=== PATIENT | female | born 1985 | race Caucasian/White ===

== ENCOUNTER 2018-09-01 16:12 | Outpatient (REF) | payer OTHER, SELFPAY ==
--- NOTE | 2018-09-01 15:40 | ENDO_PTH ---
PATIENT: Sima Mann LOC: [facility] U#:[id number] AGE/SX: 32/F ROOM: RE09/01/[address]: Sima Boucher : 1985 BED: DIS: 09/01/2018 SPEC #: [id number] RECD: 09/01/18 17:40 STATUS: ELDON VAZQUEZ #: [id number] FRANCISCA: 09/01/18 15:[address]: Sima Boucher DEPT: Surgical Specimen RECD BY: Amy Rangel ENTERED: 09/01/18 17:40 SP TYPE: Endo OTHR DR: Fanta Keane Tissues: 1 - ENDOCERVICAL BX/CURRETTE 2 - CERVICAL BIOPSY Procedures: GROSS AND MICRO LEVEL 4 IMMUNOPEROXIDASE STAIN P16 IPEX Comments: [id number]
== END 2018-09-01 16:32 ==
LOC: LBN 16:12
PROVIDERS: PCP Family Medicine; Visit Provider Obstetrics & Gynecology Gynecology
DX: N87.1 Moderate cervical dysplasia (principal); R87.610 Atypical squamous cells of undetermined significance on cytologic smear of cervix (ASC-US); B97.7 Papillomavirus as the cause of diseases classified elsewhere
CPT/HCPCS: 88305; 88342; 88361

== ENCOUNTER 2018-10-19 11:31 | Outpatient (CLI) | payer OTHER, SELFPAY ==
--- NOTE | 2018-10-19 11:26 | DI.RAD_ITS ---
SYMPTOMS/DIAGNOSIS: CACHORRO WRIST PAIN LEFT WRIST: The bones are normally mineralized. No bony erosions or degenerative changes are seen. IMPRESSION: Negative left wrist. RIGHT WRIST: The bones are normally mineralized. No bony erosions are seen. The carpal alignment appears normal. IMPRESSION: Negative right wrist.
== END 2018-10-19 11:51 ==
PROVIDERS: PCP Family Medicine; Visit Provider Physician Assistant
DX: M25.531 Pain in right wrist (principal); M25.532 Pain in left wrist
CPT/HCPCS: 73110

== ENCOUNTER 2018-10-23 12:11 | Outpatient (REF) | payer OTHER, SELFPAY ==
--- NOTE | 2018-10-23 08:40 | CER_PTH ---
PATIENT: Sima Mann LOC: [facility] U#:[id number] AGE/SX: 33/F ROOM: RE10/23/[address]: Sima Boucher : 1985 BED: DIS: 10/23/2018 SPEC #: [id number] RECD: 10/23/18 13:02 STATUS: ELDON VAZQUEZ #: [id number] FRANCISCA: 10/23/18 08:[address]: Sima Boucher DEPT: Surgical Specimen RECD BY: Amy Rangel ENTERED: 10/23/18 13:03 SP TYPE: CER OTHR DR: Fanta Keane Tissues: 1 - CERVICAL BIOPSY 2 - CERVICAL BIOPSY 3 - CERVICAL BIOPSY 4 - CERVICAL BIOPSY Procedures: GROSS AND MICRO LEVEL 4 Comments: [id number]
== END 2018-10-23 12:31 ==
LOC: LBN 12:11
PROVIDERS: PCP Family Medicine; Visit Provider Obstetrics & Gynecology Gynecology
DX: N87.9 Dysplasia of cervix uteri, unspecified (principal); R87.613 High grade squamous intraepithelial lesion on cytologic smear of cervix (HGSIL)
CPT/HCPCS: 88305

== ENCOUNTER 2018-11-26 08:47 | Day surgery (SDC) | payer OTHER, SELFPAY ==
[2018-11-26 09:00] VITALS: BP 126/80; PULSE 83; RESP 16; TEMP 36.3; O2SAT 98
[2018-11-26] MEDS: Lactated Ringers 1,000 ML 80 ML IV (09:25)
[2018-11-26 10:46] LABS: HCG Quant, Pregnancy < 1 mIU/mL (1-3)
[2018-11-26] MEDS: Lidocaine 1% Multi-Dose 50 ML VIAL (11:16)
--- NOTE | 2018-11-26 11:37 | PDOC.DSDIS_ITS ---
Discharge Plan Disposition Patient Disposition: HOME Condition: Good Discharge Details Reason For Visit: L Carpal Tunnel Syndrome Attending Provider: Galileo Godinez Primary Care Provider: Fanta Keane Home Meds and New Rx's Prescriptions: New acetaminophen 500 mg tablet 1,000 mg PO Q8H PRN (Reason: pain) Qty: 60 RF: 3 ibuprofen 600 mg tablet 600 mg PO TID PRN (Reason: pain) Qty: 60 RF: 3 Continued Mirena 1 EACH intrauterine device 1 ea Intrauterine ONCE Qty: 1 RF: 0 cholecalciferol (vitamin D3) 1,000 UNIT capsule 1,000 unit PO DAILY RF: 0 escitalopram oxalate [Lexapro] 5 MG tablet 5 mg PO DAILY RF: 0 multivitamin [Daily Multi-Vitamin] 1 EACH tablet 1 ea PO RF: 0 prochlorperazine maleate 5 MG tablet 1 - 2 tab PO Q8H PRN Qty: 90 RF: 4 Discontinued ibuprofen [Advil] 200 MG tablet 800 mg PO PRN RF: 0 Discharge Instructions Stand Alone Forms: Gretchen Mccann Tunnel Release Referrals: Galileo Godinez MD [ [facility] STAFF PHYSICIAN] - Equipment/Supplies: Sling Activity:: Elevate Remove Dressings/Wound Care:: 48 hours Shower/Bathe:: 48 hours Diet:: As Tolerated Discharge Orders Discharge Orders: Discharge Order (Routine); Ordered 11/26/18 Ordered By: Galileo Godinez DS: Diagnosis Discharge Diagnosis (1) Carpal tunnel syndrome of left wrist: Status: Acute
[2018-11-26 12:30] VITALS: BP 128/80; PULSE 71; RESP 16; TEMP 35.8; O2SAT 99
--- NOTE | 2018-11-26 22:40 | W.PM.OP ---
Date of service: 11/26/18 Time of Service: 11:40 Operative Note DATE OF PROCEDURE: 11/26/18 PRE-OP DIAGNOSIS: Left Carpal Tunnel Syndrome POST-OP DIAGNOSIS: same PROCEDURE: Left Endoscopic Carpal Tunnel Release SURGEON: Galileo Godinez ANESTHESIA: MAC ESTIMATED BLOOD LOSS: 0 PATHOLOGY: none sent TOURNIQUET TIME: 5 COMPLICATIONS: None Patient was transported to: same day Patient's condition: stable Indications: I have seen Sharonda in clinic for symptoms of carpal tunnel syndrome. The numbness, tingling, and pain limited function. Clinical exam findings confirmed the diagnosis of carpal tunnel syndrome. Nonoperative measures such as bracing, time, activity modifications had been tried but disability and pain persisted. I discussed carpal tunnel release with the patient. I reviewed the risks of the procedure to include, but not limited to, bleeding, infection, pain, stiffness, incomplete release, damage to nerves or vessels, persistent numbness, recurrence. Despite these risks, the patient elected to proceed. Findings: There was tightened carpal tunnel. This was dilated and released successfully with the endoscopic with increased space within the tunnel. The antebrachial fascia was released proximally freeing the median nerve at the wrist. Procedure Description: Sharonda was greeted in the preoperative holding area where the correct side was identified and marked. The consent was reviewed with the patient and signed. The history and physical was updated. All questions were answered. Sharonda was taken back to the operating room. The patient was placed into the supine position on the operating room table with the left arm on an arm board. A nonsterile tourniquet was placed high onto the arm. All bony prominences were well padded. Prophylactic antibiotics in the form of Cefazolin were administered. The left arm was then prepped with Chloraprep and draped in a standard fashion with stockinette and extremity drape. A timeout to confirm correct identity, side and site, procedure, allergies, anesthesia, and medical concerns was performed. The surgical site was marked in the volar wrist creases in line with the radial border of the fourth ray. This area was anesthetized with approximately 6cc of 1% Lidocaine. The limb was then exsanguinated with an Esmarch. The skin was incised with a 15 blade, approximately 1cm. The skin only was cut and the deeper tissue was dissected bluntly with a tenotomy scissor, avoiding passing nerve and venous structures. The fascia was penetrated and opened bluntly. A two-prong skin hook was placed under this proximal fascial edge. A series of hamate finders were used to identify and dilate the carpal tunnel. Synovial elevator was used to free synovial attachments to the underside of the transverse carpal ligament. My thumb was kept in the palm to gillian the distal extent of the carpal tunnel and correctly position the hand. The Microaire endoscope was inserted without difficulty and without resistance. Excellent visualization showed horizontally running fibers of the transverse carpal ligament (TCL). The distal extent of the TCL was visualized and the end of the scope palpated with the thumb. The blade was elevated and withdrawn from distal to proximal. The TCL was split into two flaps. The endoscope was reinserted to confirm complete release and any remnant ligament was incised. The scope was withdrawn and the proximal aspect of the carpal tunnel was grossly inspected and appeared release with the median nerve visible. The antebrachial fascia at the level of the wrist was then freed from the overlying skin and then the underlying median nerve with blunt dissection. This was transected longitudinally for about 3cm proximal to the wrist incision. The wound was then irrigated with easy flow of irrigant distally and proximally. The incision was closed with a single 4-0 Nylon suture. The wound was dressed with Xeroform, Gauze, Kerlix and Naren. The tourniquet was deflated with the initial dressing and held with some pressure. Blood flow returned easily to all digits with capillary refill less than 2 seconds. The patient tolerated the procedure well and was returned to the Same Day Surgery area in a stable condition suffering no known complication.
== END 2018-11-26 12:33 | disposition home or self-care (01) ==
PROVIDERS: PCP Family Medicine; Visit Provider Student in an Organized Health Care Education/Training Program
PROC: 01N54ZZ Release Median Nerve, Percutaneous Endoscopic Approach (ICD-10-PCS; CPT 29848; principal; 2018-11-26 10:15)
DX: G56.02 Carpal tunnel syndrome, left upper limb (principal)
CPT/HCPCS: 29848; 36415; 84702; L3650

== ENCOUNTER 2018-12-01 18:52 | Emergency (ER) | payer OTHER, SELFPAY ==
--- NOTE | 2018-12-01 18:56 | W.ED.GENAD ---
Discharge Plan Disposition Patient Disposition: HOME Condition: Improving Discharge Details Chief Complaint: Urinary Clinical Impression: UTI (urinary tract infection) Primary Care Provider: Fanta Keane ED Provider: Caleb Stuart Home Meds and New Rx's Prescriptions: New sulfamethoxazole-trimethoprim [Bactrim DS] 800-160 mg tablet 1 tab PO BID 5 Days Qty: 10 RF: 0 No Action Mirena 1 EACH intrauterine device 1 ea Intrauterine ONCE Qty: 1 RF: 0 cholecalciferol (vitamin D3) 1,000 UNIT capsule 1,000 unit PO DAILY RF: 0 escitalopram oxalate [Lexapro] 5 MG tablet 5 mg PO DAILY RF: 0 multivitamin [Daily Multi-Vitamin] 1 EACH tablet 1 ea PO RF: 0 prochlorperazine maleate 5 MG tablet 1 - 2 tab PO Q8H PRN Qty: 90 RF: 4 acetaminophen 500 mg tablet 1,000 mg PO Q8H PRN (Reason: pain) Qty: 60 RF: 3 ibuprofen 600 mg tablet 600 mg PO TID PRN (Reason: pain) Qty: 60 RF: 3 Discharge Instructions Instructions: Urinary Tract Infection in Women (ED) Additional Instructions: Home to rest. Small, frequent sips of fluids to maintain hydration. Take Bactrim as prescribed. May continue Pyridium 3 times daily for 2 days. Return if you develop back pain, fever, or any other acute concern Medical Decision Making Pleasant, delightful, healthy 33-year-old female presents with hours of urinary frequency and burning similar to previous UTI. She has otherwise recently been well. UA with positive leuk esterase, consistent with urinary tract infection given her symptoms. Discussed with her treatment options and will initiate a course of Bactrim. She is stable for outpatient management. HPI General Mode of arrival: ambulatory. Date/Time Provider Initiated Documentation: 12/01/18 18:52. Limitations to Documentation: no limitations. Information obtained by: patient. History of Present Illness 33 year old F presents to the emergency department with the chief complaint of Question UTI, described as mild, Quality is described as burning, and is localized to the pelvis. Patient reports no radiation. Patient started experiencing this hour(s) No relieving factors improve symptom(s), No exacerbating factors reported . Patient did receive the following treatments prior to arrival, other (pyridium) Related Data Home Medications Medication Instructions Recorded Confirmed Mirena 1 ea INTRAUTERINE ONCE #1 implant 06/28/16 12/01/18 cholecalciferol (vitamin D3) 1,000 unit PO DAILY 10/20/17 12/01/18 escitalopram oxalate [Lexapro] 5 mg PO DAILY tab-cap 10/20/17 12/01/18 multivitamin [Daily Multi-Vitamin] 1 ea PO 10/21/17 11/13/18 prochlorperazine maleate 1 - 2 tab PO Q8H PRN #90 tab-cap 10/21/17 12/01/18 acetaminophen 1,000 mg PO Q8H PRN #60 tab 11/26/18 12/01/18 ibuprofen 600 mg PO TID PRN #60 tab 11/26/18 12/01/18 sulfamethoxazole-trimethoprim 1 tab PO BID 5 Days #10 tab 12/01/18 [Bactrim DS] Previous Rx's Medication Instructions Recorded prochlorperazine maleate 1 - 2 tab PO Q8H PRN #90 tab-cap 10/21/17 acetaminophen 1,000 mg PO Q8H PRN #60 tab 11/26/18 ibuprofen 600 mg PO TID PRN #60 tab 11/26/18 sulfamethoxazole-trimethoprim 1 tab PO BID 5 Days #10 tab 12/01/18 [Bactrim DS] Allergies Allergy/AdvReac Type Severity Reaction Status Date / Time shellfish derived Allergy Intermediate Hives, Unverified 12/01/18 19:03 Nausea,vomitting Environmental Allergy Intermediate Sneezing, Uncoded 12/01/18 19:03 watery eyes Review of Systems Review of Systems No vaginal discharge or bleeding. Patient is otherwise recently been well. Four systems reviewed and otherwise [facility] Medical History KENNA II (cervical intraepithelial neoplasia II) (Acute) Headache (Chronic) Contraception, device intrauterine (Chronic) UTI (urinary tract infection) (Resolved) Surgical History H/O LEEP (Acute) Social History Smoking/Tobacco Use Status: Former Tobacco Use Quit Date: 08/25/11 Tobacco: How many years used: 6 Alcohol Intake: current Alcohol Intake frequency: 0-2 drinks per day Alcohol type: beer, wine and hard liquor Drug use: Rarely Substance use type: marijuana Number of Children: 0 current occupation: Studying for masters in social work Seatbelt use: always Do you feel safe at home: Yes Do you feel safe in your relationship?: Yes Female Reproductive History Menstrual control method: progestin IUCD History History 0 Para Hx # Term Pregnancies Multiple births Hx # Pregnancies Ectopic pregnancies AB induced Hx Number of Living Children AB spontaneous Exam Narrative Exam Narrative: GEN: awake, alert, oriented 3. Pleasant, well groomed, interactive. HEAD: Normocephalic, atraumatic ABDOMEN: Soft, nontender, no mass. Neuro: Grossly normal neurologic exam, conversant, interactive. Psych: Speech fluent, thoughts congruent, affect normal
--- NOTE | 2018-12-01 18:59 | ED.GENADUL_ITS ---
Discharge Plan Disposition Patient Disposition: HOME Condition: Improving Discharge Details Chief Complaint: Urinary Clinical Impression: UTI (urinary tract infection) Primary Care Provider: Fanta Keane ED Provider: Caleb Stuart Home Meds and New Rx's Prescriptions: New sulfamethoxazole-trimethoprim [Bactrim DS] 800-160 mg tablet 1 tab PO BID 5 Days Qty: 10 RF: 0 No Action Mirena 1 EACH intrauterine device 1 ea Intrauterine ONCE Qty: 1 RF: 0 cholecalciferol (vitamin D3) 1,000 UNIT capsule 1,000 unit PO DAILY RF: 0 escitalopram oxalate [Lexapro] 5 MG tablet 5 mg PO DAILY RF: 0 multivitamin [Daily Multi-Vitamin] 1 EACH tablet 1 ea PO RF: 0 prochlorperazine maleate 5 MG tablet 1 - 2 tab PO Q8H PRN Qty: 90 RF: 4 acetaminophen 500 mg tablet 1,000 mg PO Q8H PRN (Reason: pain) Qty: 60 RF: 3 ibuprofen 600 mg tablet 600 mg PO TID PRN (Reason: pain) Qty: 60 RF: 3 Discharge Instructions Instructions: Urinary Tract Infection in Women (ED) Additional Instructions: Home to rest. Small, frequent sips of fluids to maintain hydration. Take Bactrim as prescribed. May continue Pyridium 3 times daily for 2 days. Return if you develop back pain, fever, or any other acute concern Medical Decision Making Pleasant, delightful, healthy 33-year-old female presents with hours of urinary frequency and burning similar to previous UTI. She has otherwise recently been well. UA with positive leuk esterase, consistent with urinary tract infection given her symptoms. Discussed with her treatment options and will initiate a course of Bactrim. She is stable for outpatient management. HPI General Mode of arrival: ambulatory . Date/Time Provider Initiated Documentation: 12/01/18 18:52 . Limitations to Documentation: no limitations . Information obtained by: patient . History of Present Illness 33 year old F presents to the emergency department with the chief complaint of Question UTI, described as mild, Quality is described as burning, and is localized to the pelvis. Patient reports no radiation. Patient started experiencing this hour(s) No relieving factors improve symptom(s), No exacerbating factors reported . Patient did receive the following treatments prior to arrival, other (pyridium) Related Data Home Medications Medication Instructions Recorded Confirmed Mirena 1 ea INTRAUTERINE ONCE #1 implant 06/28/16 12/01/18 cholecalciferol (vitamin D3) 1,000 unit PO DAILY 10/20/17 12/01/18 escitalopram oxalate [Lexapro] 5 mg PO DAILY tab-cap 10/20/17 12/01/18 multivitamin [Daily Multi-Vitamin] 1 ea PO 10/21/17 11/13/18 prochlorperazine maleate 1 - 2 tab PO Q8H PRN #90 tab-cap 10/21/17 12/01/18 acetaminophen 1,000 mg PO Q8H PRN #60 tab 11/26/18 12/01/18 ibuprofen 600 mg PO TID PRN #60 tab 11/26/18 12/01/18 sulfamethoxazole-trimethoprim 1 tab PO BID 5 Days #10 tab 12/01/18 [Bactrim DS] Previous Rx's Medication Instructions Recorded prochlorperazine maleate 1 - 2 tab PO Q8H PRN #90 tab-cap 10/21/17 acetaminophen 1,000 mg PO Q8H PRN #60 tab 11/26/18 ibuprofen 600 mg PO TID PRN #60 tab 11/26/18 sulfamethoxazole-trimethoprim 1 tab PO BID 5 Days #10 tab 12/01/18 [Bactrim DS] Allergies Allergy/AdvReac Type Severity Reaction Status Date / Time shellfish derived Allergy Intermediate Hives, Unverified 12/01/18 19:03 Nausea,vomitting Environmental Allergy Intermediate Sneezing, Uncoded 12/01/18 19:03 watery eyes Review of Systems Review of Systems No vaginal discharge or bleeding. Patient is otherwise recently been well. Four systems reviewed and otherwise [facility] Medical History KENNA II (cervical intraepithelial neoplasia II) (Acute) Headache (Chronic) Contraception, device intrauterine (Chronic) UTI (urinary tract infection) (Resolved) Surgical History H/O LEEP (Acute) Social History Smoking/Tobacco Use Status: Former Tobacco Use Quit Date: 08/25/11 Tobacco: How many years used: 6 Alcohol Intake: current Alcohol Intake frequency: 0-2 drinks per day Alcohol type: beer, wine and hard liquor Drug use: Rarely Substance use type: marijuana Number of Children: 0 current occupation: Studying for masters in social work Seatbelt use: always Do you feel safe at home: Yes Do you feel safe in your relationship?: Yes Female Reproductive History Menstrual control method: progestin IUCD History History 0 Para Hx # Term Pregnancies Multiple births Hx # Pregnancies Ectopic pregnancies AB induced Hx Number of Living Children AB spontaneous Exam Narrative Exam Narrative: GEN: awake, alert, oriented 3. Pleasant, well groomed, interactive. HEAD: Normocephalic, atraumatic ABDOMEN: Soft, nontender, no mass. Neuro: Grossly normal neurologic exam, conversant, interactive. Psych: Speech fluent, thoughts congruent, affect normal
[2018-12-01 19:00] VITALS: BP 139/74; PULSE 66; RESP 18; TEMP 36.7; O2SAT 99
[2018-12-01 19:04] LABS: Bilirubin Negative (Negative); Blood Negative (Negative); Clarity Clear; Glucose Negative (Negative); Ketones Negative (Negative); Leukocyte Esterase Trace (Negative); Nitrite Negative (Negative); Specific Gravity <= 1.005 (1.005-1.025); Urobilinogen 0.2 EU/dL (Up TO 0.2)
[2018-12-01 19:12] LABS: Bacteria Rare HPF (Negative); C & S Indicated? No; Casts Negative LPF (Negative); Crystals Negative HPF (Negative); Epithelial Cells Rare HPF (Negative); Mucus Trace (Negative); Other Cells Negative (Negative); RBC Negative (0-2); WBC 0-2 HPF (0-5)
[2018-12-01] MEDS: Sulfameth/Trimeth DS TAB 1 TAB PO ×2 (19:31→19:34)
== END 2018-12-01 19:35 | disposition home or self-care (01) ==
PROVIDERS: Emergency Provider Emergency Medicine; PCP Family Medicine
DX: N39.0 Urinary tract infection, site not specified (principal)
CPT/HCPCS: 81025; 99283; 81003; 81015

== ENCOUNTER 2019-02-12 16:49 | Outpatient (REF) | payer OTHER, SELFPAY ==
[2019-02-12 19:32] LABS: Abs Immature Grans 0.02 k/cumm (0.0-0.09); Absolute Basophil Count 0.04 k/cumm (0.0-0.2); Absolute Eosinophil Count 0.18 k/cumm (0.0-0.7); Absolute Monocyte Count 0.91 k/cumm (0.11-0.7); Absolute Neutrophil Count 5.62 k/cumm (1.2-6.7); Basophils % 0.4; Eosinophils % 1.8; HGB 15.3 g/dL (12.0-15.5); Immature Grans % 0.2; Lymphocytes % 31.4; Mean Corpuscular Hemoglobin 30.9 pg (27.0-33.0); Mean Corpuscular Volume 90.9 fL (80-95); Mean Platelet Volume 9.8 fL (8.0-11.0); Monocytes % 9.2; Platelet Count 229 x1000/uL (130-400); RBC 4.95 m/cumm (4.00-5.20); RBC Distribution Width 13.1 % (11.7-14.6); White Blood Cell Count 9.87 k/cumm (4.4-10.8)
[2019-02-12 22:52] LABS: Anion Gap 13.8 mmol/L (3-11); BUN 13 mg/dL (7-18); CO2 23.2 mmol/L (21.0-32.0); CREATININE 0.68 mg/dL (0.55-1.02); Calcium 8.9 mg/dL (8.5-10.1); Chloride 106 mmol/L (98-107); Glucose 112 mg/dL (70-100); Sodium 143 mmol/L (136-145); TSH (W/Ref FT4) 2.14 uIU/mL (0.358-3.74)
== END 2019-02-12 17:09 ==
LOC: NCHCN 16:49
PROVIDERS: PCP Family Medicine; Visit Provider Family Medicine
DX: R61 Generalized hyperhidrosis (principal)
CPT/HCPCS: 80048; 84443; 85025

== ENCOUNTER 2019-07-09 13:33 | Outpatient (CLI) | payer OTHER, SELFPAY ==
[2019-07-09 14:00] LABS: Bilirubin Negative (Negative); Blood Negative (Negative); Clarity Clear (Clear); Glucose Negative (Negative); Ketones Negative (Negative); Leukocyte Esterase Trace (Negative); Nitrite Positive (Negative); Urobilinogen 0.2 EU/dL (Up TO 0.2)
[2019-07-09 14:12] LABS: WBC 20-50 HPF (0-5)
[2019-07-09 14:13] LABS: Bacteria Rare HPF (Negative); C & S Indicated? Yes; Casts Negative LPF (Negative); Crystals Negative HPF (Negative); Epithelial Cells Few HPF (Negative); Mucus Negative (Negative); Other Cells Negative (Negative); RBC Negative HPF (0-2)
== END 2019-07-09 13:53 ==
PROVIDERS: PCP Family Medicine; Visit Provider Obstetrics & Gynecology
DX: R30.0 Dysuria (principal)
CPT/HCPCS: 81003; 81015; 87086

== ENCOUNTER 2020-06-27 11:36 | Outpatient (REF) | payer OTHER, SELFPAY ==
--- NOTE | 2020-06-27 10:30 | PAPFT_PTH ---
PATIENT: Sima Mann LOC: [facility] U#:[id number] AGE/SX: 34/F ROOM: RE06/27/[address]: Juan Jones : 1985 BED: DIS: 06/27/2020 SPEC #: [id number] RECD: 06/27/20 17:39 STATUS: ELDON REJose Manuel #: [id number] FRANCISCA: 06/27/20 10:[address]: Juan Jones DEPT: [facility] Cytology RECD BY: Amy Rangel Tissues: 1 - CX/ENDOCX FOR PAP SMEARS Procedures: PAP THIN PREP/[facility] Screening HPV DNA PROBE Comments: [id number] ([place])
[2020-06-27 18:52] LABS: Hemoglobin A1C 5.1 % (<5.7)
[2020-06-27 19:09] LABS: Calculated LDL 123 mg/dL (<100); Cholesterol 185 mg/dL (<200); HDL Cholesterol 46 mg/dL (40-60); TSH (W/Ref FT4) 4.88 uIU/mL (0.36-3.74); Triglyceride 81 mg/dL (<150)
[2020-06-27 19:31] LABS: FREE T4 1.15 ng/dL (0.76-1.46)
== END 2020-06-27 11:56 ==
LOC: NCHCN 11:36
PROVIDERS: PCP Family Medicine; Visit Provider Family Medicine
DX: R63.5 Abnormal weight gain (principal); Z00.00 Encounter for general adult medical examination without abnormal findings; Z12.4 Encounter for screening for malignant neoplasm of cervix; Z11.51 Encounter for screening for human papillomavirus (HPV); R87.612 Low grade squamous intraepithelial lesion on cytologic smear of cervix (LGSIL)
CPT/HCPCS: 80061; 88142; 83036; 84439; 84443; 87624

== ENCOUNTER 2020-10-07 08:57 | Emergency (ER) | payer OTHER, SELFPAY ==
[2020-10-08 01:12] LABS: COVID-19 RT-PCR UVMMC Result Negative (Negative)
--- NOTE | 2020-10-08 13:30 | NUR.NOTE ---
patient notified @ [id number] 10/08/20 of negative covid results.
--- NOTE | 2020-10-22 14:19 | ED.FU.B_ITS ---
Did not evaluate this patient.
--- NOTE | 2020-10-22 14:19 | W.ED.FU ---
Did not evaluate this patient.
== END 2020-10-07 09:15 ==
LOC: ER 09:16
PROVIDERS: Emergency Provider Student in an Organized Health Care Education/Training Program; PCP Family Medicine
DX: Z20.822 Contact with and (suspected) exposure to COVID-19 (principal)
CPT/HCPCS: 99281; U0003

== ENCOUNTER 2021-02-21 18:13 | Outpatient (REF) | payer OTHER, SELFPAY | END 2021-02-21 18:14 | disposition home or self-care (01) | LOC: LBN 18:13 | PROVIDERS: PCP Family Medicine; Visit Provider Obstetrics & Gynecology Gynecology | DX: N30.00 Acute cystitis without hematuria (principal) | CPT/HCPCS: 87086 ==

== ENCOUNTER 2021-05-05 10:52 | Emergency (ER) | payer OTHER, SELFPAY ==
[2021-05-05 10:55] VITALS: BP 122/78; PULSE 74; RESP 14; TEMP 36.8; O2SAT 97
--- NOTE | 2021-05-05 11:10 | ED.GENADUL_ITS ---
Discharge Plan Disposition Patient Disposition: HOME Condition: Stable Discharge Details Clinical Impression: Cellulitis Primary Care Provider: Juan Jones ED Provider: Brandi Velasco Home Meds and New Rx's Prescriptions: New amoxicillin-pot clavulanate [Augmentin] 875-125 mg tablet 1 tab PO BID Qty: 14 RF: 0 Continued Mirena 1 EACH intrauterine device 1 ea Intrauterine ONCE Qty: 1 RF: 0 cholecalciferol (vitamin D3) 1,000 UNIT capsule 1,000 unit PO DAILY RF: 0 escitalopram oxalate [Lexapro] 5 MG tablet 5 mg PO DAILY RF: 0 multivitamin [Daily Multi-Vitamin] 1 EACH tablet 1 ea PO RF: 0 prochlorperazine maleate 5 MG tablet 1 - 2 tab PO Q8H PRN Qty: 90 RF: 4 ciprofloxacin HCl [Cipro] 500 mg tablet 500 mg PO BID Qty: 10 RF: 0 sulfamethoxazole-trimethoprim [Bactrim DS] 800-160 mg tablet 1 tab PO BID Qty: 6 RF: 0 acetaminophen 500 mg tablet 1,000 mg PO Q8H PRN (Reason: pain) Qty: 60 RF: 3 ibuprofen 600 mg tablet 600 mg PO TID PRN (Reason: pain) Qty: 60 RF: 3 Discharge Instructions Instructions: Cellulitis (ED) Additional Instructions: Please continue to encourage elevation and rest of your leg. Continue with the Augmentin as prescribed. Please continue your probiotic. And use Tylenol and ibuprofen as needed for discomfort. Please follow-up with primary care next week for reevaluation. If you develop fever/chills, spreading of the redness, increased pain or other new/worsening symptoms seek care urgently once again. Referrals: Juan Jones [Primary Care Provider] - Discharge Data Discharge Date/Time-TO BE ENTERED AT DEPARTURE: 05/05/21 11:39 Medical Decision Making Patient is a pleasant 35-year-old female presenting today with a recheck of have ankle and knee. Patient was seen by physician 6 days ago at which time she started on Augmentin with concern for cellulitis. 2 weeks ago patient suffered an injury to this area when a horse stepped on her ankle. Patient does have a history of trimalleolar fracture with hardware in place under the area of injury. She states that the erythema has been improving but that her discomfort and erythema is continued to persist despite being on antibiotics for the past several days. Last dose of antibiotics is scheduled to be this evening. She denies any fevers or chills. Denies any pain with weightbearing. She does have discomfort with stretching skin. On exam, patient appears nontoxic. She does have a circular area of erythema overlying an abrasion to the medial aspect of the ankle. To the medial malleolus. She is good range of motion. No evidence to suggest abscess. 2+ distal pulses. Based on her description, the erythema seems to have responded to the augmentin. However, I am concerned that the infection will require further antibiotics we will continue her on the Augmentin. I encourage that she elevate the extremity as much as possible over the next several days while she has off from work. Advise follow-up with primary care next week for reevaluation. Strict return precautions were discussed. Her exam and history at this time do not suggest that this is traveling into deeper structures or involving the plate or osteomyelitis. All of her questions and concerns were addressed, she is in agreement with this plan. HPI General Mode of arrival: ambulatory . Date/Time Provider Initiated Documentation: 05/05/21 11:10 . Limitations to Documentation: no limitations . Information obtained by: patient and RN notes reviewed . History of Present Illness 35 year old F presents to the emergency department with the chief complaint of left medial ankle pain, erythema, described as mild, with intensity rated at 1. Quality is described as aching, and is localized to the left and lower extremity. Patient reports no radiation. Patient started experiencing this week(s) and it has been constant. Rest improves symptom(s), No exacerbating factors reported . Patient notes no other symptoms.. Patient did receive the following treatments prior to arrival, other (has been on augmentin) Related Data Home Medications Medication Instructions Recorded Confirmed Mirena 1 ea INTRAUTERINE ONCE #1 implant 06/28/16 07/13/19 cholecalciferol (vitamin D3) 1,000 unit PO DAILY 10/20/17 07/13/19 escitalopram oxalate [Lexapro] 5 mg PO DAILY tab-cap 10/20/17 07/13/19 multivitamin [Daily Multi-Vitamin] 1 ea PO 10/21/17 07/13/19 prochlorperazine maleate 1 - 2 tab PO Q8H PRN #90 tab-cap 10/21/17 07/13/19 acetaminophen 1,000 mg PO Q8H PRN #60 tab 11/26/18 07/13/19 ibuprofen 600 mg PO TID PRN #60 tab 11/26/18 07/13/19 ciprofloxacin HCl 500 mg tablet 500 mg PO BID #10 tab 07/09/19 07/13/19 sulfamethoxazole 800 1 tab PO BID #6 tab 02/21/21 mg-trimethoprim 160 mg tablet amoxicillin-pot clavulanate 1 tab PO BID #14 tab 05/05/21 [Augmentin] Previous Rx's Medication Instructions Recorded prochlorperazine maleate 1 - 2 tab PO Q8H PRN #90 tab-cap 10/21/17 acetaminophen 1,000 mg PO Q8H PRN #60 tab 11/26/18 ibuprofen 600 mg PO TID PRN #60 tab 11/26/18 ciprofloxacin HCl 500 mg tablet 500 mg PO BID #10 tab 07/09/19 sulfamethoxazole 800 1 tab PO BID #6 tab 02/21/21 mg-trimethoprim 160 mg tablet amoxicillin-pot clavulanate 1 tab PO BID #14 tab 05/05/21 [Augmentin] Allergies Allergy/AdvReac Type Severity Reaction Status Date / Time shellfish derived Allergy Intermediate Hives, Unverified 05/05/21 11:02 Nausea,vomitting Environmental Allergy Intermediate Sneezing, Uncoded 05/05/21 11:02 watery eyes General Stated Complaint: Cellulitis LULU: 4 Review of Systems Constitutional Constitutional: Reports as per HPI, Denies chills, Denies fever(s) and Denies weakness Musculoskeletal Musculoskeletal: Reports as per HPI and Denies tingling Integumentary/Breasts Skin/Breast: Reports as per HPI, Reports erythema, Reports skin pain and Reports wounds Neurologic Neurologic: Reports as per HPI, Denies tingling, Denies paresthesias and Denies weakness [facility] Medical History (Updated 05/05/21 @ 11:23 by JEFE Montilla) KENNA II (cervical intraepithelial neoplasia II) 08/2018 colpo directed biopsies. 10/23/2018 LEEP: Squamous metaplasia, no dysplasia. Recommend repeat Pap?HPV in 1 year. Contraception, device intrauterine 2017 old Mirena IUD removed and new one inserted. No plans for having children. Headache 09/2017 Neg MRI. Rx with Mg and Compazine for prophylaxis. UTI (urinary tract infection) 1-2x/yr. Surgical History H/O LEEP 10/23/2018. No dysplasia Social History Smoking/Tobacco Use Status: Former Tobacco Use Quit Date: 08/25/11 Tobacco: How many years used: 6 Smoking risk assessment performed?: Yes Alcohol Intake: current Alcohol Intake frequency: 0-2 drinks per day Alcohol type: beer, wine and hard liquor Drug use: Rarely Substance use type: marijuana Number of Children: 0 current occupation: Studying for masters in social work Seatbelt use: always Do you feel safe at home: Yes Do you feel safe in your relationship?: Yes Female Reproductive History Menstrual control method: progestin IUCD History History 0 Para Hx # Term Pregnancies Multiple births Hx # Pregnancies Ectopic pregnancies AB induced Hx Number of Living Children AB spontaneous Exam Const General: cooperative, healthy appearing, comfortable, no acute distress, well developed and well groomed Nutritional Appearance: average body habitus and well nourished Orientation: alert and awake Resp Effort & Inspection: normal respiratory effort, able to speak in complete sentences and no respiratory distress Cardio Rate: regular rate Rhythm: regular rhythm Skin General skin exam: ecchymosis and erythema Trauma: abrasion Neuro General: patient alert and patient awake Cognition: normal cognition Speech: speech normal Gait: normal gait Motor: muscle tone normal throughout Sensory Exam: no sensory deficits noted Extrem Ankle/foot/toe images: 1. patient has central area of abrasion that is closed, healing. No discharge. Surrounding tissue is erythematous and tender. This is overlying a previous surgical incision. No fluctuance of focal area of swelling to suggest abscess. More distant from this area is scant ecchymosis that is yellowing. 2+ distal pulses. Sensatio intact. ROM intact Psych Appearance: grossly normal and well kempt Mental Status: mental status grossly normal Speech and Movement: speech and movement normal Course Vital Signs Vital signs: Vital Signs Temperature 36.8 C 05/05/21 10:55 Pulse 74 05/05/21 10:55 Respiratory Rate 14 05/05/21 10:55 Blood Pressure 122/78 05/05/21 10:55 Pulse Oximetry 97 05/05/21 10:55 Temperature 36.8 C 05/05/21 10:55 Temperature Source Skin 05/05/21 10:55 Pulse 74 05/05/21 10:55 Respiratory Rate 14 05/05/21 10:55 Respiratory Effort 05/05/21 11:02 Blood Pressure 122/78 05/05/21 10:55 Pulse Oximetry 97 05/05/21 10:55 Oxygen Delivery Method Room Air 05/05/21 10:55 Oxygen Flow Rate 0 05/05/21 10:55 Pain Level 1 05/05/21 10:55
== END 2021-05-05 11:39 | disposition home or self-care (01) ==
PROVIDERS: Emergency Provider Physician Assistant; PCP Family Medicine
DX: L03.116 Cellulitis of left lower limb (principal)
CPT/HCPCS: 99283

== ENCOUNTER 2021-05-09 10:30 | Outpatient (REF) | payer OTHER, SELFPAY | END 2021-05-09 10:31 | disposition home or self-care (01) | LOC: NCHCN 10:30 | PROVIDERS: PCP Family Medicine; Visit Provider Family Medicine | DX: L08.9 Local infection of the skin and subcutaneous tissue, unspecified (principal) | CPT/HCPCS: 87070; 87205 ==

== ENCOUNTER 2021-10-19 19:26 | Outpatient (CLI) | payer OTHER, SELFPAY ==
[2021-10-19 16:52] LABS: HCG Quant, Pregnancy 76123 mIU/mL (1-3)
== END 2021-10-19 19:27 | disposition home or self-care (01) ==
LOC: LBO 19:27
PROVIDERS: PCP Family Medicine; Visit Provider Advanced Practice Midwife
DX: O20.0 Threatened abortion (principal)
CPT/HCPCS: 36415; 86900; 86901; 84702

== ENCOUNTER 2021-10-24 17:44 | Outpatient (REF) | payer OTHER, SELFPAY ==
[2021-10-24 16:42] LABS: Source Nasal/Nares
[2021-10-24 18:57] LABS: COVID-19 PCR Negative (Negative)
== END 2021-10-24 17:45 | disposition home or self-care (01) ==
LOC: LBN 17:44
PROVIDERS: PCP Family Medicine; Visit Provider Obstetrics & Gynecology
DX: O02.1 Missed abortion (principal); Z20.822 Contact with and (suspected) exposure to COVID-19
CPT/HCPCS: 87635

== ENCOUNTER 2021-10-25 09:47 | Outpatient (CLI) | payer OTHER, SELFPAY ==
[2021-10-25 12:59] LABS: HCT 42.5 % (36.0-46.0); HGB 14.5 g/dL (11.2-15.7); MCH 30.1 pg (27.0-33.0); MCHC 34.1 % (32.0-36.0); MCV 88.2 fL (80-95); MPV 8.8 fL (8.0-11.0); Platelet Count 236 10^3/uL (130-400); RBC 4.82 10^6/uL (3.93-5.22); RDW 12.4 % (11.7-14.6); RDW-SD 40.2 fL; WBC 13.04 10^3/uL (4.4-10.8)
== END 2021-10-25 09:48 | disposition home or self-care (01) ==
LOC: LBO 09:47
PROVIDERS: PCP Family Medicine; Visit Provider Obstetrics & Gynecology
DX: Z01.818 Encounter for other preprocedural examination (principal)
CPT/HCPCS: 36415; 85027; 86850; 86900; 86901

== ENCOUNTER 2021-10-26 06:44 | Day surgery (SDC) | payer OTHER, SELFPAY ==
[2021-10-26] VITALS (9 sets, daily range): BP systolic 104–126; BP diastolic 50–108; PULSE 62–74; RESP 12–18; TEMP 36.1–36.6; O2SAT 95–98; BMI 36.2
--- NOTE | 2021-10-26 07:05 | W.ANESPRE ---
General Info Date of Service Date Performed: 10/26/21 Height: 5 ft 2 in Weight: 89.811 kg Body Mass Index (BMI): 36.2 Surgical Procedure: Operation Date: 10/26/21 07:40 Proposed Procedure Side Surgeon p Suction Completion D&C Reshma Donnelly MD Meds Allergies and Home Medications Allergies Allergy/AdvReac Type Severity Reaction Status Date / Time shellfish derived Allergy Intermediate Hives, Unverified 10/26/21 07:00 Nausea,vomitting amoxicillin Allergy Skin Rash Verified 10/26/21 07:00 Environmental Allergy Intermediate Sneezing, Uncoded 10/26/21 07:00 watery eyes Home Medication Medication Instructions Recorded prenat.vits,og,xum-pacx-kuoea 1 tab PO DAILY 09/18/21 escitalopram oxalate 5 mg tablet 5 mg PO DAILY 10/26/21 Current Visit Medications: Current Medications Generic Name Dose Route Start Last Admin Trade Name Freq PRN Reason Stop Dose Admin Doxycycline Hyclate 200 mg 10/26/21 06:00 Doxycycline Hyclate 100 Mg Cap PO 10/26/21 18:00 PREOP GRISEL Ringer's Solution 1,000 mls @ 125 mls/hr 10/26/21 06:00 IV 11/22/21 23:59 INFUSION GRISEL IV Miscellaneous Supplies 1 each 10/26/21 06:00 Iv Access IV 11/22/21 23:59 DIRECTED GRISEL Sodium Chloride 0 ml 10/26/21 06:00 Normal Saline Flush 10 Ml Syr IV 11/22/21 23:59 PRN PRN Sodium Chloride 0 ml 10/26/21 06:00 Normal Saline 10 Ml Vial IJ 11/22/21 23:59 DIRECTED PRN Sterile Water 0 ml 10/26/21 06:00 Water,Injection,Sterile 10 Ml Vial IJ 11/22/21 23:59 DIRECTED PRN PFSH Active Problems Active Problems: Problem Status Onset Code Reactive depression 10/20/17 F32.9 ADHD F90.9 Missed O02.1 Medical History Medical History Carpal tunnel syndrome of left wrist Carpal tunnel syndrome of right wrist KENNA II (cervical intraepithelial neoplasia II) 08/2018 colpo directed biopsies. 10/23/2018 LEEP: Squamous metaplasia, no dysplasia. 06/2020. LGSIL. Neg HPV. FHx: diabetes mellitus (06/28/16) for HgbA1C screening w/ next blood draw; pt to call and give a heads up Fracture of left ankle Headache 09/2017 Neg MRI. Rx with Mg and Compazine for prophylaxis. High blood pressure Migraine with aura and without status migrainosus, not intractable (10/21/17) UTI (urinary tract infection) 1-2x/yr. Surgical History Surgical History (Updated 10/26/21 @ 06:57 by Vibha Arredondo) H/O LEEP 10/23/2018. No dysplasia History of carpal tunnel surgery of left wrist History of Surgical Procedure a. Open reduction and internal fixation of bimalleolar ankle fracture left side. History of wisdom tooth extraction Tobacco Smoking/Tobacco Use Status: Former Tobacco Use Alcohol Alcohol Intake: former Substance Use Substance use: Never Substance use type: does not use Prental History History 0 Para Hx # Term Pregnancies Multiple births Hx # Pregnancies Ectopic pregnancies AB induced Hx Number of Living Children AB spontaneous Vital Signs and Lab Results Vital Signs Most Recent Vital Signs in EMR: Temp Pulse Resp BP Pulse Ox 36.1 C L 74 16 126/108 H 97 10/26/21 07:02 10/26/21 07:02 10/26/21 07:02 10/26/21 07:02 10/26/21 07:02 Lab Results Blood Type / Crossmatch: Patient ABO/Rh B Positive 10/25/21 Antibody Screen NEGATIVE 10/25/21 Complete Blood Count: White Blood Count 13.04 10^3/uL (4.4-10.8) H 10/25/21 12:34 10/25/21 Red Blood Count 4.82 10^6/uL (3.93-5.22) 10/25/21 12:34 10/25/21 Hemoglobin 14.5 g/dL (11.2-15.7) 10/25/21 12:34 10/25/21 Hematocrit 42.5 % (36.0-46.0) 10/25/21 12:34 10/25/21 Platelet Count 236 10^3/uL (130-400) 10/25/21 12:34 10/25/21 Complete Metabolic Panel: No Data to Display Liver Function Panel: No Data to Display Coagulation Panel: No Data to Display Cardiac Panel: No Data to Display Arterial Blood Gas: No Data to Display Venous Blood Gas: No Data to Display Pancreas Panel: No Data to Display Thyroid Panel: No Data to Display Infectious Disease: Coronavirus (COVID-19)(PCR) Negative (Negative) 10/24/21 16:00 10/24/21 Coronavirus 2019 Source Nasal/Nares 10/24/21 16:00 10/24/21 Blood Cultures: No Data to Display Toxicology Panel: No Data to Display Panel: Beta HCG, Quantitative 95956 mIU/mL (1-3) H 10/19/21 15:55 10/19/21 Anesthesia Assessment and Plan Anesthesia History Personal History: No History of Anesthesia Complications Family History: No Family History of Anesthesia Complications Exercise Tolerance Exercise Tolerance: Metabolic Equivalents>4 Pertinent Negatives Pertinent Negatives: No Symptoms of GERD, No Major Cardiovascular Symptoms or Complaints and No Major Pulmonary Symptoms or Complaints Cardiac & Pulmonary Exam Cardiac Exam: Normal S1/S2 Heart Sounds Pulmonary Exam: Clear Bilateral Breath Sounds Implantable Cardiac Device Does patient have a Pacemaker or an ICD?: No Airway Exam Known Difficult Airway: No Mallampati Class: 3 Mouth Opening: Normal (> 3cm) Thyromental Distance: Greater than 3 cm Neck Range of Motion: Full ROM Neck Circumference: Normal Teeth Condition: Normal Dentition ASA Classification ASA Score: ASA 2 Emergency Case?: No NPO Status NPO Status: NPO Clears >2 hours, Solids >8 hours Status Status: Negative HCG Anesthesia Plan Resuscitation Status: Full Code Anesthesia Technique: General Anesthesia Airway Planned: LMA Monitors Used: Standard Monitors
[2021-10-26] MEDS: Doxycycline Hyclate 100 MG CAP 200 MG PO (07:13)
[2021-10-26] MEDS: Lactated Ringers 1,000 ML 125 ML IV (07:22)
[2021-10-26] MEDS: Lidocaine 1% Multi-Dose 50 ML VIAL (07:53)
--- NOTE | 2021-10-26 08:01 | POCSPONT_PTH ---
PATIENT: Sima Mann LOC: [facility] U#:[id number] AGE/SX: 36/F ROOM: RE10/26/[address]: Reshma Donnelly MD : 1985 BED: DIS: 10/26/2021 SPEC #: [id number] RECD: 10/26/21 12:07 STATUS: ELDON RE #: [id number] FRANCISCA: 10/26/21 08:[address]: Reshma Donnelly DEPT: Surgical Specimen RECD BY: Amy Rangel ENTERED: 10/26/21 12:08 SP TYPE: POCSPONT OTHR DR: Juan Jones Tissues: 1 - ,SPONTANEOUS Procedures: GROSS AND MICRO LEVEL 4 Comments: [id number]
[2021-10-26] MEDS: miSOPROStol 100 MCG TAB 200 MCG PO (08:04)
--- NOTE | 2021-10-26 08:29 | ROE_ITS ---
Date of service: 10/26/21 Time of Service: 07:30 Operative Note Operative Note PRE-OP DIAGNOSIS: missed POST-OP DIAGNOSIS: same PROCEDURE: Suction dilation and curettage SURGEON: Reshma Donnelly ANESTHESIA TYPE: General:No Airway Refer to Anesthesia Record ESTIMATED BLOOD LOSS: 100 COMPLICATIONS: None Patient was transported to: PACU Patient's condition: stable Indications: Pt is 10wks s/p LMP but had a 6wk size pole last week and this week the pole was no longer visualized, just a gestational sac within the uterus. She had no bleeding and desired surgical management. Findings: Normal sized uterus containing POC Procedure Description: After informed consent was signed the patient was taken to the operating room and given General room air anesthesia. SCDs were placed on her legs. She was prepped and draped in the dorsal lithotomy position in the [facility]. A time out was performed. Her bladder was drained of urine. Exam under anesthesia revealed normal external genitalia, vagina normal for age and a normal sized uterus. A speculum was placed into the vagina to reveal the cervix. The anterior lip of the cervix was grasped with a single tooth tenaculum. A paracervical block was given with 8ml of lidocaine. The cervix was dilated. The suction device was assembled and turned on. The uterine cavity was gently suctioned to remove the products of conception. A sharp curettage revealed no further significant tissue and there was a gritty texture in all four quadrants of the uterine cavity. There was some bleeding continuing to come from the cervical os. On bimanual massage the uterus was noted to be firm but mild bleeding continued. Therefore she was given 800mcg of misoprostol OK. She then had good hemostasis. The tenaculum was removed with good hemostasis. The speculum was removed. The patient was placed back into the supine position. She was moved to the stretcher and taken to the recovery room in stable condition.
[2021-10-26] MEDS: Droperidol 5 MG/2 ML VIAL 0.625 MG IVP (08:30)
--- NOTE | 2021-10-26 08:57 | W.PM.DSUDISC ---
Discharge Plan Disposition Patient Disposition: HOME Condition: Stable Discharge Details Attending Provider: Reshma Donnelly Primary Care Provider: Juan Jones Home Meds and New Rx's Prescriptions: Continued prenat.vits,og,ewz-nzcr-emxnx Tablet 1 tab PO DAILY 0RF escitalopram oxalate 5 mg tablet 5 mg PO DAILY 0RF Discharge Instructions Stand Alone Forms: [facility] Post Gynecology Surgery Discharge Orders Discharge Orders: Discharge Order (Routine); Ordered 10/26/21 Ordered By: Reshma Donnelly DS: Diagnosis Discharge Diagnosis (1) Missed : Status: Acute Asessment and Plan: s/p D&C. F/u 2wks
--- NOTE | 2021-10-26 09:45 | W.ANESPOSTOP ---
Postoperative Evaluation Date, Time and Location Date Performed: 10/26/21 Time Performed: 09:45 Patient Location: Day Surgery Unit Vital Signs Most Recent Imported Vital Signs: Most Recent Vital Signs Temp Pulse Resp BP Pulse Ox 36.6 C 66 12 109/62 97 10/26/21 09:10 10/26/21 09:10 10/26/21 09:10 10/26/21 09:10 10/26/21 09:10 Pain Score Most Recent Pain Score: Most Recent Pain Score Pain Level 2 10/26/21 09:10 Assessment Mental Status: Awake (Alert & Oriented to Patient Baseline) Airway and Respiratory Function: Patent airway with normal (patient baseline) respiratory exam Cardiovascular Function: Hemodynamically Stable Hydration Status: Adequately Hydrated Nausea & Vomiting: No Nausea or Vomiting Pain: Pt. Denies Any Pain Peripheral Nerve Block: Patient did not receive a nerve block
== END 2021-10-26 10:33 | disposition home or self-care (01) ==
PROVIDERS: PCP Family Medicine; Visit Provider Obstetrics & Gynecology
PROC: (CPT 59841; principal; 2021-10-26 07:30)
DX: O02.1 Missed abortion (principal); Z3A.10 10 weeks gestation of pregnancy
CPT/HCPCS: 59820; 88305; J1100; J1790; J1885; J2001; J2250; J2405; J2704

== ENCOUNTER 2021-11-29 20:26 | Outpatient (REF) | payer OTHER, SELFPAY ==
[2021-11-29 09:06] LABS: HCG Quant, Pregnancy 77 mIU/mL (1-3)
== END 2021-11-29 20:27 | disposition home or self-care (01) ==
LOC: LBN 20:26
PROVIDERS: PCP Family Medicine; Visit Provider Obstetrics & Gynecology Gynecology
DX: O02.1 Missed abortion (principal)
CPT/HCPCS: 84702

== ENCOUNTER 2021-12-06 23:21 | Outpatient (REF) | payer OTHER, SELFPAY ==
[2021-12-06 22:37] LABS: HCG Quant, Pregnancy 50 mIU/mL (1-3)
== END 2021-12-06 23:22 | disposition home or self-care (01) ==
LOC: LBN 23:21
PROVIDERS: PCP Family Medicine; Visit Provider Obstetrics & Gynecology Gynecology
DX: O02.1 Missed abortion (principal)
CPT/HCPCS: 84702

== ENCOUNTER → 2022-01-23 19:07 | Outpatient (CLI) | payer OTHER, SELFPAY ==
--- NOTE | 2022-01-23 11:00 | DI.MRI_ITS ---
Exam(s) MR PELVIS WO/W EXAM: MR PELVIS WO/W CLINICAL HISTORY: pain s/p IUD placement. ? abnormal uterine cavity,. TECHNIQUE: Multiplanar multisequence MRI was performed. COMPARISON: No exams were available for comparison FINDINGS: Pelvic MRI was performed according to the usual protocol. Additional post contrast T1 weighted imagi ng was obtained. There is no pelvic or inguinal adenopathy. Vascular structures appear intact. Urinary bladder is un remarkable. No focal bowel pathology identified. No significant bony signal abnormality seen. The ovaries show a normal follicular appearance. There is no evidence of an ovarian mass and the ova grayson are symmetrical in size. Uterus has a poorly defined endometrial stripe on T1 weighted and T2 weighted images., On post contra st imaging there is enhancement of the myometrium in fairly homogeneous fashion, again the endometria l stripe stripe is quite difficult to define, there is an area of non enhancement centrally in the ut erine fundus which is nonspecific and could represent region of hemorrhage or other nonenhancing tiss ue. The borders of the uterus are smooth and there is no evidence of invasion of surrounding structu res. IMPRESSION: Poor definition of endometrium in patient with history of prior endometrial D and C/biopsy. No defin ite mass identified, however the lack of definition of the endometrial stripe would make it impossibl e to exclude endometrial carcinoma on the basis of this examination. Please correlate clinically, ad ditional evaluation with repeat endometrial biopsy and or hysteroscopy should be considered. DATA REPOSITORY:
[2022-01-23] MEDS: Normal Saline Flush 10 ML SYR IVP (14:52)
[2022-01-23] MEDS: Gadoterate meglumine 20 ML VIAL IVP (14:52)
== END ==
PROVIDERS: PCP Family Medicine; Visit Provider Obstetrics & Gynecology Gynecology
DX: R10.2 Pelvic and perineal pain (principal); Z92.0 Personal history of contraception; N85.8 Other specified noninflammatory disorders of uterus
CPT/HCPCS: 72197

== ENCOUNTER 2022-02-11 02:39 | Outpatient (CLI) | payer OTHER, SELFPAY ==
[2022-02-11 12:56] LABS: HGB 16.5 g/dL (11.2-15.7); MCH 29.7 pg (27.0-33.0); MCHC 33.7 % (32.0-36.0); MCV 88 fL (80-95); MPV 8.8 fL (8.0-11.0); Platelet Count 262 10^3/uL (130-400); RBC 5.55 10^6/uL (3.93-5.22); RDW 12.5 % (11.7-14.6); RDW-SD 40.7 fL; WBC 10.08 10^3/uL (4.4-10.8)
[2022-02-11 13:37] LABS: Anion Gap 8.9 mmol/L (3-11); BUN 13 mg/dL (7-18); CO2 29.1 mmol/L (21.0-32.0); CREATININE 0.7 mg/dL (0.55-1.02); Calcium 9.3 mg/dL (8.5-10.1); Chloride 100 mmol/L (98-107); Glucose 106 mg/dL (74-106); HCG Quant, Pregnancy < 1 mIU/mL (1-3); Potassium 3.8 mmol/L (3.5-5.1); Sodium 138 mmol/L (136-145)
== END 2022-02-11 02:40 | disposition home or self-care (01) ==
LOC: LBO 02:40
PROVIDERS: PCP Family Medicine; Visit Provider Obstetrics & Gynecology Gynecology
DX: N85.8 Other specified noninflammatory disorders of uterus (principal); R10.2 Pelvic and perineal pain; Z01.818 Encounter for other preprocedural examination; Z01.812 Encounter for preprocedural laboratory examination; R93.89 Abnormal findings on diagnostic imaging of other specified body structures
CPT/HCPCS: 36415; 80048; 85027; 84443; 84702

== ENCOUNTER 2022-02-12 19:32 | Outpatient (REF) | payer OTHER, SELFPAY ==
[2022-02-12 13:25] LABS: Source Nasal/Nares
[2022-02-13 01:20] LABS: COVID-19 PCR Negative (Negative)
== END 2022-02-12 19:33 | disposition home or self-care (01) ==
LOC: LBN 19:32
PROVIDERS: PCP Family Medicine; Visit Provider Obstetrics & Gynecology Gynecology
DX: Z20.822 Contact with and (suspected) exposure to COVID-19 (principal); Z01.818 Encounter for other preprocedural examination
CPT/HCPCS: 87635

== ENCOUNTER 2022-02-13 10:09 | Day surgery (SDC) | payer OTHER, SELFPAY ==
--- NOTE | 2022-02-07 09:53 | PDOC.ANES ---
Date of service: 02/07/22 Time of Service: 09:53 Anesthesia Note Report Anesthesia Note: Concern expressed to Ramy Mendez by patient regarding last anesthetic, patient reported feeling exceedingly tired. Reviewed chart and talked to patient today via phone call. We will avoid midazolam on her next visit.
[2022-02-13 10:21] VITALS: BP 116/76; PULSE 74; RESP 18; TEMP 36.5; O2SAT 96
[2022-02-13] MEDS: Lactated Ringers 1,000 ML 125 ML IV (10:42)
--- NOTE | 2022-02-13 11:28 | W.ANESPRE ---
General Info Date of Service Date Performed: 02/13/22 Height: 5 ft 2 in Weight: 89.4 kg Body Mass Index (BMI): 36.0 Surgical Procedure: Operation Date: 02/13/22 13:25 Proposed Procedure Side Surgeon p Hysteroscopy w/Possible Dilation & Curettage Sima Boucher MD Meds Allergies and Home Medications Allergies Allergy/AdvReac Type Severity Reaction Status Date / Time shellfish derived Allergy Intermediate Hives, Verified 02/13/22 10:31 Nausea,vomitting amoxicillin Allergy Skin Rash Verified 02/13/22 10:31 Environmental Allergy Intermediate Sneezing, Uncoded 02/13/22 10:31 watery eyes Home Medication Medication Instructions Recorded escitalopram oxalate 5 mg tablet 5 mg PO DAILY 10/26/21 (Lexapro) methylphenidate HCl 18 mg 18 mg PO DAILY PRN 01/18/22 tablet,extended release 24 hr multivitamin 1 tab PO DAILY 01/18/22 Current Visit Medications: Current Medications Generic Name Dose Route Start Last Admin Trade Name Freq PRN Reason Stop Dose Admin Ringer's Solution 1,000 mls @ 125 mls/hr 02/13/22 06:00 02/13/22 10:42 IV 03/14/22 23:59 125 mls/hr INFUSION GRISEL Administration IV Miscellaneous Supplies 1 each 02/13/22 06:00 Iv Access IV 03/14/22 23:59 DIRECTED GRISEL Sodium Chloride 0 ml 02/13/22 06:00 Normal Saline Flush 10 Ml Syr IV 03/14/22 23:59 PRN PRN Sodium Chloride 0 ml 02/13/22 06:00 Normal Saline 10 Ml Vial IJ 03/14/22 23:59 DIRECTED PRN Sterile Water 0 ml 02/13/22 06:00 Water,Injection,Sterile 10 Ml Vial IJ 03/14/22 23:59 DIRECTED PRN PFSH Active Problems Active Problems: Problem Status Onset Code Abnormal ultrasound of pelvis R93.89 Preoperative exam for gynecologic surgery Z01.818 Encounter for IUD removal Z30.432 Malpositioned IUD T83.32XA Reactive depression 10/20/17 F32.9 ADHD F90.9 Medical History Medical History Carpal tunnel syndrome of left wrist Carpal tunnel syndrome of right wrist KENNA II (cervical intraepithelial neoplasia II) 08/2018 colpo directed biopsies. 10/23/2018 LEEP: Squamous metaplasia, no dysplasia. 06/2020. LGSIL. Neg HPV. FHx: diabetes mellitus (06/28/16) for HgbA1C screening w/ next blood draw; pt to call and give a heads up Fracture of left ankle Headache 09/2017 Neg MRI. Rx with Mg and Compazine for prophylaxis. High blood pressure Migraine with aura and without status migrainosus, not intractable (10/21/17) Presence of IUD Kyleena placed 01/14/22 UTI (urinary tract infection) 1-2x/yr. Surgical History Surgical History H/O LEEP 10/23/2018. No dysplasia History of carpal tunnel surgery of left wrist History of Surgical Procedure a. Open reduction and internal fixation of bimalleolar ankle fracture left side. History of wisdom tooth extraction Hx of dilation and curettage Tobacco Smoking/Tobacco Use Status: Former Tobacco Use Alcohol Alcohol Intake: current Alcohol intake frequency: 0-2 drinks per day Alcohol type: wine Substance Use Substance use: Never Substance use type: does not use Prental History History 1 Para Hx # Term Pregnancies Multiple births Hx # Pregnancies Ectopic pregnancies AB induced Hx Number of Living Children AB spontaneous 1 Past Pregnancies Del. Date GA/Weeks # Preg Succ Route Wgt Sex Labor Lgth Anesthesia Location [facility] 10/26/[address] Donnelly Delivery Date: 10/26/21 Last Updated by: Reshma Donnelly MD MAB with D&C Vital Signs and Lab Results Vital Signs Most Recent Vital Signs in EMR: Most Recent Vital Signs Temp Pulse Resp BP Pulse Ox 36.5 C 74 18 116/76 96 02/13/22 10:21 02/13/22 10:21 02/13/22 10:21 02/13/22 10:21 02/13/22 10:21 Point of Care Results Point of Care Results: POC- Test(urine) Negative 02/13/22 10:50 Lab Results Blood Type / Crossmatch: No Data to Display Complete Blood Count: White Blood Count 10.08 10^3/uL (4.4-10.8) 02/11/22 12:52 Red Blood Count 5.55 10^6/uL (3.93-5.22) H 02/11/22 12:52 Hemoglobin 16.5 g/dL (11.2-15.7) H 02/11/22 12:52 Hematocrit 49.0 % (36.0-46.0) H 02/11/22 12:52 Platelet Count 262 10^3/uL (130-400) 02/11/22 12:52 Complete Metabolic Panel: Sodium Level 138 mmol/L (136-145) 02/11/22 12:52 Potassium Level 3.8 mmol/L (3.5-5.1) 02/11/22 12:52 Chloride Level 100 mmol/L (98-107) 02/11/22 12:52 Carbon Dioxide Level 29.1 mmol/L (21.0-32.0) 02/11/22 12:52 Blood Urea Nitrogen 13 mg/dL (7-18) 02/11/22 12:52 Creatinine 0.7 mg/dL (0.55-1.02) 02/11/22 12:52 Estimated GFR/1.73 m2 >= 60.00 (mL/min/1.73m2) 02/11/22 12:52 Calcium Level 9.3 mg/dL (8.5-10.1) 02/11/22 12:52 Glucose Level 106 mg/dL (74-106) 02/11/22 12:52 Liver Function Panel: No Data to Display Coagulation Panel: No Data to Display Cardiac Panel: No Data to Display Arterial Blood Gas: No Data to Display Venous Blood Gas: No Data to Display Pancreas Panel: No Data to Display Thyroid Panel: Thyroid Stimulating Hormone (TSH) 3.40 uIU/mL (0.36-3.74) 02/11/22 12:52 Infectious Disease: Coronavirus (COVID-19)(PCR) Negative (Negative) 02/12/22 09:39 Coronavirus 2019 Source Nasal/Nares 02/12/22 09:39 Blood Cultures: No Data to Display Toxicology Panel: No Data to Display Panel: Beta HCG, Quantitative < 1 mIU/mL (1-3) L 02/11/22 12:52 Anesthesia Assessment and Plan Anesthesia History Personal History: No History of Anesthesia Complications Family History: No Family History of Anesthesia Complications Exercise Tolerance Exercise Tolerance: Metabolic Equivalents>4 Pertinent Negatives Pertinent Negatives: No Symptoms of GERD, No Major Cardiovascular Symptoms or Complaints, No Major Pulmonary Symptoms or Complaints and No History of CVA/TIA Cardiac & Pulmonary Exam Cardiac Exam: Normal S1/S2 Heart Sounds Pulmonary Exam: Clear Bilateral Breath Sounds Implantable Cardiac Device Does patient have a Pacemaker or an ICD?: No Airway Exam Known Difficult Airway: No Mallampati Class: 3 Mouth Opening: Normal (> 3cm) Thyromental Distance: Greater than 3 cm Neck Range of Motion: Full ROM Neck Circumference: Normal Teeth Condition: Normal Dentition ASA Classification ASA Score: ASA 2 Emergency Case?: No NPO Status NPO Status: NPO Clears >2 hours, Solids >8 hours Status Status: Positive HCG (< 1, patient is here for D/C) and Other (Here for D/C. Lab HCG <1) Anesthesia Plan Resuscitation Status: Full Code Anesthesia Technique: General Anesthesia Airway Planned: Natural Airway Monitors Used: Standard Monitors
[2022-02-13 11:43] VITALS: BMI 36.0
[2022-02-13 12:59] VITALS: BP 113/57; PULSE 73; RESP 16; TEMP 36.6; O2SAT 98
--- NOTE | 2022-02-13 13:00 | ENDOMET_PTH ---
PATIENT: Sima Mann LOC: [facility] U#:[id number] AGE/SX: 36/F ROOM: RE02/13/[address]: Sima Boucher : 1985 BED: DIS: 02/13/2022 SPEC #: [id number] RECD: 02/13/22 16:07 STATUS: ELDON REJose Manuel #: [id number] FRANCISCA: 02/13/22 13:[address]: Sima Boucher DEPT: Surgical Specimen RECD BY: Amy Rangel ENTERED: 02/13/22 16:07 SP TYPE: Endomet OTHR DR: Juan Jones Tissues: 1 - ENDOMETRIUM BX/CURRETTE Procedures: GROSS AND MICRO LEVEL 4 Comments: [id number]
[2022-02-13] MEDS: Normal Saline Flush 10 ML SYR IV (13:17)
--- NOTE | 2022-02-13 13:19 | W.ANESPOSTOP ---
Postoperative Evaluation Date, Time and Location Date Performed: 02/13/22 Time Performed: 13:19 Patient Location: Day Surgery Unit Vital Signs Most Recent Imported Vital Signs: Most Recent Vital Signs Temp Pulse Resp BP Pulse Ox 36.6 C 73 16 113/57 L 98 02/13/22 12:59 02/13/22 12:59 02/13/22 12:59 02/13/22 12:59 02/13/22 12:59 Pain Score Most Recent Pain Score: Most Recent Pain Score Pain Level 0 02/13/22 10:21 Assessment Mental Status: Awake (Alert & Oriented to Patient Baseline) Airway and Respiratory Function: Patent airway with normal (patient baseline) respiratory exam Cardiovascular Function: Hemodynamically Stable Hydration Status: Adequately Hydrated Nausea & Vomiting: No Nausea or Vomiting Pain: Pain is tolerable per patient (Rates a 1/10) Peripheral Nerve Block: Patient did not receive a nerve block
--- NOTE | 2022-02-13 13:24 | W.PM.OP ---
Date of service: 02/13/22 Time of Service: 13:24 Operative Note Operative Note DATE OF PROCEDURE: 02/13/22 PRE-OP DIAGNOSIS: thickened endometrial stripe. POST-OP DIAGNOSIS: same PROCEDURE: hysteroscopy with myosure assisted endometrial curretage. Kyleena IUD insertion. SURGEON: Sima Boucher ASSISTING SURGEON: Eun Winter Refer to Anesthesia Record ESTIMATED BLOOD LOSS: 0 PATHOLOGY: other (endometrial currettings) COMPLICATIONS: None Patient was transported to: same day Patient's condition: stable Implants: Kyleena IUD inserted. Lot: [id number]. Exp: Indications: 36yo female with finding of thickened endometrium that was poorly characterized on pelvic ultrasound and MRI of pelvis. Pt has longstanding history of oligomenorrhea. Findings: Uterus sounded to 8cm. Generalized thickening of the endometrial lining with secretory appearing endometrium. No large intracavitary filling defects. Procedure Description: Patient was taken to the operating room where she was placed in the dorsal supine position and general anesthesia was administered without difficulty. IV Doxycycline was administered upon arrival in the OR. She was then placed in the dorsal lithotomy position in [facility] stirrups in a neurologically neutral position. She was then prepped, and draped in the usual sterile fashion. Surgical timeout was performed. [place] speculum was placed into the vagina and the anterior lip of the cervix was infiltrated with 0.5cc of 0.25% Marcaine without epinephrine. A single-tooth tenaculum was then used to grasp and hold the anterior lip of the cervix. A paracervical block was performed with 1 cc of quarter percent Marcaine injected into the 4 and 8:00 paracervical spaces respectively. The uterus was sounded to 8 cm. The cervix was then sequentially dilated to a maximum of 16 Alvarez and a Myosure hysteroscopy device was inserted into the uterine cavity with normal saline as the distension medium. The hysteroscope was attatched to the [employer] fluid managment system. The cavity was inspected with the above findings. A Myosure cutting blade was inserted into the uterine cavity and under direct visualization the endometrium was sampled in all quadrants. The cutting blade and the attatched hysteroscopy were removed from the uterine cavity and a polyp forceps was inserted into the uterine cavity and two samples were taken at the uterine fundus. The hysteroscope was then reinserted and the uterine cavity inspected and noted to be intact with no active bleeding. The hysteroscope was removed and all instruments removed from the vagina. The tenaculum site was hemostatic. Pt was placed in the dorsal supine position, awakened and transported to recovery area in stable condition. All sponge lap needle counts correct x2
[2022-02-13 13:28] VITALS: BP 124/68; PULSE 70; RESP 18; TEMP 36.6; O2SAT 100
--- NOTE | 2022-02-13 13:38 | PDOC.DSDIS_ITS ---
Discharge Plan Disposition Patient Disposition: HOME Condition: Good Discharge Details Reason For Visit: hysteroscopy with D&C Attending Provider: Sima Boucher Primary Care Provider: Juan Jones Home Meds and New Rx's Prescriptions: No Action methylphenidate HCl 18 mg tablet extended release 24hr 18 mg PO DAILY PRN multivitamin Tablet 1 tab PO DAILY escitalopram oxalate [Lexapro] 5 mg tablet 5 mg PO DAILY Discharge Instructions Additional Instructions: You will have cramping for 24 hours. Use Motrin 600 mg of [id number] Motrin/ibuprofen every 6 hours. You will have bleeding for the next 48 hours. The IUD string ends from the cervix into the vagina. You may place your finger in your vagina and feel for the string at any time. Cannot use tampons until all the bleeding is stopped. Stand Alone Forms: DSU Post CARBONATION TESTER Surgery Activity:: Activity as Tolerated Shower/Bathe:: 24 hours Diet:: As Tolerated Discharge Orders Discharge Orders: Discharge Order (Routine); Ordered 02/13/22 Ordered By: Sima Boucher
== END 2022-02-13 14:05 | disposition home or self-care (01) ==
PROVIDERS: PCP Family Medicine; Visit Provider Obstetrics & Gynecology Gynecology
PROC: 0UDB8ZZ Extraction of Endometrium, Via Natural or Artificial Opening Endoscopic (ICD-10-PCS; CPT 58558; principal; 2022-02-13 13:15)
DX: R93.89 Abnormal findings on diagnostic imaging of other specified body structures (principal); Z30.430 Encounter for insertion of intrauterine contraceptive device
CPT/HCPCS: 58558; 58300; 81025; 88305; J1885; J2405; J2704

== ENCOUNTER 2022-03-30 20:42 | Emergency (ER) | payer OTHER, SELFPAY ==
[2022-03-30 20:51] VITALS: BP 139/102; PULSE 81; RESP 20; TEMP 36.7; O2SAT 100
[2022-03-30] MEDS: Ketorolac 15 MG/ML VIAL IVP (21:16)
[2022-03-30] MEDS: diazePAM 10 MG/2 ML SYR 5 MG IV (21:16)
[2022-03-30] MEDS: HYDROmorphone 2 MG/ML VIAL 1 MG IVP ×2 (22:08→23:06)
[2022-03-30] MEDS: Normal Saline Flush 10 ML SYR (22:08)
[2022-03-30] MEDS: Ondansetron 4 MG/2 ML VIAL IVP (22:09)
--- NOTE | 2022-03-30 22:46 | ED.GENADUL_ITS ---
Discharge Plan Disposition Patient Disposition: HOME Condition: Improving Discharge Details Clinical Impression: Protrusion of lumbar intervertebral disc, Back pain Primary Care Provider: Juan Jones ED Provider: Marlyn Buregss Home Meds and New Rx's Prescriptions: New methocarbamol 500 mg tablet 500 mg PO Q6H PRN (Reason: muscle spasm) Qty: 14 0RF oxycodone 5 mg tablet 5 mg PO Q6H PRN (Reason: pain) Qty: 10 0RF prednisone 20 mg tablet See Rx Instructions .ROUTE .COMPLEX Qty: 18 0RF Rx Instructions: Take 3 tabs daily for 3 days, then 2 tabs daily for 3 days, then 1 tab daily for 3 days. Continued methylphenidate HCl 18 mg tablet extended release 24hr 18 mg PO DAILY PRN multivitamin Tablet 1 tab PO DAILY escitalopram oxalate [Lexapro] 5 mg tablet 5 mg PO DAILY ibuprofen 800 mg Tablet 800 mg PO TID PRN magnesium salicylate 325 mg Tablet 650 mg PO BID PRN Discharge Instructions Instructions: Lumbar Disc Herniation (ED), Back Pain (ED) Additional Instructions: Your CT scan today revealed a lumbar disc protrusion at L3-L4. An order for an outpatient lumbar spine MRI has been placed. Please call the radiology department on Friday morning to schedule an appointment for your lumbar spine MRI. Prescriptions for steroids, muscle relaxers and pain medication have been sent electronically to your pharmacy. You are being sent home with Phenergan to take as needed and directed for nausea or vomiting. Alternate ice and heat to the affected area(s) several times daily for 20 minutes at a time. Follow-up with your primary care doctor in 1 week. Return to the emergency department with any worsening or new concerning symptoms such as fever, abdominal pain, bowel or bladder incontinence, leg weakness or numbness, inability to ambulate or any other concerns. Stand Alone Forms: Physical Therapy Referral, Work Release Referrals: Juan Jones [Primary Care Provider] - Discharge Data Discharge Date/Time-TO BE ENTERED AT DEPARTURE: 03/31/22 01:46 Discharge Physician: Marlyn Burgess Medical Decision Making <JEFE Eli - Last Filed: 03/31/22 15:05> Patient received 2 mg of IV Dilaudid, Valium, Toradol and remains in discomfort No clinical evidence of cauda equina syndrome, neurologically intact on several different assessment throughout this encounter Suspect musculoskeletal etiology of pain I attempted to admit patient to the hospitalist service however hospitalist was requesting CT lumbar spine and p.o. trial and attempt to send patient home Will supply patient with Reglan as she is now nausea after IV analgesia, p.o. Valium, and p.o. Dilaudid at his request and she is pending CT scan at this time Will transition care to Dr Burgess pending ct and po medications <Marlyn Burgess, - Last Filed: 04/04/22 08:39> Amy Espino Patient received 2 mg of IV Dilaudid, Valium, Toradol and remains in discomfort No clinical evidence of cauda equina syndrome, neurologically intact on several different assessment throughout this encounter Suspect musculoskeletal etiology of pain I attempted to admit patient to the hospitalist service however hospitalist was requesting CT lumbar spine and p.o. trial and attempt to send patient home Will supply patient with Reglan as she is now nausea after IV analgesia, p.o. Valium, and p.o. Dilaudid at his request and she is pending CT scan at this time Will transition care to Dr Burgess pending ct and po medications. Dr. Burgess [id number] -- Please see JEFE Espino's note for initial presentation, exam and plan. Case endorsed to follow-up on patient response to additional oral medication and CT imaging. Patient declined to give urine sample and denies chance of . 0115 -- CT reviewed and notes: IMPRESSION: Large left paracentral disc protrusion at L3-L4 measuring 7 mm in AP dimension with moderate to severe left canal stenosis and likely mass effect on left L4 nerve root. Consider MRI for more detailed evaluation. Patient reassessed and she feels much better. She was able to ambulate around the room. She denies any cauda equina symptoms. She is neurovascularly intact. Patient feels comfortable going home. An order for outpatient lumbar spine MRI has been placed. Prescriptions for steroids, muscle relaxers and oxycodone sent electronically to her pharmacy. She requested antiemetic and was given Zofran bottle to go. Advised to follow up with the primary care doctor for re- evaluation. Usual and customary return precautions given prior to discharge. Medical Records Medical records reviewed: Yes I reviewed the patient's medical records. Imaging Data Radiologic Study: Radiologist's impression: CT Lumbar Spine Without Contrast Exam date and time: 03/30/2022 11:46 PM Age: 36 years old Clinical indication: Other: Back pain, intractable TECHNIQUE: Imaging protocol: Computed tomography of the lumbar spine without contrast. COMPARISON: MR PELVIS WO/W 01/23/2022 2:39 PM FINDINGS: Bones/joints: No acute fracture. Normal alignment. L1-L2: No evidence of disc protrusion or extrusion. No evidence of significant disc bulge. No canal stenosis. No neuroforaminal stenosis. L2-L3: No evidence of disc protrusion or extrusion. No evidence of significant disc bulge. No canal stenosis. No neuroforaminal stenosis. L3-L4: Left paracentral disc protrusion measuring 7 mm in AP dimension, 8 mm in transverse dimension. No definitive extruded component is seen. There is moderate to severe left canal stenosis with likely mass-effect on left L4 nerve root. L4-L5: Degenerative endplate changes are seen in inferior L4 level. 2-3 mm diffuse posterior bulge. No canal stenosis. No neural foraminal narrowing. L5-S1: Degenerative endplate sclerosis is seen at L5-S1 level with loss of disc height. No disc protrusion or extrusion. No canal stenosis. No neural foraminal narrowing. Soft tissues: Unremarkable. IMPRESSION: Large left paracentral disc protrusion at L3-L4 measuring 7 mm in AP dimension with moderate to severe left canal stenosis and likely mass effect on left L4 nerve root. Consider MRI for more detailed evaluation. HPI <JEFE Eli - Last Filed: 03/31/22 15:05> General Date/Time Provider Initiated Documentation: 03/30/22 20:47 . HPI Narrative: This 36-year-old female presents with acute exacerbation of chronic back pain. Patient denies any significant trauma to the affected area. She reports her back is bothering her all day today. She states that after vacuuming her back and abdomen she tried taking some ibuprofen and applying ice with specifically alleviates her symptoms, however this was unsuccessful. She denies any strength or sensation change. She denies chance of . She denies any weakness or changes in bowel or bladder. Related Data Home Medications Medication Instructions Recorded Confirmed escitalopram oxalate 5 mg tablet 5 mg PO DAILY 10/26/21 03/30/22 (Lexapro) methylphenidate HCl 18 mg 18 mg PO DAILY PRN 01/18/22 03/30/22 tablet,extended release 24 hr multivitamin 1 tab PO DAILY 01/18/22 03/30/22 ibuprofen 800 mg tablet 800 mg PO TID PRN 03/30/22 03/30/22 magnesium salicylate 325 mg tablet 650 mg PO BID PRN 03/30/22 03/30/22 methocarbamol 500 mg tablet 500 mg PO Q6H PRN muscle spasm #14 03/31/22 tabs oxycodone 5 mg tablet 5 mg PO Q6H PRN pain #10 tabs 03/31/22 prednisone 20 mg tablet See Rx Instructions .Route 03/31/22 .COMPLEX #18 tabs Previous Rx's Medication Instructions Recorded methocarbamol 500 mg tablet 500 mg PO Q6H PRN muscle spasm #14 03/31/22 tabs oxycodone 5 mg tablet 5 mg PO Q6H PRN pain #10 tabs 03/31/22 prednisone 20 mg tablet See Rx Instructions .Route 03/31/22 .COMPLEX #18 tabs Allergies Allergy/AdvReac Type Severity Reaction Status Date / Time shellfish derived Allergy Intermediate Hives, Verified 03/30/22 20:53 Nausea,vomitting amoxicillin Allergy Skin Rash Verified 03/30/22 20:53 Environmental Allergy Intermediate Sneezing, Uncoded 03/30/22 20:53 watery eyes General Stated Complaint: Nk/Back Pain LULU: 4 Review of Systems <JEFE Eli - Last Filed: 03/31/22 15:05> All systems reviewed & are unremarkable except as noted in HPI and below PFSH <JEFE Eli - Last Filed: 03/31/22 15:05> All Active Problems (Updated 03/31/22 @ 01:23 by Marlyn Burgess DO) Back pain (Acute) Protrusion of lumbar intervertebral disc (Acute) Abnormal ultrasound of pelvis (Acute) Preoperative exam for gynecologic surgery (Acute) Encounter for IUD removal (Acute) Malpositioned IUD (Acute) Reactive depression (Acute 10/20/17) ADHD (Acute) Medical History (Updated 03/31/22 @ 01:23 by Marlyn Burgess DO) Carpal tunnel syndrome of left wrist Carpal tunnel syndrome of right wrist KENNA II (cervical intraepithelial neoplasia II) 08/2018 colpo directed biopsies. 10/23/2018 LEEP: Squamous metaplasia, no dysplasia. 06/2020. LGSIL. Neg HPV. FHx: diabetes mellitus (06/28/16) for HgbA1C screening w/ next blood draw; pt to call and give a heads up Fracture of left ankle Headache 09/2017 Neg MRI. Rx with Mg and Compazine for prophylaxis. High blood pressure Migraine with aura and without status migrainosus, not intractable (10/21/17) Presence of IUD Kyleena placed 01/14/22 UTI (urinary tract infection) 1-2x/yr. Surgical History H/O LEEP 10/23/2018. No dysplasia History of carpal tunnel surgery of left wrist History of Surgical Procedure a. Open reduction and internal fixation of bimalleolar ankle fracture left side. History of wisdom tooth extraction Hx of dilation and curettage Social History Smoking/Tobacco Use Status: Former Tobacco Use Quit Date: 08/25/11 Tobacco: How many years used: 6 Smoking risk assessment performed?: Yes Alcohol Intake: current Alcohol Intake frequency: 0-2 drinks per day Alcohol type: wine Drug use: Never Substance use type: does not use Number of Children: 0 current occupation: Studying for masters in social work Seatbelt use: always Do you feel safe at home: Yes Do you feel safe in your relationship?: Yes Female Reproductive History Menstrual control method: progestin IUCD History History 1 Para Hx # Term Pregnancies Multiple births Hx # Pregnancies Ectopic pregnancies AB induced Hx Number of Living Children AB spontaneous 1 Past Pregnancies Del. Date GA/Weeks # Preg Succ Route Wgt Sex Labor Lgth Anesth esia Location Prov Complic 10/26/[address] Carrington ki Delivery Date: 10/26/21 Last Updated by: Reshma Donnelly MD MAB with D&C Exam <JEFE Eli - Last Filed: 03/31/22 15:05> Const General: cooperative, comfortable and no acute distress Orientation: alert and oriented x3 Eyes Pupils: PERRL Resp Effort & Inspection: normal respiratory effort Auscultation: clear to auscultation bilaterally Cardio Rate: regular rate Rhythm: regular rhythm GI Other: No abdominal bruit or pulsatile mass Back/Spine/Pelvis Other: mild paraspinal tenderness Skin General skin exam: no rashes or lesions noted Neuro General: patient alert and patient oriented x3 Sensory Exam: no sensory deficits noted Other: Discharge intact bilateral lower extremities, sensation and strength intact bilateral lower extremities, neurovascularly intact Course <JEFE Eli - Last Filed: 03/31/22 15:05> Vital Signs Vital signs: Vital Signs Temperature 36.7 C 03/30/22 20:51 Pulse 81 03/30/22 20:51 Respiratory Rate 20 03/30/22 20:51 Blood Pressure 139/102 H 03/30/22 20:51 Pulse Oximetry 100 03/30/22 20:51 Temperature 36.7 C 03/30/22 20:51 Temperature Source Temporal Artery Scan 03/30/22 20:51 Pulse 81 03/30/22 20:51 Respiratory Rate 20 03/30/22 20:51 Respiratory Effort Non-Labored 03/30/22 21:00 Blood Pressure 139/102 H 03/30/22 20:51 Blood Pressure Position Sitting 03/30/22 20:51 Pulse Oximetry 100 03/30/22 20:51 Oxygen Delivery Method Room Air 03/30/22 20:51 Oxygen Flow Rate 0 03/30/22 20:51 Pain Level 6 03/30/22 21:00 Sign Out <JEFE Eli - Last Filed: 03/31/22 15:05> Sign Out Data: Sign Out Comment: pending ct lumbar spine po meds, fluids and antiemetics Last updated by Amy Espino PA at 03/30/22 23:35
[2022-03-30] MEDS: predniSONE 20 MG TAB 40 MG PO (23:07)
--- NOTE | 2022-03-30 23:30 | DI.CT_ITS ---
Exam(s) CT LUMBAR SPINE WO EXAM: CT LUMBAR SPINE WO CLINICAL HISTORY: back pain, intractable. TECHNIQUE: Imaging Protocol: Axial computed tomography images with coronal and sagittal reformatted images were created and reviewed CONTRAST MATERIAL: Intravenous: Omnipaque 350 Contrast volume:structured data in ml Contrast route:I V - Oral: no COMPARISON: No exams were available for comparison FINDINGS: Bones: The last intervertebral disc space is designated the L5/S1 level for the numbering purpose of this examination. The vertebral body heights are well maintained. Alignment is satisfactory. No frac ture is seen. T12-L1: No disc herniations or bulges are present. L1-2: No disc herniations or bulges are present. L2-3: No disc herniations or bulges are present. L3-4: Left paracentral disc protrusion measuring 7 x 8 millimeters which appears to impinge on the l eft anterior aspect of the thecal sac and may contact the left L4 nerve root.. L4-5: Mild disc bulging. Endplate degenerative changes. L5-S1: Moderate narrowing of the disc space. Small endplate osteophytes. Mild disc bulging. There is no significant neural foraminal narrowing at any level. There are no significant facet join t degenerative changes. Soft Tissues: The visualized SI joints and sacrum are will maintained. The paraspinal soft tissues a re unremarkable. IMPRESSION: Left paracentral disc herniation at L3-4. Mild degenerative disc changes L4-5 and L5-S1 RADIATION DOSE DELIVERED: 547.48mGy.cm Total DLP DATA REPOSITORY: All CT scans at this facility are submitted to the National Radiology Data Registry (NRDR) Dose Index Registry (DIR) with the [employer] (ACR). RADIATION OPTIMIZATION: All CT scans at this facility use at least one of these dose optimization te chniques: automated exposure control; mA and/or kV adjustment per patient size (includes targeted exa ms where dose is matched to clinical indication); or iterative reconstruction.
[2022-03-30] MEDS: Normal Saline 1,000 ML 1000 ML IV (23:46)
[2022-03-30] MEDS: Metoclopramide 10 MG/2 ML VIAL IVP (23:46)
[2022-03-31] MEDS: HYDROmorphone 2 MG TAB PO (00:02)
[2022-03-31] MEDS: diazePAM 5 MG TAB PO (00:02)
--- NOTE | 2022-03-31 00:56 | DI.VRAD_ITS ---
PROCEDURE INFORMATION: Exam: CT Lumbar Spine Without Contrast Exam date and time: 03/30/2022 11:46 PM Age: 36 years old Clinical indication: Other: Back pain, intractable TECHNIQUE: Imaging protocol: Computed tomography of the lumbar spine without contrast. COMPARISON: MR PELVIS WO/W 01/23/2022 2:39 PM FINDINGS: Bones/joints: No acute fracture. Normal alignment. L1-L2: No evidence of disc protrusion or extrusion. No evidence of significant disc bulge. No canal stenosis. No neuroforaminal stenosis. L2-L3: No evidence of disc protrusion or extrusion. No evidence of significant disc bulge. No canal stenosis. No neuroforaminal stenosis. L3-L4: Left paracentral disc protrusion measuring 7 mm in AP dimension, 8 mm in transverse dimension. No definitive extruded component is seen. There is moderate to severe left canal stenosis with likely mass-effect on left L4 nerve root. L4-L5: Degenerative endplate changes are seen in inferior L4 level. 2-3 mm diffuse posterior bulge. No canal stenosis. No neural foraminal narrowing. L5-S1: Degenerative endplate sclerosis is seen at L5-S1 level with loss of disc height. No disc protrusion or extrusion. No canal stenosis. No neural foraminal narrowing. Soft tissues: Unremarkable. IMPRESSION: Large left paracentral disc protrusion at L3-L4 measuring 7 mm in AP dimension with moderate to severe left canal stenosis and likely mass effect on left L4 nerve root. Consider MRI for more detailed evaluation. Dictated and Authenticated by: Hilton Franklin MD. Ordering:ABRAHAM Reyes MD
[2022-03-31 01:05] VITALS: BP 114/50; PULSE 84; RESP 16; TEMP 36.5; O2SAT 100
[2022-03-31 01:30] VITALS: BP 114/50; PULSE 84; RESP 16; TEMP 36.5; O2SAT 100
== END 2022-03-31 01:46 | disposition home or self-care (01) ==
PROVIDERS: Emergency Provider Physician Assistant; PCP Family Medicine
DX: M51.26 Other intervertebral disc displacement, lumbar region (principal); I10 Essential (primary) hypertension; Z87.891 Personal history of nicotine dependence
CPT/HCPCS: 96361; 96374; 96375; 96376; 99284; 72131; J1885; J2405; J2765; J3360; J7512

== ENCOUNTER → 2022-04-01 09:16 | Outpatient (CLI) | payer OTHER, SELFPAY ==
--- NOTE | 2022-04-01 | DI.MRI_ITS ---
Exam(s) MR LUMBAR SPINE WO EXAM: MR LUMBAR SPINE WO CLINICAL HISTORY: LOW BACK PAIN, L3-[address] TECHNIQUE: Multiplanar multisequence MRI of the Lumbar spine was performed. COMPARISON: No exams were available for comparison FINDINGS: Conus medullaris is at normal level. There is no evidence of conus mass nor subjacent clumping of in trathecal nerve roots to suggest arachnoiditis. The distal thecal sac appears unremarkable.There is no evidence of Tarlov intrasacral cysts nor other significant findings within the sacral canal Bones:There are no fractures nor ominous osseous lesions in the lumbar vertebral bodies and visualize d sacrum. With respect to the individual levels... T12-L1: Unremarkable L1-2: Normal disc height and signal. No disc herniation nor central canal stenosis.No foraminal steno sis L2-3: Normal disc height. No disc herniation nor central canal stenosis.No foraminal stenosis.No face t arthropathy. L3-4: Normal disc height and signal. However, there is a prominent posterior central subligamentous disc herniation. This extends posteriorly 7 millimeters and is approximately 1.3 cm wide, indenting the anterior aspect of the thecal sac. In addition, this disc protrusion extends both cephalad and c audad 4 a distance of 5 millimeters behind the L3 and L4 vertebral bodies, respectively.The disc melba iation does not extend into the exiting neural foramina on either side and there is no foraminal sten osis on either side.There are mild degenerative facet joint changes. No prominent ligamentum flavum hypertrophy. L4-5: Mild disc space narrowing and decreased disc hydration signal. There are Modic type 2 sub endp late fatty marrow changes. Mild central annular bulging which contacts the anterior thecal sac but n o prominent disc herniation. Central canal dimensions are lower normal. There is mild annular bulgi ng into the exiting left neural foramen floor. However, no true foraminal stenosis evident on either side at this level. Mild degenerative changes in the left facet joint evident. Right facet joint u nremarkable. L5-S1: Significant decreased disc height and Modic type 2 sub endplate fatty marrow changes. There i s mild annular bulging at this level. Also posterolateral left mild posterior osteophytic ridging. This extends into the floor of the exiting left neural foramen but there is no true foraminal stenosi s on either side at this level. Mild facet joint degenerative changes are noted. Soft tissues: paraspinal soft tissues appear unremarkable. IMPRESSION: 1. The main finding here is a prominent central subligamentous disc herniation at L3-4 level which co mpresses the thecal sac, resulting in an element of central canal stenosis. This disc protrusion ext ends posteriorly 7 millimeters and is 13 millimeters wide. It extends both cephalad and caudad for d istance of 5 millimeters behind the L3 and L4 vertebral bodies, respectively. However, the disc melba iation does not extend into the exiting neural foramina which appear patent bilaterally. 2. Other lesser significant acute findings at L4-5 and L5-S1 levels. 3. No fractures nor ominous osseous lesions. DATA REPOSITORY:
== END ==
PROVIDERS: PCP Family Medicine; Visit Provider Physician Assistant
DX: M51.26 Other intervertebral disc displacement, lumbar region (principal)
CPT/HCPCS: 72148

== ENCOUNTER 2022-06-10 15:54 | Outpatient (REF) | payer OTHER, SELFPAY ==
[2022-06-10 19:15] LABS: Abs Immature Grans 0.04 10^3/uL (0.0-0.06); Absolute Basophil Count 0.06 10^3/uL (0.0-0.2); Absolute Eosinophil Count 0.16 10^3/uL (0.0-0.7); Absolute Lymphocyte Count 3.28 10^3/uL (1.2-3.4); Absolute Monocyte Count 0.64 10^3/uL (0.1-0.8); Basophils % 0.6; Eosinophils % 1.7; HCT 45.9 % (36.0-46.0); Immature Grans % 0.4; Lymphocytes % 34.2; MCH 31.3 pg (27.0-33.0); MCHC 34.9 % (32.0-36.0); MCV 90 fL (80-95); MPV 9.3 fL (8.0-11.0); Monocytes % 6.7; Neutrophils % 56.4; Platelet Count 279 10^3/uL (130-400); RBC 5.12 10^6/uL (3.93-5.22); RDW 12.3 % (11.7-14.6); RDW-SD 40.7 fL; WBC 9.58 10^3/uL (4.4-10.8)
[2022-06-12 10:02] LABS: Hepatitis C Ab w Rflx HCV PCR Negative (Negative)
== END 2022-06-10 15:55 | disposition home or self-care (01) ==
LOC: NCHCN 15:54
PROVIDERS: PCP Family Medicine; Visit Provider Family Medicine
DX: D75.1 Secondary polycythemia (principal); Z00.00 Encounter for general adult medical examination without abnormal findings; Z11.59 Encounter for screening for other viral diseases
CPT/HCPCS: 86803; 85025

== ENCOUNTER 2022-09-09 15:06 | Outpatient (REF) | payer BC, SELFPAY ==
--- NOTE | 2022-09-09 14:40 | ENDOMET_PTH ---
PATIENT: Sima Mann LOC: N U#:[id number] AGE/SX: 36/F ROOM: RE09/09/[address]: Sima Boucher : 1985 BED: DIS: 09/09/2022 SPEC #: [id number] RECD: 09/09/22 17:16 STATUS: ELDON REQ #: [id number] FRANCISCA: 09/09/22 14:[address]: Sima Boucher DEPT: Surgical Specimen RECD BY: Amy Rangel ENTERED: 09/09/22 17:16 SP TYPE: Endomet OTHR DR: Juan Jones Tissues: 1 - ENDOMETRIUM BX/JANELETTE Procedures: GROSS AND MICRO LEVEL 4 Comments: [id number]
--- NOTE | 2022-09-09 14:40 | PAPFT_PTH ---
PATIENT: Sima Mann LOC: [facility] U#:[id number] AGE/SX: 36/F ROOM: RE09/09/[address]: Sima Boucher : 1985 BED: DIS: 09/09/2022 SPEC #: [id number] RECD: 09/09/22 17:20 STATUS: ELDON REJose Manuel #: [id number] FRANCISCA: 09/09/22 14:[address]: Sima Boucher DEPT: [facility] Cytology RECD BY: Amy Rangel ENTERED: 09/09/22 17:20 SP TYPE: PAPFT OTHR DR: Juan Jones Tissues: 1 - CX/ENDOCX FOR PAP SMEARS Procedures: PAP THIN PREP/UVM Screening HPV DNA PROBE Comments: [id number]
== END 2022-09-09 15:07 | disposition home or self-care (01) ==
LOC: LBN 15:06
PROVIDERS: PCP Family Medicine; Visit Provider Obstetrics & Gynecology Gynecology
DX: Z12.4 Encounter for screening for malignant neoplasm of cervix (principal); N85.8 Other specified noninflammatory disorders of uterus; T38.5X5A Adverse effect of other estrogens and progestogens, initial encounter; Z11.51 Encounter for screening for human papillomavirus (HPV)
CPT/HCPCS: 88142; 88305; 87624

== ENCOUNTER 2023-03-20 11:19 | Outpatient (CLI) | payer BC, SELFPAY ==
[2023-03-21 19:28] LABS: Estradiol 95 pg/mL (See Note)
[2023-03-21 19:36] LABS: FSH 2.4 mIU/mL (See Note)
== END 2023-03-20 11:20 | disposition home or self-care (01) ==
LOC: LBO 11:19
PROVIDERS: PCP Family Medicine; Visit Provider Obstetrics & Gynecology Gynecology
DX: Z87.42 Personal history of other diseases of the female genital tract (principal)
CPT/HCPCS: 36415; 82670; 83001

== ENCOUNTER 2023-09-08 15:06 | Outpatient (REF) | payer OTHER, SELFPAY ==
[2023-09-08 17:52] LABS: HCT 46.6 % (36.0-46.0); HGB 15.6 g/dL (11.2-15.7); MCH 30.1 pg (27.0-33.0); MCHC 33.5 % (32.0-36.0); MCV 90 fL (80-95); MPV 9.8 fL (8.0-11.0); Platelet Count 274 10^3/uL (130-400); RBC 5.19 10^6/uL (3.93-5.22); RDW 12.8 % (11.7-14.6); RDW-SD 42.1 fL; WBC 9.83 10^3/uL (4.4-10.8)
[2023-09-08 18:20] LABS: BUN 12 mg/dL (7-18); CREATININE 0.7 mg/dL (0.55-1.02); Calcium 8.8 mg/dL (8.5-10.1); Calculated LDL 94 mg/dL (<100); Chloride 103 mmol/L (98-107); Cholesterol 170 mg/dL (<200); Estimated GFR 113.46 (mL/min/1.73m2); Ferritin 131 ng/mL (8-252); Glucose 109 mg/dL (74-106); HDL Cholesterol 44 mg/dL (40-60); Sodium 139 mmol/L (136-145); Triglyceride 163 mg/dL (<150)
[2023-09-08 18:50] LABS: Hemoglobin A1C 5.1 % (<5.7)
== END 2023-09-08 15:07 | disposition home or self-care (01) ==
LOC: NCHCN 15:06
PROVIDERS: PCP Family Medicine; Visit Provider Family Medicine
DX: Z00.00 Encounter for general adult medical examination without abnormal findings (principal); D75.1 Secondary polycythemia; R03.0 Elevated blood-pressure reading, without diagnosis of hypertension; R79.89 Other specified abnormal findings of blood chemistry; Z13.220 Encounter for screening for lipoid disorders; Z13.1 Encounter for screening for diabetes mellitus; Z83.49 Family history of other endocrine, nutritional and metabolic diseases
CPT/HCPCS: 80048; 80061; 85027; 82728; 83036

== ENCOUNTER 2024-03-14 16:46 | Emergency (ER) | payer OTHER, SELFPAY ==
[2024-03-14] VITALS (18 sets, daily range): BP systolic 101–147; BP diastolic 54–84; PULSE 70–90; RESP 12–19; TEMP 36.3–36.7; O2SAT 94–99
--- NOTE | 2024-03-14 16:45 | RT.EKG_ITS ---
APPROVED REPORT Exam: Resting ECG Reason for Exam: Chest pain Patient Location: E HR:87 bpm ECG Measurements Heart Rate 87 AXIS MO 164 P 22 QRSd 77 QRS -3 QT 358 T 45 QTc 430 Conclusion Sinus rhythm 87 normal axis no stemi
--- NOTE | 2024-03-14 17:00 | DI.RAD_ITS ---
Exam(s) XR PORTABLE CHEST AP EXAM: XR PORTABLE CHEST AP CLINICAL HISTORY: CHEST PAIN. TECHNIQUE: 2D digital imaging was performed. COMPARISON: No exams were available for comparison FINDINGS: Single AP portable view. Heart size is upper normal. The mediastinum is not widened. Lungs are clear. No infiltrates nor obvious pleural effusions. IMPRESSION: No acute pulmonary findings on this single AP portable view of the chest. DATA REPOSITORY: RADIATION DOSE DELIVERED:
[2024-03-14 17:13] LABS: Abs Immature Grans 0.09 10^3/uL (0.0-0.06); Absolute Basophil Count 0.07 10^3/uL (0.0-0.2); Absolute Eosinophil Count 0.23 10^3/uL (0.0-0.7); Absolute Neutrophil Count 9.45 10^3/uL (1.2-6.7); Basophils % 0.5 %; Eosinophils % 1.6 %; HCT 48.6 % (36.0-46.0); HGB 16.5 g/dL (11.2-15.7); Immature Grans % 0.6 %; Lymphocytes % 24.5 %; MCH 30.3 pg (27.0-33.0); MCV 89 fL (80-95); MPV 8.7 fL (8.0-11.0); Monocytes % 8.4 %; Neutrophils % 64.4 %; Platelet Count 286 10^3/uL (130-400); RBC 5.44 10^6/uL (3.93-5.22); RDW 13.1 % (11.7-14.6); RDW-SD 42.4 fL; WBC 14.68 10^3/uL (4.4-10.8)
[2024-03-14 17:15] LABS: Absolute Monocyte Count 1.23 10^3/uL (0.1-0.8)
[2024-03-14] MEDS: Normal Saline 1,000 ML 1000 ML IV (17:39)
[2024-03-14] MEDS: Ondansetron 4 MG/2 ML VIAL IVP (17:39)
[2024-03-14] MEDS: Aspirin 81 MG CHEW 324 MG CH (17:39)
[2024-03-14] MEDS: nitroGLYcerin 0.4 MG TAB SL (17:40)
[2024-03-14 17:43] LABS: ALT 34 U/L (14-59); AST 16 U/L (15-37); Albumin 4.1 g/dL (3.4-5.0); Alkaline Phosphatase 80 U/L (46-116); Anion Gap 9.9 mmol/L (3-11); BUN 11 mg/dL (7-18); Bilirubin, Total 0.29 mg/dL (0.2-1.0); CO2 32.1 mmol/L (21.0-32.0); CREATININE 0.8 mg/dL (0.55-1.02); Calcium 9.4 mg/dL (8.5-10.1); Chloride 101 mmol/L (98-107); Estimated GFR 96.06 (mL/min/1.73m2); Glucose 115 mg/dL (74-106); Magnesium 2.2 mg/dL (1.8-2.4); NT-proBNP 10 pg/mL (<300); Potassium 3.9 mmol/L (3.5-5.1); Sodium 143 mmol/L (136-145); Total Protein 7.7 g/dL (6.4-8.2); Troponin I < 50 ng/L (< or =60)
--- NOTE | 2024-03-14 17:45 | RT.EKG_ITS ---
APPROVED REPORT Exam: Resting ECG Reason for Exam: continued chest pain Patient Location: E HR:76 bpm ECG Measurements Heart Rate 76 AXIS DC 186 P 43 QRSd 86 QRS 55 QT 383 T -35 QTc 431 Conclusion Sinus rhythm. 76 normal axis no stemi
[2024-03-14 17:48] LABS: D-Dimer 204 ng/mlFEU (<500)
--- OUTSIDE RECORDS SUMMARY | 2024-03-14 18:11 | XMS_ITS | Encounter Summary ---
Author Organization [facility] Address [address] [place] [address] Care Team Providers Care Rigging Worker Name Role Phone Fanta Keane MD Primary Care Provider [phone] Encounter Details Date Type Department Care Team (Late st Contact Info) Description 02/13/2022 Lab Requisition [facility] Pathology & Laboratory Medicine - [address] [address] Sima Diaz MD [address] [place] [address],[address] [address] Encounter for other general examination Social History Tobacco Use Types Packs/Day Years Used Date Smoking Tobacco: Never Assessed Interpersonal Safety Answer Date Record ed Physically Hurt Never 03/26/2020 Verbally Threaten Not on file 03/26/2020 Sex and Gender Information Value Date Recorded Sex Assigned at Not on file Gender Identity Not on file Sexual Orientation Not on file documented as of this encounter Plan of Treatment Not on file documented as of this encounter Procedures Procedure Name Priority Date/Time Associated Diagnosis Comments SURGICAL PATHOLOGY Today 02/13/2022 13 :00 EDT Encounter for other general examination documented in this encounter Results * SURGICAL PATHOLOGY (02/13/2022 13:00 EDT) Note to Patient The following pathology results have been interpreted by your pathologist and may be available to you before your health provider has had the opportunity to review them. Please allow time for your provider to receive these results and explore management options, if applicable. 02/21/2022 11:20 [facility] Final Diagnosis A. ENDOMETRIUM, CURETTAGE: - Retained products of conception (chorionic villi) - Proliferative endometrium with acute and chronic endometritis - Myometrium with acute and chronic inflammation 02/21/2022 11:20 [facility] Diagnosis Comment Despatch Clerk slides of this case were reviewed at the intradepartmental consultation conference. 02/21/2022 11:20 [facility] Attestation By the signature below, the attending physician certifies that they have 1) personally conducted a gross and/or microscopic examination of the described specimen(s), and/or personally interpreted the results of laboratory testing of the described specimen(s), and 2) personally rendered or confirmed the above diagnosis. 02/21/2022 11:20 [facility] at 1120 Clinical History Thickened endometrial lining; oligomenorrhea 02/21/2022 11:20 [facility] Gross Description A. Received in formalin labelled with proper patient identification (initials B, A) and not otherwise specified is an aggregate of rubbery wilkinson-le tissue with minimal admixed blood clot, 3.0 x 2.0 x 2.0 cm. Entirely submitted in A1-A6. JEFE FREGOSO(ASCP) 02/14/2022 14:13 02/21/2022 11:20 [facility] Performing Lab [facility] 02/21/2022 11:20 [facility] Scanned Images 02/21/2022 11:20 [facility] Tissue ENTIRE ENDOMETRIUM / Unknown 02/13/2022 13:00 EDT 02/13/2022 23:44 EDT Sima Diaz MD PATHOLOGY ORDERABLES [facility] [address] [place] [address] documented in this encounter Visit Diagnoses Diagnosis Encounter for other general examination documented in this encounter Care Teams Rigging Worker Relationship Specialty Start Date End Date Fanta Keane MD [address] [place] [phone] PCP - General 11/03/17 documented as of this encounter
--- OUTSIDE RECORDS SUMMARY | 2024-03-14 18:11 | XMS_ITS | Encounter Summary ---
Author Organization [facility] Address [address] [place] [address] Care Team Providers Care Rivet Heater Gas Name Role Phone Fanta Villagomez MD Primary Care Provider [phone] Encounter Details Date Type Department Care Team (Late st Contact Info) Description 09/01/2018 Results Only [facility] [phone] Zoe Franco MD [facility] [place], [place] [id number] Social History Tobacco Use Types Packs/Day Years Used Date Smoking Tobacco: Never Assessed Sex and Gender Information Value Date Recorded Sex Assigned at Not on file Gender Identity Not on file Sexual Orientation Not on file documented as of this encounter Plan of Treatment Not on file documented as of this encounter Procedures Procedure Name Priority Date/Time Associated Diagnosis Comments SURGICAL PATHOLOGY Routine 09/01/2018 8:24 EST documented in this encounter Results * SURGICAL PATHOLOGY (09/01/2018 8:24 EST) Pathology Report: SURGICAL PATHOLOGY REPORT Reports generated via electronic interface contain original data; however they are lacking the format of the original report. Caution should be taken when reading/interpreting unformatted reports. Name: ? ZOE MANN ? Accession #: ? [id number] ? : ? 1985 (Age: 32) ??F ? Collect Date: ? 09/01/2018 ? Location: ? [facility] ? Receive Date: ? 09/01/2018 ? Provider: ZOE FRANCO MD Copy to: FANTA VILLAGOMEZ MD ? Final Pathologic Diagnosis: A. ??endocervix, curettage: - ??Detached fragment of high grade squamous intraepithelial lesion. See comment. B. ??cervix 6 o'clock, biopsy: - ??Detached fragment of high grade squamous intraepithelial lesion. See comment. Comment: In both part A and B there is a small piece of detached squamous epithelium with a high grade squamous intraepithelial lesion. The small detached nature of the specimens precludes definitive grading however, KENNA II is favored. Deeper sections of block A and B have been examined. Steam Box Operator slides of this case were reviewed at intradepartmental consultation conference. ?? Immunoperoxidase staining was performed on part A to confirm the high grade squamous intraepithelial lesion and exclude atypical squamous metaplasia. The staining pattern is consistent with a high grade squamous intraepithelial lesion. ? ANTIBODY(CLONE)(BLOC K):RESULT P16 (E6H4TM, [place]) (block 1): positive; nuclear and cytoplasmic in a block like pattern MIB-1 (Ki67) (K2, Leica) (block 1): increased in a high grade pattern ? NOTE: ??One or more of the reagents used in immunoperoxidase testing in this case may not have been cleared or approved by the U.S. Food and Drug Administration (FDA). ??The FDA has determined that such clearance or approval is not necessary. ??These tests are used for clinical purposes. ??They should not be regarded as investigational or for research. ??These reagents' performance characteristics have been determined by the [facility] and/or by the referring laboratory. ??The positive and negative controls worked appropriately. ??If immunoperoxidase staining has been performed on alcohol fixed cytology specimens, which has not been fully validated, the assays should be interpreted with caution and correlated with clinical data. ??This laboratory is certified under the Clinical Laboratory Improvement Amendments of 1988 (CLIA-88) as qualified to perform high complexity clinical laboratory testing. ?? Document reviewed and electronically signed by: MARCELO SHETTY MD Report ??Date: 09/08/2018 09:16 By the signature above, the attending physician certifies that he/she has personally conducted a gross and/or microscopic examination of the described specimens and rendered or confirmed the above diagnosis. Specimen(s) Received: A. ??ECC B. ??6 o'clock Clinical History: ASCUS (+) HPV Gross Description: A. ?Received in formalin labelled with proper patient identification (initials B, A) and Endo CX curettage is an aggregate of clear, opaque, and blood-tinged mucus, 1.0 x 1.0 x 0.3 cm. Entirely submitted in A1. B. ?Received in formalin labelled with proper patient identification (initials B, A) and 6 o'clock is a wilkinson-le tissue, 0.2 x 0.1 x 0.1 cm. Entirely submitted in B1. JEFE Briggs (ASCP) 09/02/2018 9:06 AM End of Report [facility] 09/01/2018 8:24 EST 09/01/2018 8:24 EST Zoe Franco MD PATHOLOGY ORDERABLES Performing Organization Address City/State/[facility] Co de Phone Number [facility] [address] [place] [address] documented in this encounter Visit Diagnoses Not on filedocumented in this encounter Care Teams Rivet Heater Gas Relationship Specialty Start Date End Date Fanta Villagomez MD [address] [place] [phone] PCP - General 11/03/17 documented as of this encounter
--- OUTSIDE RECORDS SUMMARY | 2024-03-14 18:11 | XMS_ITS | Encounter Summary ---
Author Organization [facility] Address [address] [place] [address] Care Team Providers Care Chief Of Service Name Role Phone Unknown, Provider Primary Care Provider [phone] Encounter Details Date Type Department Care Team (Late st Contact Info) Description 04/18/2016 Results Only [facility] [phone] Ghulam Murillo MD [address] [place] [address] Social History Tobacco Use Types Packs/Day Years Used Date Smoking Tobacco: Never Assessed Sex and Gender Information Value Date Recorded Sex Assigned at Not on file Gender Identity Not on file Sexual Orientation Not on file documented as of this encounter Plan of Treatment Not on file documented as of this encounter Procedures Procedure Name Priority Date/Time Associated Diagnosis Comments PAP TEST- RESULT ONLY Routine 04/18/2016 0:00 EDT documented in this encounter Results * PAP TEST- RESULT ONLY (04/18/2016 0:00 EDT) Pathology Report: CYTOPATHOLOGY REPORT Reports generated via electronic interface contain original data; however they are lacking the format of the original report. Caution should be taken when reading/interpreti ng unformatted reports. Name: ? ZOE MANN ? Accession #: ? [id number] ? : ? 1985 (Age: 30) ??F ?Collect Date: ? 04/18/2016 ? Location: ? [facility] ? Receive Date: ? 04/19/2016 ? Provider: GHULAM MURILLO MD Copy to: BELINDA VILLAGOMEZ MD ? Final Report SPECIMEN ADEQUACY ? Satisfactory for Evaluation - transformation zone component present GENERAL CATEGORIZATION ? Negative for Intraepithelial Lesion or Malignancy ?? Previous Gynecologic Pathology: Yes: last PAP 2011 KENNA I: neg h/o 2008 Specimen/Source: ??Pap Test, Cervix/Endocervix, ThinPrep Imaging System with manual evaluation Document reviewed and electronically signed by: ? Clay Chandra, MADALYN(ASCP) ? Report ??Date: 04/24/2016 14:18 HPV with Pap Test ? Date Ordered: ? 04/23/2016 ? Status: ?? Signed Out ?Date Complete: ? 04/26/2016 ? By: ??System Interface ? Date Reported: ? 04/26/2016 ? Interpretation RESULT: Positive for high or intermediate risk HPV. E6 OR E7 mRNA from one or more types of HPV types 16,18,31, 33,35,39,45,51,52, 56,58,59,66, and 68 is detected by engineering lecturer mediated amplification. High and intermediate risk HPV types are associated with most squamous intraepithelial lesions and cervical cancers. Comments Document reviewed and electronically signed by: ? System Interface ? Report date: 04/26/2016 By the signature above, the attending physician certifies that he/she has personally conducted a gross and/or microscopic examination of the described specimens and rendered or confirmed the above diagnosis. End of Report [facility] 04/18/2016 04/19/2016 Ghulam Murillo MD PATHOLOGY ORDERABLES [facility] [address] [place], [place] [id number] documented in this encounter Visit Diagnoses Not on filedocumented in this encounter Care Teams Chief Of Service Relationship Specialty Start Date End Date Unknown, Provider, PCP - General 06/28/09 11/02/17 documented as of this encounter
--- OUTSIDE RECORDS SUMMARY | 2024-03-14 18:11 | XMS_ITS | Encounter Summary ---
Author Organization [facility] Address [address] [place] [address] Care Team Providers Care Actor Understudy Name Role Phone Fanta Keane MD Primary Care Provider [phone] Encounter Details Date Type Department Care Team (Late st Contact Info) Description 07/04/2021 Lab Requisition [facility] Pathology & Laboratory Medicine - [address] [address] Outr Resulting Lab, Provider Social History Tobacco Use Types Packs/Day Years [...] Procedure Name Priority Date/Time Associated Diagnosis Comments ZZCOVID-19 TEST [facility] PCR Today 07/04/2021 11:45 EST COVID-19 TESTING Routine 07/04/2021 11:4 5 EST documented in this encounter Results * COVID-19 TEST [facility] PCR (07/04/2021 11:45 EST) Swab 07/04/2021 11:4 5 EST 07/04/2021 22:57 EST Provider Outr Resulting Lab MICROBIOLOGY - GENERAL ORDERABLES [facility] [address] [place] [address] * COVID-19 TESTING (07/04/2021 11:45 EST) COVID-19 rt-PCR Result Negative Negative 07/05/2021 2:01 EST [facility] Comment: This test has not been FDA cleared or approved. This test has been authorized by FDA under an EUA for use by authorized laboratories. This test has been authorized only for detection of nucleic acid from 2019-nCoV, not for any other viruses or pathogens. This test is only authorized for the duration of the declaration that circumstances exist justifying the authorization of emergency use of in vitro diagnostic tests for detection and/or diagnosis of 2019-nCoV under section 564(b)(1) of Act, 21 U.S.C ?? 360bbb-3(b) (1), unless the authorization is terminated or revoked sooner. Negative results do not preclude 2019-nCoV infection and should not be used as the sole basis for treatment or other patient management decisions. Negative results must be combined with clinical observations, patient history, and epidemiological information. Performed on the [employer] Fusion instrument Performing Lab [place] [facility] Lab 07/05/2021 2:01 EST [facility] Swab 07/04/2021 11:4 5 EST 07/04/2021 22:57 EST Provider Outr Resulting Lab MICROBIOLOGY - GENERAL ORDERABLES [facility] [address] [place] [address] documented in this encounter Visit Diagnoses Not on filedocumented in this encounter Additional Health Concerns Infection Onset Date Last Indicated Resolved Time COVID-19 07/11/2021 07/11/2021 07/31/2021 22:1 5 EST documented as of this encounter Care Teams Actor Understudy Relationship Specialty Start Date End Date Fanta Keane MD [address] [place] [phone] PCP - General 11/03/17 documented as of this encounter
--- OUTSIDE RECORDS SUMMARY | 2024-03-14 18:11 | XMS_ITS | Encounter Summary ---
Author Organization [facility] Address [address] [place] [address] Care Team Providers Care Flexible Nanny Name Role Phone Unknown, Provider Primary Care Provider [phone] Encounter Details Date Type Department Care Team (Late st Contact Info) Description 10/29/2010 Results Only [facility] Services - [facility] ([facility]) [address] [place], [place] [id number] [place] Benjamin, [facility] [address] [place] [address] [place] [address] Social History Tobacco Use Types Packs/Day Years Used Date Smoking Tobacco: Never Assessed Sex and Gender Information Value Date Recorded Sex Assigned at Not on file Gender Identity Not on file Sexual Orientation Not on file documented as of this encounter Plan of Treatment Not on file documented as of this encounter Procedures Procedure Name Priority Date/Time Associated Diagnosis Comments CYTOPATHOLOGY Routine 10/29/2010 0:00 EST documented in this encounter Results * CYTOPATHOLOGY (10/29/2010 0:00 EST) Pathology Report: CYTOPATHOLOGY REPORT ? Reports generated via electronic interface contain original data; ? however they are lacking the format of the original report. ? Caution should be taken when reading/interpreti ng unformatted reports. ? Name: ? ZOE MANN ? Accession #: ? [id number] ? : ? 1985 (Age: 25) ??F ?Collect Date: ? 10/29/2010 ? Location: ? [facility] ? Receive Date: ? 10/31/2010 ? Provider: ?LA SAROJ STRAIGHTEDGE MACHINE OPERATOR HELPER ? Copy to: ? Specimen/Source: ?Pap Test, Cervix/Endocervix, ThinPrep Imaging System ? with manual evaluation ? Last Menstrual Period: ? 10/22/2010 ? Hormonal/Contracep tive Status: ? Oral contraceptives ? Previous Gynecologic Pathology: ? KENNA I: 07/31/2009 ? ASC-US ? Other: ? Additional clinical information: Neg HPV ? SPECIMEN ADEQUACY ? Satisfactory for Evaluation ? - transformation zone component present ? GENERAL CATEGORIZATION ? Negative for Intraepithelial Lesion or Malignancy ? INTERPRETATION ? Reactive cellular changes associated with inflammation present (includes ?? repair). ? Document reviewed and electronically signed by: ? BRENDA MOUNT MD ? Report Date: ??11/02/2010 17:12 ? End of Report ? DEEPAK MORENO 10/29/2010 10/31/2010 [place] STRAIGHTEDGE MACHINE OPERATOR HELPER PATHOLOGY ORDERABLES Performing Organization Address City/State/[facility] Co de Phone Number DEEPAK MORENO [address] [place] [address] documented in this encounter Visit Diagnoses Not on filedocumented in this encounter Care Teams Flexible Nanny Relationship Specialty Start Date End Date Unknown, Provider, PCP - General 06/28/09 11/02/17 documented as of this encounter
--- OUTSIDE RECORDS SUMMARY | 2024-03-14 18:11 | XMS_ITS | Encounter Summary ---
Author Organization [facility] Address [address] [place] [address] Care Team Providers Care Analytical Laboratory Technician Name Role Phone Fanta Keane MD Primary Care Provider [phone] Encounter Details Date Type Department Care Team (Late st Contact Info) Description 03/20/2023 Lab Requisition [facility] Pathology & Laboratory Medicine - [address] [id number] Outr Resulting Lab, Provider Social History Tobacco [...] Procedure Name Priority Date/Time Associated Diagnosis Comments ESTRADIOL, ADULTS Routine 03/20/2023 16: 05 EDT FSH Routine 03/20/2023 16:05 EDT documented in this encounter Results * FSH (03/20/2023 16:05 EDT) FSH 2.4 See Note mIU/mL 03/21/2023 19:32 EDT [facility] Blood VENOUS BLOOD / Unknown 03/20/2023 16:05 EDT 03/21/2023 17:36 EDT Narrative [facility] - 03/21/2023 19:32 EDT NOTE: Female FSH Reference Ranges (Menstruating): PHYSIOLOGICAL STATUS ? REFERENCE RANGE ? Follicular (-12 to -4 days): ?? 2.5 - 10.2 mIU/mL Midcycle (-3 to +2 days): ?3.4 - 33.4 mIU/mL Luteal (+4 to +12 days): ? 1.5 - 9.1 mIU/mL Postmenopausal: ?23.0 - 116.3 mIU/mL Reference Ranges for pediatric non-menstruating female patients have not been established. Provider Outr Resulting Lab CHEMISTRY & BLOOD GAS ORDERABLES Performing Organization Address [facility] Co de Phone Number [facility] [address] [place] [address] * ESTRADIOL, ADULTS (03/20/2023 16:05 EDT) [facility] Signature Estradiol 95 See Note pg/mL 03/21/2023 19:24 EDT [facility] Comment: NOTE: FEMALE REFERENCE RANGES: MENSTRUATING ? By cycle day relative to LH peak Follicular ?(-12 to -4 days) ??20-144 pg/mL Midcycle ?(-3 to +2 days) ?? 64-357 pg/mL Luteal ?(+4 t0 +12 days) ??56-214 pg/mL POSTMENOPAUSAL ?<32 pg/mL *Cross reactivity with Fulvestrant could lead to a falsely elevated estradiol result in patients treated with this drug. Blood VENOUS BLOOD / Unknown 03/20/2023 16:05 EDT 03/21/2023 17:36 EDT Provider Outr Resulting Lab CHEMISTRY & BLOOD GAS ORDERABLES Performing Organization Address [facility] Co de Phone Number [facility] [address] [place] [address] documented in this encounter Visit Diagnoses Not on filedocumented in this encounter Care Teams Analytical Laboratory Technician Relationship Specialty Start Date End Date Fanta Keane MD [address] [place] [phone] PCP - General 11/03/17 documented as of this encounter
--- OUTSIDE RECORDS SUMMARY | 2024-03-14 18:11 | XMS_ITS | Encounter Summary ---
Author Organization [facility] Address [address] [place] [address] Care Team Providers Care Rubber Flap Cutter Name Role Phone Fanta Keane MD Primary Care Provider [phone] Encounter Details Date Type Department Care Team (Latest Contact Info) Description 10/23/2018 18:00 EST - 10/23/2018 23:59 EST Hospital Encounter [address] [address] Unknown, Provider, Discharge Disposition: Home or Self Care Social History Tobacco Use Types Packs/Day Years Used Date Smoking Tobacco: Never Assessed Sex and Gender Information Value Date Recorded Sex Assigned at Not on file Gender Identity Not on file Sexual Orientation Not on file documented as of this encounter Discharge Disposition Disposition Code Departure Means Destination Home or Self Jail documented in this encounter Plan of Treatment Not on file documented as of this encounter Visit Diagnoses Not on filedocumented in this encounter Care Teams Rubber Flap Cutter Relationship Specialty Start Date End Date Fanta Keane MD [address] [place] [phone] PCP - General 11/03/17 documented as of this encounter
--- OUTSIDE RECORDS SUMMARY | 2024-03-14 18:11 | XMS_ITS | Encounter Summary ---
Author Organization [facility] Address [address] [place] [address] Care Team Providers Care Molding Room Supervisor Name Role Phone Unknown, Provider Primary Care Provider [phone] Encounter Details Date Type Department Care Team (Late st Contact Info) Description 10/20/2017 Results Only [facility] [phone] Zoe Franco MD [facility] [place], [place] [phone] Social History Tobacco Use Types Packs/Day Years [...] Diagnosis Comments PAP TEST- RESULT ONLY Routine 10/20/2017 0:00 EST documented in this encounter Results * PAP TEST- RESULT ONLY (10/20/2017 0:00 EST) Pathology Report: CYTOPATHOLOGY REPORT Reports generated via electronic interface contain original data; however they are lacking the format of the original report. Caution should be taken when reading/interpreti ng unformatted reports. Name: ? ZOE MANN ? Accession #: ? [id number] ? : ? 1985 (Age: 32) ??F ?Collect Date: ? 10/20/2017 ? Location: ? [facility] ? Receive Date: ? 10/21/2017 ? Provider: ZOE FRANCO MD Copy to: LINA BOWMAN MD ? Final Report SPECIMEN ADEQUACY ? Satisfactory for Evaluation - transformation zone component present GENERAL CATEGORIZATION ? Epithelial Cell Abnormality INTERPRETATION ? Squamous Cell Abnormality - Atypical squamous cells, undetermined significance (ASC-US). EDUCATIONAL NOTES/RECOMMENDATI ONS ? [facility] recommends following ASCCP's 2012 Updated Consensus Guidelines for the Management of Abnormal Cervical Cancer Screening Tests and Cancer Precursors (JLGTD, 2013; 17(5):S1-S27). ??Consensus guidelines are available online at www.asccp.org. Hormonal/Contracep tive status: Intrauterine device: Mirena Infection History: Pos for HRHPV: 2016 Specimen/Source: ??Pap Test, Cervix, ThinPrep Imaging System with manual evaluation Document reviewed and electronically signed by: ? JN CELAYA MD ? Report ??Date: 10/31/2017 13:18 HPV with Pap Test ? Date Ordered: ? 10/31/2017 ? Status: ?? Signed Out ?Date Complete: ? 11/03/2017 ? By: ??System Interface ? Date Reported: ? 11/03/2017 ? Interpretation RESULT: POSITIVE FOR HIGH OR INTERMEDIATE RISK HPV. E6 OR E7 mRNA from one or more types of HPV types 16,18,31, 33,35,39,45,51,52, 56,58,59,66, and 68 is detected by retail sales associate mediated amplification. High and intermediate risk HPV types are associated with most squamous intraepithelial lesions and cervical cancers. Comments Document reviewed and electronically signed by: ? System Interface ? Report date: 11/03/2017 By the signature above, the attending physician certifies that he/she has personally conducted a gross and/or microscopic examination of the described specimens and rendered or confirmed the above diagnosis. End of Report [facility] 10/20/2017 10/21/2017 Zoe Franco MD PATHOLOGY ORDERABLES [facility] [address] [place] [address] documented in this encounter Visit Diagnoses Not on filedocumented in this encounter Care Teams Molding Room Supervisor Relationship Specialty Start Date End Date Unknown, Provider, PCP - General 06/28/09 11/02/17 documented as of this encounter
--- OUTSIDE RECORDS SUMMARY | 2024-03-14 18:11 | XMS_ITS | Clinical Summary ---
Author Organization [facility] Address [address] [place] [address] Care Team Providers Care Labor Relations Consultant Name Role Phone Fanta Keane MD Primary Care Provider [phone] Social History Tobacco Use Types Packs/Day Years Used Date Smoking Tobacco: Never Assessed Interpersonal Safety Answer Date Record ed Physically Hurt Never 03/26/2020 Verbally Threaten Not on file 03/26/2020 Sex and Gender Information Value Date Recorded Sex Assigned at Not on file Gender Identity Not on file Sexual Orientation Not on file Plan of Treatment Health Maintenance Due Date Last Done Comments Hepatitis B Vaccine (1 of 3 - 19+ 3-dose series) 09/28 COVID-19 Vaccine ( season) 2023 Hepatitis C Screen Completed 06/10/2022 Procedures Procedure Name Priority Date/Time Associated Diagnosis Comments HEPATITIS C AB W REFLEX TO HCV RNA BY PCR Routine 06/10/2022 15:40 EDT from Last 3 Months or Most Recently Relevant to Health Maintenance Results * HEPATITIS C AB W REFLEX TO HCV RNA BY PCR (06/10/2022 15:40 EDT) Hep C Antibody Negative Negative 06/12/2022 9:57 EDT [facility] Blood VENOUS BLOOD / Unknown 06/10/2022 15:40 EDT 06/11/2022 16:50 EDT Provider Outr Resulting Lab CHEMISTRY & BLOOD GAS ORDERABLES [facility] [address] [place] [address] from Last 3 Months or Most Recently Relevant to Health Maintenance Care Teams Labor Relations Consultant Relationship Specialty Start Date End Date Fanta Keane MD [address] [place] [phone] PCP - General 11/03/17
--- OUTSIDE RECORDS SUMMARY | 2024-03-14 18:11 | XMS_ITS | Encounter Summary ---
Author Organization [facility] Address [address] [place] [address] Care Team Providers Care Dispatcher Maintenance Name Role Phone Unknown, Provider Primary Care Provider [phone] Encounter Details Date Type Department Care Team (Late st Contact Info) Description 10/27/2006 Results Only [facility] [address] [place] [address] La Benjamin, [address] [place] [address] Social History Tobacco Use Types [...] Priority Date/Time Associated Diagnosis Comments CYTOPATHOLOGY Routine 10/27/2006 0:00 EST documented in this encounter Results * CYTOPATHOLOGY (10/27/2006 0:00 EST) Pathology Report: CYTOPATHOLOGY REPORT Reports generated via electronic interface contain original data; however they are lacking the format of the original report. Caution should be taken when reading/interpreti ng unformatted reports. Name: ? ZOE MANN ? Accession #: ? [id number] : ? 1985 (Age: 21) ??F ?Collect Date: ? 10/27/2006 Location: ? [facility] ? Receive Date: ? 10/28/2006 Provider: ?LA BENJAMIN WOOD TILE INSTALLATION HELPER Copy to: ? Specimen/Source: ?ThinPrep Pap Test, Cervix/Endocervix, processed on [employer] ThinPrep Imaging System, with manual evaluation Last Menstrual Period: ? 10/13/06 Hormonal/Contracep tive Status: ? Oral contraceptives Other: ? HPVA - HPV testing requested if ASC-US on the current ThinPrep Pap test. ? SPECIMEN ADEQUACY ? Satisfactory for Evaluation - transformation zone component present GENERAL CATEGORIZATION ? Negative for Intraepithelial Lesion or Malignancy ? Document reviewed and electronically signed by: ? MADALYN Key(ASCP) ? Report Date: ??10/29/2006 14:11 End of Report DEEPAK MORENO 10/27/2006 10/28/2006 [place] Benjamin WOOD TILE INSTALLATION HELPER PATHOLOGY ORDERABLES Performing Organization Address City/State/[facility] Co de Phone Number [facility] [address] [place] [address] documented in this encounter Visit Diagnoses Not on filedocumented in this encounter Care Teams Dispatcher Maintenance Relationship Specialty Start Date End Date Unknown, Provider, PCP - General 06/28/09 11/02/17 documented as of this encounter
--- OUTSIDE RECORDS SUMMARY | 2024-03-14 18:11 | XMS_ITS | Encounter Summary ---
Author Organization [facility] Address [address] [place] [address] Care Team Providers Care Book Cutter Name Role Phone Fanta Keane MD Primary Care Provider [phone] Encounter Details Date Type Department Care Team (Late st Contact Info) Description 10/07/2020 Lab Requisition [facility] Pathology & Laboratory Medicine - [address] [address] Outr Resulting Lab, Provider Social History Tobacco [...] Comments ZZCOVID-19 TEST [facility] PCR Today 10/07/2020 10:00 EST COVID-19 TESTING Routine 10/07/2020 10:0 0 EST documented in this encounter Results * COVID-19 TEST [facility] PCR (10/07/2020 10:00 EST) Swab ENTIRE NASOPHARYNX / Unknown 10/07/2020 10:00 EST 10/07/2020 22:02 EST Provider Outr Resulting Lab MICROBIOLOGY - GENERAL ORDERABLES [facility] [address] [place] [address] * COVID-19 TESTING (10/07/2020 10:00 EST) COVID-19 rt-PCR Result Negative Negative 10/08/2020 1:05 EST [facility] Comment: This test has not [...] history, and epidemiological information. Performed on the Undaher Fusion instrument Performing Lab [place] [facility] 10/08/2020 1:05 EST [facility] Swab 10/07/2020 10:0 0 EST 10/07/2020 22:02 EST Provider Outr Resulting Lab MICROBIOLOGY - GENERAL ORDERABLES [facility] [address] [place] [address] documented in this encounter Visit Diagnoses Not on filedocumented in this encounter Additional Health Concerns Infection Onset Date Last Indicated Resolved Time COVID-19 07/11/2021 07/11/2021 07/31/2021 22:1 5 EST documented as of this encounter Care Teams Book Cutter Relationship Specialty Start Date End Date Fanta Keane MD [address] [place] [phone] PCP - General 11/03/17 documented as of this encounter
--- OUTSIDE RECORDS SUMMARY | 2024-03-14 18:11 | XMS_ITS | Encounter Summary ---
Author Organization [facility] Address [address] [place] [address] Care Team Providers Care Patient Ombudsperson Name Role Phone Fanta Keane MD Primary Care Provider [phone] Encounter Details Date Type Department Care Team (Late st Contact Info) Description 07/11/2021 Lab Requisition [facility] Pathology & Laboratory Medicine - [address] [address] Outr Resulting Lab, Provider Social History Tobacco [...] Comments ZZCOVID-19 TEST [facility] PCR Today 07/11/2021 10:58 EST COVID-19 TESTING Routine 07/11/2021 10:5 8 EST documented in this encounter Results * COVID-19 TEST [facility] PCR (07/11/2021 10:58 EST) Swab 07/11/2021 10:5 8 EST 07/11/2021 22:29 EST Provider Outr Resulting Lab MICROBIOLOGY - GENERAL ORDERABLES [facility] [address] [place] [address] * (ABNORMAL) COVID-19 TESTING (07/11/2021 10:58 EST) COVID-19 rt-PCR Result Positive(AA ) Negative 07/12/2021 2:23 EST [facility] Comment: This test has not [...] the authorization is terminated or revoked sooner. Performed on the LonoCloudher Fusion instrument Performing Lab [place] [facility] 07/12/2021 2:23 EST [facility] Swab 07/11/2021 10:5 8 EST 07/11/2021 22:29 EST Provider Outr Resulting Lab MICROBIOLOGY - GENERAL ORDERABLES [facility] [address] [place] [address] documented in this encounter Visit Diagnoses Not on filedocumented in this encounter Additional Health Concerns Infection Onset Date Last Indicated Resolved Time COVID-19 07/11/2021 07/11/2021 07/31/2021 22:1 5 EST documented as of this encounter Care Teams Patient Ombudsperson Relationship Specialty Start Date End Date Fanta Keane MD [address] [place] [phone] PCP - General 11/03/17 documented as of this encounter
--- OUTSIDE RECORDS SUMMARY | 2024-03-14 18:11 | XMS_ITS | Encounter Summary ---
Author Organization [facility] Address [address] [place] [address] Care Team Providers Care Engineering Professor Name Role Phone Fanta Villagomez MD Primary Care Provider [phone] Encounter Details Date Type Department Care Team (Late st Contact Info) Description 10/23/2018 Results Only [facility] [phone] Zoe Franco MD [facility] [facility] [address] [place], [place] [id number] Social History Tobacco Use Types Packs/Day Years Used Date Smoking Tobacco: Never Assessed Sex and Gender Information Value Date Recorded Sex Assigned at Not on file Gender Identity Not on file Sexual Orientation Not on file documented as of this encounter Plan of Treatment Not on file documented as of this encounter Procedures Procedure Name Priority Date/Time Associated Diagnosis Comments SURGICAL PATHOLOGY Routine 10/23/2018 17 :28 EST documented in this encounter Results * SURGICAL PATHOLOGY (10/23/2018 17:28 EST) Pathology Report: SURGICAL PATHOLOGY REPORT Reports generated via electronic interface contain original data; however they are lacking the format of the original report. Caution should be taken when reading/interpret ing unformatted reports. Name: ? ZOE MANN ? Accession #: ? [id number] ? : ? 1985 (Age: 33) ??F ? Collect Date: ? 10/23/2018 ? Location: ? [facility] ? Receive Date: ? 10/23/2018 ? Provider: ZOE FRANCO MD Copy to: FANTA VILLAGOMEZ MD ? Final Pathologic Diagnosis: A. ??CERVIX, 12 O'CLOCK, BIOPSY: - Squamous metaplasia. B. ??CERVIX, 9 O'CLOCK, BIOPSY: - Squamous metaplasia. C. ??CERVIX, 6 O'CLOCK, BIOPSY: - Squamous metaplasia. D. ??CERVIX, 3 O'CLOCK, BIOPSY: - Squamous metaplasia. Document reviewed and electronically signed by: ANA DONAHUE MD PHD Report ??Date: 10/27/2018 13:23 By the signature above, the attending physician certifies that he/she has personally conducted a gross and/or microscopic examination of the described specimens and rendered or confirmed the above diagnosis. Specimen(s) Received: A. ??12 o'clock B. ??9 o'clock C. ??6 o'clock D. ??3 o'clock Clinical History: HGSIL on colpo bx Gross Description: A. ?Received in formalin labelled with proper patient identification (initials B, A) and 12 o'clock cervix is a single wilkinson-brown portion of tissue with overlying squamous epithelium (1.2 x 0.9 cm, excised to a depth of 0.6 cm). The margin is inked blue. The specimen is serially sectioned submitted as A1 and A2. B. ?Received in formalin labelled with proper patient identification (initials B, A) and 9 o'clock cervix are two wilkinson-brown portions of tissue with overlying squamous epithelium (1.0 x 0.8 cm, excised to a depth of 0.4 cm and 0.6 x 0.5 cm, excised to a depth of 0.4 cm). The margin is inked blue. The larger tissue is serially sectioned and entirely submitted as B1. The smaller tissue is bisected and submitted as B2. C. ?Received in formalin labelled with proper patient identification (initials B, A) and 6 o'clock cervix is a single wilkinson-brown portion of tissue with overlying squamous epithelium (1.2 x 0.6 cm, excised to a depth of 0.4 cm). The margin is inked blue. The specimen is serially sectioned and submitted as C1 and C2. D. ?Received in formalin labelled with proper patient identification (initials B, A) and 3 o'clock cervix are two wilkinson-brown portions of tissue with overlying squamous epithelium (0.8 x 0.4 cm, excised to a depth of 0.4 cm and 0.7 x 0.3 cm, excised to a depth of 0.3 cm). The margin is inked blue. The fragments are entirely submitted as D1. Dr. Rodriguez 10/24/2018 10:57 AM End of Report [facility] 10/23/2018 17:2 8 EST 10/23/2018 17:28 EST Zoe Franco MD PATHOLOGY ORDERABLES Performing Organization Address City/State/[facility] Co de Phone Number [facility] [address] [place] [address] documented in this encounter Visit Diagnoses Not on filedocumented in this encounter Care Teams Engineering Professor Relationship Specialty Start Date End Date Fanta Villagomez MD [address] [place] [phone] PCP - General 11/03/17 documented as of this encounter
--- OUTSIDE RECORDS SUMMARY | 2024-03-14 18:11 | XMS_ITS | Encounter Summary ---
Author Organization [facility] Address [address] [place] [address] Care Team Providers Care Bleacher Sulfite Pulp Name Role Phone Fanta Keane MD Primary Care Provider [phone] Encounter Details Date Type Department Care Team (Latest Contact Info) Description 09/01/2018 15:01 EST - 09/01/2018 23:59 EST Hospital Encounter [address] [address] Unknown, Provider, Discharge Disposition: Home or Self Care Social History Tobacco Use Types Packs/Day Years Used Date Smoking Tobacco: Never Assessed Sex and Gender Information Value Date Recorded Sex Assigned at Not on file Gender Identity Not on file Sexual Orientation Not on file documented as of this encounter Discharge Disposition Disposition Code Departure Means Destination Home or Self Residential documented in this encounter Plan of Treatment Not on file documented as of this encounter Visit Diagnoses Not on filedocumented in this encounter Care Teams Bleacher Sulfite Pulp Relationship Specialty Start Date End Date Fanta Keane MD [address] [place] [phone] PCP - General 11/03/17 documented as of this encounter
--- OUTSIDE RECORDS SUMMARY | 2024-03-14 18:11 | XMS_ITS | Referral Summary ---
Author Organization [facility] Address [address] [place] [address] Care Team Providers Care Film Cleaner Name Role Phone Fanta Keane MD Primary Care Provider [phone] Social History Tobacco Use Types Packs/Day Years Used Date Smoking Tobacco: Never Assessed Interpersonal Safety Answer Date Record ed Physically Hurt Never 03/26/2020 Verbally Threaten Not on file 03/26/2020 Sex and Gender Information Value Date Recorded Sex Assigned at Not on file Gender Identity Not on file Sexual Orientation Not on file Plan of Treatment Not on file Procedures Procedure Name Priority Date/Time Associated Diagnosis Comments HEPATITIS C AB W REFLEX TO HCV RNA BY PCR Routine 06/10/2022 15:40 EDT from Last 3 Months or Most Recently Relevant to Health Maintenance Results * HEPATITIS C AB W REFLEX TO HCV RNA BY PCR (06/10/2022 15:40 EDT) Hep C Antibody Negative Negative 06/12/2022 9:57 EDT [facility] Blood VENOUS BLOOD / Unknown 06/10/2022 15:40 EDT 06/11/2022 16:50 EDT Provider Outr Resulting Lab CHEMISTRY & BLOOD GAS ORDERABLES [facility] [address] [place] [address] from Last 3 Months or Most Recently Relevant to Health Maintenance Care Teams Film Cleaner Relationship Specialty Start Date End Date Fanta Keane MD [address] [place] [phone] [facility] - General 11/03/17
--- OUTSIDE RECORDS SUMMARY | 2024-03-14 18:11 | XMS_ITS | Encounter Summary ---
Author Organization [facility] Address [address] [place] [address] Care Team Providers Care Tinsel Machine Operator Name Role Phone Unknown, Provider Primary Care Provider [phone] Encounter Details Date Type Department Care Team (Late st Contact Info) Description 07/31/2009 Orders Only [facility] [phone] Ghulam Murillo MD [address] [place] [address] Social History Tobacco Use Types Packs/Day Years Used Date Smoking Tobacco: Never Assessed Sex and Gender Information Value Date Recorded Sex Assigned at Not on file Gender Identity Not on file Sexual Orientation Not on file documented as of this encounter Plan of Treatment Not on file documented as of this encounter Procedures Procedure Name Priority Date/Time Associated Diagnosis Comments SURGICAL PATHOLOGY Routine 07/31/2009 0:00 EST documented in this encounter Results * SURGICAL PATHOLOGY (07/31/2009 0:00 EST) Pathology Report: SURGICAL PATHOLOGY REPORT ? Reports generated via electronic interface contain original data; ? however they are lacking the format of the original report. ? Caution should be taken when reading/interpreti ng unformatted reports. ? Name: ? ZOE MANN ? Accession #: ? [id number] ? : ? 1985 (Age: 23) ??F ? Collect Date: ? 07/31/2009 ? Location: ? [facility] ? Receive Date: ? 08/01/2009 ? Provider: GHULAM S IRINA MD ? Copy to: CEE SAROJ OVERCOILER ? Final Pathologic Diagnosis: ? A. ?Cervix, 12 o'clock, biopsy: ? 1. ?Low grade squamous intraepithelial lesion (KENNA I). ? B. ?Endocervix, curettage: ? 1. ?Benign endocervical glands and stroma. ? Document reviewed and electronically signed by: ? Hamilton Murrieta MD ? Report ??Date: 08/07/2009 14:14 ? By the signature above, the attending physician certifies that he/she has ? personally conducted a gross and/or microscopic examination of the described ? specimens and rendered or confirmed the above diagnosis. ? Specimen(s) Received: ? Colpo: ? A. ?12 o'clock ectocervical bx ? B. ? ECC ? Clinical History: ? 06/16/ Pap ASCUS (+) HPV; LMP: //09, control Ortho-Cyclen ? Gross Description: ? Received in formalin labelled Zoe Mann and 12 o'clock ectocervical ?? bx is a wilkinson-white biopsy measuring 0.4 x 0.3 x 0.3 cm. ??The specimen is ? submitted intact as (A). ? Received in formalin labelled Zoe Mann and endocervical curettage are 2 ?? cc of blood-tinged mucus admixed with fragments of red-brown tissue. ??The ? specimen is submitted entirely as (B). ??(Jennifer Schwarz)/guerrero ? End of Report ? DEEPA[facility] 07/31/2009 08/01/2009 9:1 7 EST Ghulam Murillo MD PATHOLOGY ORDERABLES [facility] [address] [place] [address] documented in this encounter Visit Diagnoses Not on filedocumented in this encounter Care Teams Tinsel Machine Operator Relationship Specialty Start Date End Date Unknown, Provider, PCP - General 06/28/09 11/02/17 documented as of this encounter
--- OUTSIDE RECORDS SUMMARY | 2024-03-14 18:11 | XMS_ITS | Encounter Summary ---
Author Organization [facility] Address [address] [place] [address] Care Team Providers Care Manufacturing Executive Name Role Phone Fanat Keane MD Primary Care Provider [phone] Encounter Details Date Type Department Care Team (Late st Contact Info) Description 09/10/2022 Lab Requisition [facility] Pathology & Laboratory Medicine - [address] [address] Sima Diaz MD [address] [place] [address],[address] [address] Encounter for other general examination Social History [...] Date/Time Associated Diagnosis Comments SURGICAL PATHOLOGY Today 09/09/2022 14 :40 EST Encounter for other general examination documented in this encounter Results * SURGICAL PATHOLOGY (09/09/2022 14:40 EST) Note to Patient The following pathology results have been interpreted by your pathologist and may be available to you before your health provider has had the opportunity to review them. Please allow time for your provider to receive these results and explore management options, if applicable. 09/12/2022 10:31 [facility] Final Diagnosis A. ENDOMETRIUM, BIOPSY: - Fragments of retained fibrotic chorionic villi. See comment. - Background inactive endometrium with decidualized stroma consistent with exogenous hormone use. 09/12/2022 10:31 [facility] Diagnosis Comment Focal plasma cells are present with the fibrotic chorionic villi, but no definitive chronic endometritis is identified. 09/12/2022 10:31 [facility] Attestation There was significant resident/fellow involvement in the diagnostic evaluation of this case. By the signature below, the attending physician certifies that they have personally conducted a gross and/or microscopic examination of the described specimens and rendered or confirmed the above diagnosis. 09/12/2022 10:31 [facility] at 1031 Clinical History Hx of endometritis 09/12/2022 10:31 [facility] Gross Description A. Received in formalin labelled with proper patient identification (initials B, A) and endometrium is an aggregate of wilkinson-white firm tissues, admixed translucent mucus, and a scant amount of blood clot (1.4 x 1.3 x 0.5 cm). Entirely submitted in A1. Day Cartagena 09/10/2022 9:19 09/12/2022 10:31 [facility] Resident/Anselmo w: Julio Henning 09/12/2022 10:31 [facility] Performing Lab [facility] 09/12/2022 10:31 [facility] Scanned Images 09/12/2022 10:31 [facility] Tissue ENTIRE ENDOMETRIUM / Unknown 09/09/2022 14:40 EST 09/10/2022 7:25 EST Sima Diaz MD PATHOLOGY ORDERABLES [facility] [address] [place] [address] documented in this encounter Visit Diagnoses Diagnosis Encounter for other general examination documented in this encounter Care Teams Manufacturing Executive Relationship Specialty Start Date End Date Fanta Keane MD [address] [place] [address] [place] [phone] PCP - General 11/03/17 documented as of this encounter
--- OUTSIDE RECORDS SUMMARY | 2024-03-14 18:11 | XMS_ITS | Encounter Summary ---
Author Organization [facility] Address [address] [place] [address] Care Team Providers Care Land Classifier Name Role Phone Fanta Keane MD Primary Care Provider [phone] Encounter Details Date Type Department Care Team (Late st Contact Info) Description 09/10/2022 Lab Requisition [facility] Pathology & Laboratory Medicine - [address] [address] Sima Diaz MD [address] [place] [address],[address] [place] [address] Encounter for other general examination Social History [...] Name Priority Date/Time Associated Diagnosis Comments PAP TEST Today 09/09/2022 14:40 EST Encounter for other general examination HPV DNA DETECTION WITH GENOTYPING, PCR Today 09/09/2022 14:40 EST Encounter for other general examination documented in this encounter Results * HUMAN PAPILLOMAVIRUS (HPV) DETECTION-HIGH RISK TYPES (09/09/2022 14:40 EST) HPV other High Risk types, PCR Negative Negative 09/19/2022 15:26 EST [facility] Comment:No E6 or E7 mRNA is detected from HPV types 16,18,31,33,35,39,45,51,52,56,58,59,66, and 68 by youth nutritional monitor mediated amplification. Papanicolaou smear specimen (specimen) CERVIX UTERI STRUCTURE / Unknown 09/09/2022 14:40 EST 09/17/2022 16:25 EST Sima Diaz MD MICROBIOLOGY - GENER AL ORDERABLES [facility] [address] [place] [address] * PAP TEST (09/09/2022 14:40 EST) Specimens A. Cervix and/or Endocervix , ThinPrep Imaging System with Manual Evaluation 09/19/2022 15:26 [facility] Specimen Adequacy Satisfactory for Evaluation - transformation zone component present 09/19/2022 15:26 [facility] General Categorization Negative for intraepithelial lesion or malignancy 09/19/2022 15:26 [facility] Descriptive Diagnosis Reactive cellular changes associated with inflammation present (includes repair). 09/19/2022 15:26 [facility] Attestation By the signature below, the attending physician certifies that they have personally conducted a gross and/or microscopic examination of the described specimens and rendered or confirmed the above diagnosis. 09/19/2022 15:26 [facility] at 1526 Clinical History See below 09/19/19 15:26 [facility] HPV The result for the Human Papillomavirus (HPV) Detection-High Risk Types is Negative. No E6 or E7 mRNA is detected from HPV types 16,18,31,33,35,39 ,45,51,52,56,58,5 9,66, and 68 by youth nutritional monitor mediated amplification.Maria Luz ting was performed on specimen [id number] and was resulted on 09/19/2022 1505 EST by EKATERINA, LAB INSTRUMENT RESULTS IN 09/19/2022 15:26 [facility] Performing Lab [facility] 09/19/2022 15:26 EST [facility] Scanned Images 09/19/2022 15:26 EST [facility] Papanicolaou smear specimen (specimen) CERVIX UTERI STRUCTURE / Unknown 09/09/2022 14:40 EST 09/10/2022 9:29 EST Sima Diaz MD PATHOLOGY ORDERABLES Performing Organization Address City/State/[facility] Co de Phone Number [facility] [address] [place] [address] documented in this encounter Visit Diagnoses Diagnosis Encounter for other general examination documented in this encounter Care Teams Land Classifier Relationship Specialty Start Date End Date Fanta Keane MD [address] [place] [phone] PCP - General 11/03/17 documented as of this encounter
--- OUTSIDE RECORDS SUMMARY | 2024-03-14 18:11 | XMS_ITS | Encounter Summary ---
Author Organization [facility] Address [address] [place] [address] Care Team Providers Care Lemon Grower Name Role Phone Fanta Keane MD Primary Care Provider [phone] Encounter Details Date Type Department Care Team (Late st Contact Info) Description 06/11/2022 Lab Requisition [facility] Pathology & Laboratory Medicine - [address] [address] Outr Resulting Lab, Provider Social History Tobacco [...] RNA BY PCR Routine 06/10/2022 15:40 EDT documented in this encounter Results * HEPATITIS C AB W REFLEX TO HCV RNA BY PCR (06/10/2022 15:40 EDT) Hep C Antibody Negative Negative 06/12/2022 9:57 EDT [facility] Blood VENOUS BLOOD / Unknown 06/10/2022 15:40 EDT 06/11/2022 16:50 EDT Provider Outr Resulting Lab CHEMISTRY & BLOOD GAS ORDERABLES [facility] [address] [place] [address] documented in this encounter Visit Diagnoses Not on filedocumented in this encounter Care Teams Lemon Grower Relationship Specialty Start Date End Date Fanta Keane MD [address] [place] [phone] PCP - General 11/03/17 documented as of this encounter
--- OUTSIDE RECORDS SUMMARY | 2024-03-14 18:11 | XMS_ITS | Encounter Summary ---
Author Organization [facility] Address [address] [place] [address] Care Team Providers Care Medical Nurse Name Role Phone Unavailable Primary Care Provider Unavailabl e Encounter Details Date Type Department Care Team (Late st Contact Info) Description 06/16/2009 Orders Only [facility] Services - [facility] ([facility]) [address] [place], [place] [id number] La Benjamin, [facility] [address] [place] [address] [place] [address] Social History Tobacco Use Types Packs/Day Years Used Date Smoking Tobacco: Never Assessed Sex and Gender Information Value Date Recorded Sex Assigned at Not on file Gender Identity Not on file Sexual Orientation Not on file documented as of this encounter Plan of Treatment Not on file documented as of this encounter Procedures Procedure Name Priority Date/Time Associated Diagnosis Comments HPV DETECTION, HIGH RISK TYPES Routine 06/16/2009 9:58 EDT CYTOPATHOLOGY Routine 06/16/2009 0:00 EDT documented in this encounter Results * HUMAN PAPILLOMA VIRUS DNA TEST (06/16/2009 9:58 EDT) Specimen Description Cervix, ThinPrep vial [facility] Result Positive for one or more of HPV types 16,18,31,33,35 ,39,45,51,52,5 6,58,59, or 68. These high/intermedi ate risk HPV types are associated with dysplasia and some cervical cancers. [facility] Report Status Final 06/29/2009 DEEPAK MORENO 06/16/2009 9:58 EDT 06/28/2009 9:58 EST La Benjamin MANAGER TALENT MANAGEMENT MICROBIOLOGY - GENER AL ORDERABLES [facility] [address] [place] [address] * CYTOPATHOLOGY (06/16/2009 0:00 EDT) Pathology Report: CYTOPATHOLOGY REPORT ? Reports generated via electronic interface contain original data; ? however they are lacking the format of the original report. ? Caution should be taken when reading/interpreti ng unformatted reports. ? Name: ? SIMA MANN ? Accession #: ? [id number] ? : ? 1985 (Age: 23) ??F ?Collect Date: ? 06/16/2009 ? Location: ? [facility] ? Receive Date: ? 06/16/2009 ? Provider: ?LA SAROJ MANAGER TALENT MANAGEMENT ? Copy to: ? Specimen/Source: ?Pap Test, Cervix/Endocervix, ThinPrep Imaging System ? with manual evaluation ? Last Menstrual Period: ? 10/18/09 ? Other: ? HPVA - HPV testing requested if ASC-US on the current ThinPrep Pap test. ? SPECIMEN ADEQUACY ? Satisfactory for Evaluation ? - transformation zone component present ? - scant squamous epithelial component secondary to excessive blood ? GENERAL CATEGORIZATION ? Epithelial Cell Abnormality ? INTERPRETATION ? Squamous Cell Abnormality - Atypical squamous cells, undetermined ? significance (ASC-US). ? EDUCATIONAL NOTES/RECOMMENDATI ONS ? [facility] recommends following the 2006 Consensus Guidelines for the Management of Women with Abnormal Cervical Cancer Screening Tests (JLGTD, ? 2007;11(4):201-222 ). ??Consensus guidelines are available online at ? www.ASCCP.org. ? Document reviewed and electronically signed by: ? ABDELMONEM ELHOSSEINY MD ? Report Date: ??06/27/2009 15:18 ? End of Report ? DEEPA[facility]OR[facility] 06/16/2009 06/16/2009 La Benjamin MANAGER TALENT MANAGEMENT PATHOLOGY ORDERABLES [facility] [address] [place] [address] documented in this encounter Visit Diagnoses Not on filedocumented in this encounter
--- OUTSIDE RECORDS SUMMARY | 2024-03-14 18:11 | XMS_ITS | Encounter Summary ---
Author Organization [facility] Address [address] [place] [address] Care Team Providers Care Rubber Process Hand Name Role Phone Unknown, Provider Primary Care Provider [phone] Encounter Details Date Type Department Care Team (Late st Contact Info) Description 08/03/2012 Results Only [facility] [phone] Ghulam Murillo MD [address] [place] [address] Social History Tobacco Use Types Packs/Day Years [...] Diagnosis Comments PAP TEST- RESULT ONLY Routine 08/03/2012 0:00 EST documented in this encounter Results * PAP TEST- RESULT ONLY (08/03/2012 0:00 EST) Pathology Report: CYTOPATHOLOGY REPORT Reports generated via electronic interface contain original data; however they are lacking the format of the original report. Caution should be taken when reading/interpreti ng unformatted reports. Name: ? ZOE MANN ? Accession #: ? [id number] : ? 1985 (Age: 26) ??F ?Collect Date: ? 08/03/2012 Location: ? [facility] ? Receive Date: ? 08/04/2012 Provider: ?GHULAM MURILLO MD Copy to: ? Specimen/Source: ?Pap Test, Cervix/Endocervix, ThinPrep Imaging System with manual evaluation Last Menstrual Period: ? Hormonal/Contracep tive Status: ? Intrauterine device: mirena ? SPECIMEN ADEQUACY ? Satisfactory for Evaluation - transformation zone component present GENERAL CATEGORIZATION ? Negative for Intraepithelial Lesion or Malignancy INTERPRETATION ? Reactive cellular changes associated with inflammation present (includes repair). ? Document reviewed and electronically signed by: ? BRENDA JIMÉNEZ MD ? Report Date: ??08/11/2012 12:00 End of Report DEEPA[facility] MORENO 08/03/2012 08/04/2012 Ghulam Murillo MD PATHOLOGY ORDERABLES Performing Organization Address City/State/[facility] Co de Phone Number [facility] [address] [place] [address] documented in this encounter Visit Diagnoses Not on filedocumented in this encounter Care Teams Rubber Process Hand Relationship Specialty Start Date End Date Unknown, Provider, PCP - General 06/28/09 11/02/17 documented as of this encounter
--- OUTSIDE RECORDS SUMMARY | 2024-03-14 18:11 | XMS_ITS | Encounter Summary ---
Author Organization [facility] Address [address] [place] [address] Care Team Providers Care Oxyacetylene Welder Name Role Phone Unknown, Provider Primary Care Provider [phone] Encounter Details Date Type Department Care Team (Late st Contact Info) Description 05/15/2011 Results Only [facility] [phone] Ghulam Murillo MD [address] [place] [address] Social History Tobacco Use Types Packs/Day Years [...] Diagnosis Comments PAP TEST- RESULT ONLY Routine 05/15/2011 0:00 EDT documented in this encounter Results * PAP TEST- RESULT ONLY (05/15/2011 0:00 EDT) Pathology Report: CYTOPATHOLOGY REPORT ? Reports generated via electronic interface contain original data; ? however they are lacking the format of the original report. ? Caution should be taken when reading/interpreti ng unformatted reports. ? Name: ? ZOE MANN ? Accession #: ? [id number] ? : ? 1985 (Age: 25) ??F ?Collect Date: ? 05/15/2011 ? Location: ? [facility] ? Receive Date: ? 05/16/2011 ? Provider: ?GHULAM MURILLO MD ? Copy to: ?BELINDA VILLAGOMEZ MD ? Specimen/Source: ?Pap Test, Cervix/Endocervix, ThinPrep Imaging System ? with manual evaluation ? Last Menstrual Period: ? Previous Gynecologic Pathology: ? KENNA I: 12/07/09 ? ASC-US: 08/02/10 neg HPV ? Other: ? Additional clinical information: 03/07/11 pap neg. ? SPECIMEN ADEQUACY ? Satisfactory for Evaluation ? - transformation zone component present ? GENERAL CATEGORIZATION ? Negative for Intraepithelial Lesion or Malignancy ? Document reviewed and electronically signed by: ? Lynan Prateek, [place](ASCP) ? Report Date: ??05/22/2011 15:58 ? End of Report ? [facility] 05/15/2011 05/16/2011 Ghulam Murillo MD PATHOLOGY ORDERABLES [facility] [address] [place] [address] documented in this encounter Visit Diagnoses Not on filedocumented in this encounter Care Teams Oxyacetylene Welder Relationship Specialty Start Date End Date Unknown, Provider, PCP - General 06/28/09 11/02/17 documented as of this encounter
--- OUTSIDE RECORDS SUMMARY | 2024-03-14 18:11 | XMS_ITS | Encounter Summary ---
Author Organization [facility] Address [address] [place] [address] Care Team Providers Care Supervisor [employer] Name Role Phone Unknown, Provider Primary Care Provider [phone] Encounter Details Date Type Department Care Team (Latest Contact Info) Description 10/20/2017 8:25 EST - 10/20/2017 23:59 EST Hospital Encounter [address] [address] Unknown, Provider, Discharge Disposition: Home or Self Care Social History Tobacco Use Types Packs/Day Years Used Date Smoking Tobacco: Never Assessed Sex and Gender Information Value Date Recorded Sex Assigned at Not on file Gender Identity Not on file Sexual Orientation Not on file documented as of this encounter Discharge Disposition Disposition Code Departure Means Destination Home or Self Halfway documented in this encounter Plan of Treatment Not on file documented as of this encounter Visit Diagnoses Not on filedocumented in this encounter Care Teams Supervisor [employer] Relationship Specialty Start Date End Date Unknown, Provider, PCP - General 06/28/09 11/02/17 documented as of this encounter
--- OUTSIDE RECORDS SUMMARY | 2024-03-14 18:11 | XMS_ITS | Encounter Summary ---
Author Organization [facility] Address [address] [place] [address] Care Team Providers Care Library Services Dean Name Role Phone Unknown, Provider Primary Care Provider [phone] Encounter Details Date Type Department Care Team (Late st Contact Info) Description 03/26/2010 Results Only [facility] [phone] Ghulam Murillo MD [address] [place] [address] Social History Tobacco Use Types Packs/Day Years [...] Comments HPV DETECTION, HIGH RISK TYPES Routine 03/26/2010 13:29 EDT CYTOPATHOLOGY Routine 03/26/2010 0:00 EDT documented in this encounter Results * HUMAN PAPILLOMA VIRUS DNA TEST (03/26/2010 13:29 EDT) Specimen Description Cervix, ThinPrep vial [facility] Result Negative for HPV types 16, 18, 31, 33, 35, 39, 45, 51, 52, 56, 58, 59, and 68. [facility] Report Status Final 04/11/2010 [facility] 03/26/2010 13:2 9 EDT 04/09/2010 13:29 EDT Ghulam Murillo MD MICROBIOLOGY - GENER AL ORDERABLES [facility] [address] [place] [address] * CYTOPATHOLOGY (03/26/2010 0:00 EDT) Pathology Report: CYTOPATHOLOGY REPORT ? Reports generated via electronic interface contain original data; ? however they are lacking the format of the original report. ? Caution should be taken when reading/interpreti ng unformatted reports. ? Name: ? ZOE MANN ? Accession #: ? [id number] ? : ? 1985 (Age: 24) ??F ?Collect Date: ? 03/26/2010 ? Location: ? [facility] ? Receive Date: ? 03/27/2010 ? Provider: ?GHULAM MURILLO MD ? Copy to: ? Specimen/Source: ?Pap Test, Cervix/Endocervix, ThinPrep Imaging System ? with manual evaluation ? Last Menstrual Period: ? 07/26/10 ? Previous Gynecologic Pathology: ? KENNA I: 12/07/09 ? Treatment History: ? Colposcopy: 12/07/09 KENNA I ? SPECIMEN ADEQUACY ? Satisfactory for Evaluation ? - transformation zone component present ? GENERAL CATEGORIZATION ? Epithelial Cell Abnormality ? INTERPRETATION ? Squamous Cell Abnormality - Atypical squamous cells, undetermined ? significance (ASC-US). ? EDUCATIONAL NOTES/RECOMMENDATI ONS ? [facility] recommends following the 2006 Consensus Guidelines for the Management of Women with Abnormal Cervical Cancer Screening Tests (JLGTD, ? 2007;11(4):201-222 ). ??Consensus guidelines are available online at ? www.ASCCP.org. ? Document reviewed and electronically signed by: ? Hamilton Murrieta MD ? Report Date: ??03/29/2010 12:50 ? End of Report ? [facility] 03/26/2010 03/27/2010 Ghulam Murillo MD PATHOLOGY ORDERABLES Performing Organization Address City/State/[facility] Co de Phone Number [facility] [address] [place] [address] documented in this encounter Visit Diagnoses Not on filedocumented in this encounter Care Teams Library Services Dean Relationship Specialty Start Date End Date Unknown, Provider, PCP - General 06/28/09 11/02/17 documented as of this encounter
--- OUTSIDE RECORDS SUMMARY | 2024-03-14 18:11 | XMS_ITS | Encounter Summary ---
Author Organization [facility] Address [address] [place] [address] Care Team Providers Care Hands Hanger Name Role Phone Fanta Keane MD Primary Care Provider [phone] Encounter Details Date Type Department Care Team (Late st Contact Info) Description 10/26/2021 Lab Requisition [facility] Pathology & Laboratory Medicine - [address] [address] Reshma Donnelly MD [address] [place] [address] [place] [address] Encounter for other general examination Social History [...] Date/Time Associated Diagnosis Comments SURGICAL PATHOLOGY Today 10/26/2021 8: 01 EST Encounter for other general examination documented in this encounter Results * SURGICAL PATHOLOGY (10/26/2021 8:01 EST) Note to Patient The following pathology results have been interpreted by your pathologist and may be available to you before your health provider has had the opportunity to review them. Please allow time for your provider to receive these results and explore management options, if applicable. 10/31/2021 16:12 EST [facility] Final Diagnosis A. INTRAUTERINE CONTENTS, EVACUATION: - Chorionic villi and decidua. 10/31/2021 16:12 [facility] Attestation There was significant resident/fellow involvement in the diagnostic evaluation of this case. By the signature below, the attending physician certifies that they have personally conducted a gross and/or microscopic examination of the described specimens and rendered or confirmed the above diagnosis. 10/31/2021 16:12 [facility] at 1612 Clinical History Missed 10/31/2021 16:12 [facility] Gross Description A. Received in formalin labelled with proper patient identification (initials B, A) and products of conception is an aggregate of wilkinson-brown soft tissue (4.5 x 3.2 x 0.6 cm) containing villous tissue and gestational sac and an aggregate of blood clot (4.5 x 2.7 x 0.7 cm). tissue is not identified. Hardener Helper sections submitted in A1-A3. JEFE SIGALA(ASCP) 10/29/2021 11:57 10/31/2021 16:12 [facility] Resident/Anselmo w: Erick Mcrae MD 10/31/2021 16:12 [facility] Performing Lab [facility] 10/31/2021 16:12 [facility] Scanned Images 10/31/2021 16:12 [facility] Tissue PRODUCTS OF CONCEPTION TISSUE SPECIMEN / Unknown 10/26/2021 8:01 EST 10/26/2021 21:52 EST Reshma Donnelly MD PATHOLOGY ORDERABLES [facility] [address] [place] [address] documented in this encounter Visit Diagnoses Diagnosis Encounter for other general examination documented in this encounter Care Teams Hands Hanger Relationship Specialty Start Date End Date Fanta Keane MD [address] [place] [phone] PCP - General 11/03/17 documented as of this encounter
--- OUTSIDE RECORDS SUMMARY | 2024-03-14 18:11 | XMS_ITS | Encounter Summary ---
Author Organization [facility] Address [address] [place] [address] Care Team Providers Care Law Secretary Name Role Phone Unknown, Provider Primary Care Provider [phone] Encounter Details Date Type Department Care Team (Late st Contact Info) Description 10/30/2007 Results Only [facility] - [facility] [address] [place] [address] La Benjamin, [address] [place] [address] Social History Tobacco Use Types [...] Priority Date/Time Associated Diagnosis Comments CYTOPATHOLOGY Routine 10/30/2007 0:00 EST documented in this encounter Results * CYTOPATHOLOGY (10/30/2007 0:00 EST) Pathology Report: CYTOPATHOLOGY REPORT Reports generated via electronic interface contain original data; however they are lacking the format of the original report. Caution should be taken when reading/interpreti ng unformatted reports. Name: ? ZOE MANN ? Accession #: ? [id number] : ? 1985 (Age: 22) ??F ?Collect Date: ? 10/30/2007 Location: ? [facility] ? Receive Date: ? 10/30/2007 Provider: ?LA BENJAMIN GRINDING WHEEL OPERATOR Copy to: ? Specimen/Source: ?ThinPrep Pap Test, Cervix/Endocervix, processed on [employer] ThinPrep Imaging System, with manual evaluation Last Menstrual Period: ? 10/20/07 Hormonal/Contracep tive Status: ? Oral contraceptives Other: ? HPVA - HPV testing requested if ASC-US on the current ThinPrep Pap test. ? SPECIMEN ADEQUACY ? Satisfactory for Evaluation - transformation zone component present GENERAL CATEGORIZATION ? Negative for Intraepithelial Lesion or Malignancy ? Document reviewed and electronically signed by: ? MADALYN Key(ASCP) ? Report Date: ??11/04/2007 09:31 End of Report [facility] 10/30/2007 10/30/2007 La Benjamin GRINDING WHEEL OPERATOR PATHOLOGY ORDERABLES Performing Organization Address City/State/[facility] Co de Phone Number [facility] [address] [place] [address] documented in this encounter Visit Diagnoses Not on filedocumented in this encounter Care Teams Law Secretary Relationship Specialty Start Date End Date Unknown, Provider, PCP - General 06/28/09 11/02/17 documented as of this encounter
--- OUTSIDE RECORDS SUMMARY | 2024-03-14 18:12 | XMS_ITS | Encounter Summary ---
Author Organization [facility] Address [address] [place] [address] Care Team Providers Care Dough Sheeter Name Role Phone Unknown, Provider Primary Care Provider [phone] Encounter Details Date Type Department Care Team (Late st Contact Info) Description 05/03/2004 Results Only [facility] - [place] conversion [address] [place] [address] Judy Turner MD [address] [place] [phone] Social History Tobacco Use Types Packs/Day Years Used Date Smoking Tobacco: Never Assessed Sex and Gender Information Value Date Recorded Sex Assigned at Not on file Gender Identity Not on file Sexual Orientation Not on file documented as of this encounter Plan of Treatment Not on file documented as of this encounter Procedures Procedure Name Priority Date/Time Associated Diagnosis Comments CYTOPATHOLOGY Routine 05/03/2004 0:00 EDT documented in this encounter Results * CYTOPATHOLOGY (05/03/2004 0:00 EDT) Pathology Report: CYTOPATHOLOGY REPORT Reports generated via electronic interface contain original data; however they are lacking the format of the original report. Caution should be taken when reading/interpreti ng unformatted reports. Name: ? ZOE MANN ? Accession #: ? [id number] : ? 1985 (Age: 18) ??F ?Collect Date: ? 05/03/2004 Location: ? [facility] ? Receive Date: ? 05/04/2004 Provider: ?JUDY TURNER MD Copy to: ? Specimen/Source: ?ThinPrep Pap Test, Vagina/Cervix/Endo cervix Last Menstrual Period: ? 04/19/04 Hormonal/Contracep tive Status: ? Oral contraceptives Other: ? Additional clinical information: Probable yeast, vaginitis ? SPECIMEN ADEQUACY ? Satisfactory for Evaluation - transformation zone component present GENERAL CATEGORIZATION ? Negative for Intraepithelial Lesion or Malignancy INTERPRETATION ? Fungal organisms present morphologically consistent with Duyen species. ? Document reviewed and electronically signed by: ? MADALYN Hines(ASCP) ? Report Date: ??05/08/2004 14:30 End of Report [facility] 05/03/2004 05/04/2004 Judy Ashley MD PATHOLOGY ORDERABLES Performing Organization Address City/State/[facility] Co de Phone Number [facility] [address] [place] [address] documented in this encounter Visit Diagnoses Not on filedocumented in this encounter Care Teams Dough Sheeter Relationship Specialty Start Date End Date Unknown, Provider, PCP - General 06/28/09 11/02/17 documented as of this encounter
--- OUTSIDE RECORDS SUMMARY | 2024-03-14 18:12 | XMS_ITS | Encounter Summary ---
Author Organization [facility] Address [address] [place] [address] Care Team Providers Care Feather Boner Name Role Phone Unknown, Provider Primary Care Provider [phone] Encounter Details Date Type Department Care Team (Late st Contact Info) Description 12/01/2002 Results Only [facility] Pediatric Primary Care - [address] [id number] Bertha Tariq MD [address] [place] [phone] Social History Tobacco Use Types Packs/Day Years Used Date Smoking Tobacco: Never Assessed Sex and Gender Information Value Date Recorded Sex Assigned at Not on file Gender Identity Not on file Sexual Orientation Not on file documented as of this encounter Plan of Treatment Not on file documented as of this encounter Procedures Procedure Name Priority Date/Time Associated Diagnosis Comments CYTOPATHOLOGY Routine 12/01/2002 0:00 EDT documented in this encounter Results * CYTOPATHOLOGY (12/01/2002 0:00 EDT) Pathology Report: CYTOPATHOLOGY REPORT Reports generated via electronic interface contain original data; however they are lacking the format of the original report. Caution should be taken when reading/interpreti ng unformatted reports. Name: ? ZOE MANN ? Accession #: ? [id number] : ? 1985 (Age: 17) ??F ?Collect Date: ? 12/01/2002 Location: ? [facility] ? Receive Date: ? 12/03/2002 Provider: ?BERTHA TARIQ MD Copy to: ? Specimen/Source: ?ThinPrep Pap Test, Cervix/Endocervix Last Menstrual Period: ? 11/10/02 Other: ? HPVL - HPV testing requested if LSIL/ASCUS/AYUSH on the current ThinPrep Pap test. ? SPECIMEN ADEQUACY ? Satisfactory for Evaluation - transformation zone component present GENERAL CATEGORIZATION ? Negative for Intraepithelial Lesion or Malignancy ? Document reviewed and electronically signed by: ? MADALYN Carmichael(ASCP) ? Report Date: ??12/08/2002 12:35 End of Report [facility] 12/01/2002 12/03/2002 Bertha Tariq MD PATHOLOGY ORDERABLES [facility] [address] [place] [address] documented in this encounter Visit Diagnoses Not on filedocumented in this encounter Care Teams Feather Boner Relationship Specialty Start Date End Date Unknown, Provider, PCP - General 06/28/09 11/02/17 documented as of this encounter
--- OUTSIDE RECORDS SUMMARY | 2024-03-14 18:12 | XMS_ITS | Encounter Summary ---
Author Organization [facility] Address [address] [place] [address] Care Team Providers Care Knockup Worker Name Role Phone Unknown, Provider Primary Care Provider [phone] Encounter Details Date Type Department Care Team (Late st Contact Info) Description 09/20/2005 Results Only [facility] Pediatric Primary Care - [address] [id number] Bertha Tariq MD [address] [place] [phone] Social History Tobacco Use Types Packs/Day Years Used Date Smoking Tobacco: Never Assessed Sex and Gender Information Value Date Recorded Sex Assigned at Not on file Gender Identity Not on file Sexual Orientation Not on file documented as of this encounter Plan of Treatment Not on file documented as of this encounter Procedures Procedure Name Priority Date/Time Associated Diagnosis Comments CYTOPATHOLOGY Routine 09/20/2005 0:00 EST documented in this encounter Results * CYTOPATHOLOGY (09/20/2005 0:00 EST) Pathology Report: CYTOPATHOLOGY REPORT Reports generated via electronic interface contain original data; however they are lacking the format of the original report. Caution should be taken when reading/interpreti ng unformatted reports. Name: ? ZOE MANN ? Accession #: ? [id number] : ? 1985 (Age: 19) ??F ?Collect Date: ? 09/20/2005 Location: ? [facility] ? Receive Date: ? 09/24/2005 Provider: ?BERTHA TARIQ MD Copy to: ? Specimen/Source: ?ThinPrep Pap Test, Cervix/Endocervix, processed on [employer] ThinPrep Imaging System, with manual evaluation Last Menstrual Period: ? Hormonal/Contracep tive Status: ? Oral contraceptives: Alesse Other: ? HPVL - HPV testing requested if LSIL/ASCUS/AYUSH on the current ThinPrep Pap test. ? SPECIMEN ADEQUACY ? Satisfactory for Evaluation - transformation zone component present GENERAL CATEGORIZATION ? Negative for Intraepithelial Lesion or Malignancy ? Document reviewed and electronically signed by: ? MADALYN Hines(ASCP) ? Report Date: ??09/25/2005 10:49 End of Report [facility] 09/20/2005 09/24/2005 Bertha Tariq MD PATHOLOGY ORDERABLES [facility] [address] [place] [address] documented in this encounter Visit Diagnoses Not on filedocumented in this encounter Care Teams Knockup Worker Relationship Specialty Start Date End Date Unknown, Provider, PCP - General 06/28/09 11/02/17 documented as of this encounter
[2024-03-14 18:15] LABS: Lipase 51 U/L (16-77)
--- NOTE | 2024-03-14 18:17 | DI.VRAD_ITS ---
PROCEDURE INFORMATION: Exam: XR Chest Exam date and time: 03/14/2024 5:40 PM Age: 38 years old Clinical indication: Pain; Chest pressure TECHNIQUE: Imaging protocol: Radiologic exam of the chest. Views: 1 view. COMPARISON: No relevant prior studies available. FINDINGS: Lungs: Unremarkable. No consolidation. Pleural spaces: Unremarkable. No pleural effusion. No pneumothorax. Heart/Mediastinum: Unremarkable. No cardiomegaly. Bones/joints: Unremarkable. IMPRESSION: No acute findings. Dictated and Authenticated by: Jesse Sood MD. Ordering:CHRISTINE Rae MD
[2024-03-14] MEDS: Ketorolac 15 MG/ML VIAL 10 MG IVP (18:40)
[2024-03-14] MEDS: ACETAMINOPHEN 1,000 MG/100 ML BTL 400 MG IVPB (18:41)
--- NOTE | 2024-03-14 21:20 | W.ED.GENAD ---
Discharge Plan Disposition Patient Disposition: Home Condition: Stable Discharge Details Clinical Impression: Chest pain Primary Care Provider: Juan Jones ED Provider: Brent Goetz Home Meds and New Rx's Prescriptions: No Action methylphenidate HCl 18 mg tablet extended release 24hr 18 mg PO DAILY PRN multivitamin Tablet 1 tab PO DAILY Kyleena 17.5 mcg/24 hrs (5 yrs) 19.5 mg intrauterine device 1 device intrauterine ONCE Qty: 1 0RF Rx Instructions: as a single dose methylphenidate HCl 5 mg tablet 5 mg PO DAILY Patient Comments: take 1 tablet by mouth at midday clonidine HCl 0.1 mg tablet 0.1 mg PO QHS PRN escitalopram oxalate [Lexapro] 5 mg tablet 5 mg PO DAILY ibuprofen 800 mg Tablet 800 mg PO TID PRN Discharge Instructions Instructions: Chest Pain (DC) Additional Instructions: Evaluation for life-threatening causes of your chest pain today are all reassuring. Please continue to try Motrin and Tylenol. You can also try some GI medications like Maalox or Pepcid to see if this might help If you continue to have symptoms, please follow-up with your primary care provider for reevaluation. You may need an outpatient stress test HPI General Date/Time Provider Initiated Documentation: 03/14/24 16:57. Limitations to Documentation: no limitations. Information obtained by: patient. HPI Narrative: 38-year-old female with no significant past medical history presents for evaluation of chest pain. She reports that she had some mild chest pain yesterday that was intermittent. No exacerbating or relieving factors. She reports that today while eating lunch she had acute onset of substernal chest pain. She reports some pain in her left arm. Some nausea, no shortness of breath or diaphoresis. Denies this being a smoker. Does not have a family history of cardiac disease. Related Data Home Medications ?Medication ?Instructions ?Recorded ?Confirmed escitalopram oxalate 5 mg tablet 5 mg PO DAILY 10/26/21 03/14/24 (Lexapro) methylphenidate HCl 18 mg 18 mg PO DAILY PRN 01/18/22 03/14/24 tablet,extended release 24 hr multivitamin 1 tab PO DAILY 01/18/22 03/14/24 ibuprofen 800 mg tablet 800 mg PO TID PRN 03/30/22 03/14/24 clonidine HCl 0.1 mg tablet 0.1 mg PO QHS PRN 03/04/23 03/14/24 methylphenidate HCl 5 mg tablet 5 mg PO DAILY 03/04/23 03/14/24 levonorgestrel 17.5 mcg/24 hr (up 1 device intrauterine ONCE #1 ea 06/03/23 03/14/24 to 5 yrs) 19.5mg intrauterine device (Kyleena) Previous Rx's ?Medication ?Instructions ?Recorded levonorgestrel 17.5 mcg/24 hr (up 1 device intrauterine ONCE #1 ea 06/03/23 to 5 yrs) 19.5mg intrauterine device (Kyleena) Allergies Allergy/AdvReac Type Severity Reaction Status Date / Time shellfish derived Allergy Intermediate Hives, Verified 03/14/24 16:54 Nausea,vomitting amoxicillin Allergy Skin Rash Verified 03/14/24 16:54 Environmental Allergy Intermediate Sneezing, Uncoded 03/14/24 16:54 watery eyes General Stated Complaint: Chest Pain LULU: 2 Exam Narrative Exam Narrative: Review of Systems: All systems reviewed & are unremarkable except as noted in HPI and below Well-developed, no acute distress NCAT PERRL, normal conjunctiva RRR no murmur, no chest wall tenderness Unlabored respiratory effort clear bilaterally Nondistended abdomen soft nontender Extremities w/o deformity, no cyanosis, no edema No rashes or lesions. no focal neurologic deficits Appropriate mood and affect Course Vital Signs Vital signs: Vital Signs Temperature 36.3 C L 03/14/24 16:51 Pulse 90 03/14/24 16:51 Respiratory Rate 14 03/14/24 16:51 Blood Pressure 147/76 H 03/14/24 16:51 Pulse Oximetry 98 03/14/24 16:51 Temperature 36.7 C 03/14/24 19:36 Temperature Source Skin 03/14/24 16:51 Pulse 76 03/14/24 19:36 Pulse 71 03/14/24 19:30 Respiratory Rate 18 03/14/24 19:36 Respiratory Effort Normal, Non-Labored 03/14/24 17:01 Respiratory Depth Normal 03/14/24 16:59 Respiratory Pattern Normal 03/14/24 16:59 Blood Pressure 124/63 03/14/24 19:36 Blood Pressure Mean 85 03/14/24 17:46 Blood Pressure Position Sitting 03/14/24 16:51 Pulse Oximetry 99 03/14/24 19:36 Oxygen Delivery Method Room Air 03/14/24 16:51 Oxygen Flow Rate 0 03/14/24 16:51 Pain Level 1 03/14/24 19:36 Lab/Test Results Lab/Test Results: Laboratory Tests Range/Units 03/14/24 03/14/24 16:54 20:06 WBC (4.4-10.8) 10^3/uL 14.68 H RBC (3.93-5.22) 10^6/uL 5.44 H Hgb (11.2-15.7) g/dL 16.5 H Hct (36.0-46.0) % 48.6 H MCV (80-95) fL 89 MCH (27.0-33.0) pg 30.3 MCHC (32.0-36.0) % 34.0 RDW (11.7-14.6) % 13.1 Plt Count (130-400) 10^3/uL 286 MPV (8.0-11.0) fL 8.7 Immature Gran % % 0.6 Neutrophils % % 64.4 Lymphocytes % % 24.5 Monocytes % % 8.4 Eosinophils % % 1.6 Basophils % % 0.5 Nucleated RBC % (0.0-0.3) % 0.0 Absolute Neutrophils (1.2-6.7) 10^3/uL 9.45 H Absolute Lymphocytes (1.2-3.4) 10^3/uL 3.60 H Absolute Monocytes (0.1-0.8) 10^3/uL 1.23 H Absolute Eosinophils (0.0-0.7) 10^3/uL 0.23 Absolute Basophils (0.0-0.2) 10^3/uL 0.07 D-Dimer (<500) ng/mlFEU 204 Sodium (136-145) mmol/L 143 Potassium (3.5-5.1) mmol/L 3.9 Chloride (98-107) mmol/L 101 Carbon Dioxide (21.0-32.0) mmol/L 32.1 H Anion Gap (3-11) mmol/L 9.9 BUN (7-18) mg/dL 11 Creatinine (0.55-1.02) mg/dL 0.8 Est GFR (CKD-EPI 2020) (mL/min/1.73m2) 96.06 Glucose (74-106) mg/dL 115 H Calcium (8.5-10.1) mg/dL 9.4 Magnesium (1.8-2.4) mg/dL 2.2 Total Bilirubin (0.2-1.0) mg/dL 0.29 AST (15-37) U/L 16 ALT (14-59) U/L 34 Alkaline Phosphatase (46-116) U/L 80 Troponin I (< or =60) ng/L < 50 Cancelled NT-Pro-B Natriuret Pep (<300) pg/mL 10 Total Protein (6.4-8.2) g/dL 7.7 Albumin (3.4-5.0) g/dL 4.1 Lipase (16-77) U/L 51 Medical Decision Making Emergent evaluation of chest pain. Patient is a 38-year-old female without any risk factors for coronary artery disease. She does not describe chest pain concerning for ACS or an atypical anginal variant. Her EKG is reviewed. It is sinus [address] flattening without any acute ischemic changes. Lab work was obtained, she does have some mild elevation in white blood cell count and hemoconcentration of her hemoglobin and hematocrit. She was given IV fluids. Her CMP does not demonstrate electrolyte derangement. Her BNP is negative. Her troponin is negative. She does not have risk factors for DVT, further reassurance provided by negative D-dimer. Her lipase is negative. She was given a full dose aspirin. She was given nitroglycerin but she reports that this made her chest pain worse. A repeat EKG was obtained and there are no changes of concern. A chest x-ray was also obtained, this does not demonstrate any acute cardiopulmonary findings. Patient was given Toradol and Tylenol, on my reevaluation, she does report feeling better. At this time I do not feel that the patient is having a cardiac etiology of her chest pain. I recommend close follow-up with her PCP. Strict return precautions advised. At this time she is discharged in good condition. Medical Records Medical records reviewed: Yes I reviewed the patient's medical records. Lab Data Lab results reviewed: Yes I reviewed the patient's lab results. Quality:SDOH Health Related Social Needs: No Data to Display PFSH All Active Problems Chest pain (Acute) Cubital tunnel syndrome on right (Acute) Carpal tunnel syndrome of right wrist (Acute) Encounter for IUD insertion (Acute) 05/2023. Kyleena Cubital tunnel syndrome on left (Acute) Paresthesia of both hands (Acute) Consultation for sterilization (Acute) 03/19/2023 History of abnormal uterine bleeding (Acute) Reactive depression (Acute 10/20/17) ADHD (Acute) Medical History History of endometrial biopsy 08/2022. To rule out previous endometritis. Encounter for IUD removal 08/2022. Kyleena removed. Presence of IUD Kyleena placed 01/14/22 High blood pressure KENNA II (cervical intraepithelial neoplasia II) 08/2018 colpo directed biopsies. 10/23/2018 LEEP: Squamous metaplasia, no dysplasia. 06/2020. LGSIL. Neg HPV. Carpal tunnel syndrome of left wrist Headache 09/2017 Neg MRI. Rx with Mg and Compazine for prophylaxis. FHx: diabetes mellitus (06/28/16) for HgbA1C screening w/ next blood draw; pt to call and give a heads up Migraine with aura and without status migrainosus, not intractable (10/21/17) UTI (urinary tract infection) 1-2x/yr. Fracture of left ankle Surgical History Hx of dilation and curettage History of wisdom tooth extraction History of carpal tunnel surgery of left wrist H/O LEEP 10/23/2018. No dysplasia History of Surgical Procedure a. Open reduction and internal fixation of bimalleolar ankle fracture left side. Social History Smoking/Tobacco Use Status: Former Tobacco Use Quit Date: 08/25/11 Tobacco: How many years used: 6 Smoking risk assessment performed?: Yes Alcohol Intake: current Alcohol Intake frequency: 0-2 drinks per day Alcohol type: wine Drug use: Socially Substance use type: marijuana Housing: house Number of Children: 0 current occupation: Studying for masters in social work Seatbelt use: always Do you feel safe at home: Yes Do you feel safe in your relationship?: Yes Female Reproductive History Menstrual control method: progestin IUCD History History 1 Para Hx # Term Pregnancies Multiple births Hx # Pregnancies Ectopic pregnancies AB induced Hx Number of Living Children AB spontaneous 1 Past Pregnancies Del. Date GA/Weeks # Preg Succ Route Wgt Sex Labor Lgth Anesthesia Location [facility] 10/26/[address] Donnelly Delivery Date: 10/26/21 Last Updated by: Reshma Donnelly MD MAB with D&C PAWSS Have you Been Recently Intoxicated or Drunk Within the Last 30 days?: No Have you Ever Experienced Previous Episodes of Alcohol Withdrawal?: No Have you ever Experienced Withdrawal Seizures?: No Have you ever Experienced Delirium Tremens(DT)s?: No Have you ever undergone Alcohol Rehabilitation Treatment (i.e, inpt ot outpatient treatment programs)?: No Have you ever Experienced Blackouts?: No Have you ever Combined Alcohol with other Downers within the last 90 days?: No Have you ever Combined Alcohol with any other Substance of Abuse during the last 90 days?: No Result: 0
== END 2024-03-14 19:36 | disposition home or self-care (01) ==
PROVIDERS: Emergency Provider Emergency Medicine; PCP Family Medicine
DX: R07.9 Chest pain, unspecified (principal); R06.02 Shortness of breath; Z87.891 Personal history of nicotine dependence
CPT/HCPCS: 36415; 80053; 83690; 93005; 96361; 96365; 96375; 99284; 99285; 71045; 83735; 83880; 84484; 85025; 85379; 93010; 99283; J0131; J1885; J2405

== ENCOUNTER 2024-03-30 18:51 | Outpatient (REF) | payer OTHER, SELFPAY ==
--- OUTSIDE RECORDS SUMMARY | 2024-03-30 18:55 | XMS_ITS | Encounter Summary ---
Author Organization [facility] Address [address] [place] [address] Care Team Providers Care Labeling Strategist Name Role Phone Fanta Keane MD Primary Care Provider Encounter Details Date Type Department Care Team (Late st Contact Info) Description 02/13/[address] [facility] Pathology & Laboratory Medicine - [address] [address] Sima Diaz MD [address] [place] [address],[address] [address] Encounter for other general examination Social History [...] explore management options, if applicable. 02/21/2022 11:20 [facility] Final Diagnosis A. 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 02/21/2022 11:20 [facility] Attestation By the signature below, the attending physician certifies that they have 1) personally conducted a gross and/or microscopic examination of the described specimen(s), and/or personally interpreted the results of laboratory testing of the described specimen(s), and 2) personally rendered or confirmed the above diagnosis. 02/21/2022 11:20 [facility] at 1120 Clinical History Thickened endometrial lining; oligomenorrhea 02/21/2022 11:20 [facility] Gross Description A. Received in formalin labelled with proper patient identification (initials B, A) and not otherwise specified is an aggregate of rubbery wilkinson-le tissue with minimal admixed blood clot, 3.0 x 2.0 x 2.0 cm. Entirely submitted in A1-A6. JEFE FREGOSO(ASCP) 02/14/2022 14:13 02/21/2022 11:20 [facility] Performing Lab [facility] 02/21/2022 11:20 [facility] Scanned Images 02/21/2022 11:20 [facility] Tissue ENTIRE ENDOMETRIUM / Unknown 02/13/2022 13:00 EDT 02/13/2022 23:44 EDT Sima Diaz MD PATHOLOGY ORDERABLES [facility] [address] [place] [address] documented in this encounter Visit Diagnoses Diagnosis Encounter for other general examination documented in this encounter Care Teams Labeling Strategist Relationship Specialty Start Date End Date Fnata Keane MD [address] [place] [phone] PCP - General 11/03/17 documented as of this encounter
--- OUTSIDE RECORDS SUMMARY | 2024-03-30 18:55 | XMS_ITS | Encounter Summary ---
Author Organization [facility] Address [address] [place] [address] Care Team Providers Care Ice Skater Name Role Phone Unknown, Provider Primary Care Provider [phone] Encounter Details Date Type Department Care Team (Late st Contact Info) Description 08/03/2012 Results Only [facility]- [facility] [phone] Ghulam Murillo MD [address] [place] [address] Social History Tobacco Use Types Packs/Day Years [...] ? ZOE MANN ? Accession #: ? [id number] : ? 1985 (Age: 26) ??F ?Collect [...] Murillo MD PATHOLOGY ORDERABLES Performing Organization Address City/State/[facility] Co de Phone Number DEEPAK MORENO [address] [place] [address] documented in this encounter Visit Diagnoses Not on filedocumented in this encounter Care Teams Ice Skater Relationship Specialty Start Date End Date Unknown, Provider, PCP - General 06/28/09 11/02/17 documented as of this encounter
--- OUTSIDE RECORDS SUMMARY | 2024-03-30 18:55 | XMS_ITS | Encounter Summary ---
Author Organization [facility] Address [address] [place] [address] Care Team Providers Care Marketing Lead Name Role Phone Fanta Keane MD Primary Care Provider [phone] Encounter Details Date Type Department Care Team (Late st Contact Info) Description 10/07/2020 Lab Requisition [facility] Pathology & Laboratory Medicine - [address] [address] Outr Resulting Lab, Provider Social History Tobacco [...] Outr Resulting Lab MICROBIOLOGY - GENERAL ORDERABLES [facility] [address] [place] [address] * COVID-19 TESTING (10/07/2020 10:00 EST) COVID-19 rt-PCR Result Negative Negative 10/08/2020 1:[address] [facility] Comment: This test has [...] history, and epidemiological information. Performed on the PopJaxher Fusion instrument Performing Lab [place] [facility] 10/08/2020 1:[address] [facility] Swab 10/07/2020 10:0 0 EST 10/07/2020 22:02 EST Provider Outr Resulting Lab MICROBIOLOGY - GENERAL ORDERABLES [facility] [address] [place] [address] documented in this encounter Visit Diagnoses Not on filedocumented in this encounter Additional Health Concerns Infection Onset Date Last Indicated Resolved Time COVID-19 07/11/2021 07/11/2021 07/31/2021 22:1 5 EST documented as of this encounter Care Teams Marketing Lead Relationship Specialty Start Date End Date Fanta Keane MD [address] [place] [phone] PCP - General 11/03/17 documented as of this encounter
--- OUTSIDE RECORDS SUMMARY | 2024-03-30 18:55 | XMS_ITS | Encounter Summary ---
Author Organization [facility] Address [address] [place] [address] Care Team Providers Care Forest Ecologist Name Role Phone Fanta Keane MD Primary Care Provider [phone] Encounter Details Date Type Department Care Team (Late st Contact Info) Description 03/20/2023 Lab Requisition [facility] Pathology & Laboratory Medicine - [address] [id number] Outr Resulting Lab, Provider Social History Tobacco [...] 2.4 See Note mIU/mL 03/21/2023 19:32 EDT [facility] Blood VENOUS BLOOD / Unknown 03/20/2023 16:05 EDT 03/21/2023 17:36 EDT Narrative [facility] - 03/21/2023 19:32 EDT NOTE: [...] & BLOOD GAS ORDERABLES Performing Organization Address [facility] Co de Phone Number [facility] [address] [place] [address] * ESTRADIOL, ADULTS (03/20/2023 16:05 EDT) [facility] Signature Estradiol 95 See Note pg/mL 03/21/2023 19:24 EDT [facility] Comment: NOTE: FEMALE REFERENCE RANGES: [...] & BLOOD GAS ORDERABLES Performing Organization Address [facility] [address] [facility] Co de Phone Number [facility] [address] [place] [address] documented in this encounter Visit Diagnoses Not on filedocumented in this encounter Care Teams Forest Ecologist Relationship Specialty Start Date End Date Fanta Keane MD [address] [place] [phone] PCP - General 11/03/17 documented as of this encounter
--- OUTSIDE RECORDS SUMMARY | 2024-03-30 18:55 | XMS_ITS | Clinical Summary ---
Author Organization [facility] Address [address] [place] [address] Care Team Providers Care Fixed Income Analyst Name Role Phone Fanta Keane MD Primary Care Provider [phone] Social History Tobacco Use Types Packs/Day Years [...] C Antibody Negative Negative 06/12/2022 9:57 EDT [facility] Blood VENOUS BLOOD / Unknown 06/10/2022 15:40 EDT 06/11/2022 16:50 EDT Provider Outr Resulting Lab CHEMISTRY & BLOOD GAS ORDERABLES [facility] [address] [place] [address] from Last 3 Months or Most Recently Relevant to Health Maintenance Care Teams Fixed Income Analyst Relationship Specialty Start Date End Date Fanta Keane MD [address] [place] [phone] PCP - General 11/03/17
--- OUTSIDE RECORDS SUMMARY | 2024-03-30 18:55 | XMS_ITS | Encounter Summary ---
Author Organization [facility] Address [address] [place] [address] Care Team Providers Care Licensing Officer Name Role Phone Fanta Keane MD Primary Care Provider [phone] Encounter Details Date Type Department Care Team (Late st Contact Info) Description 07/11/2021 Lab Requisition [facility] Pathology & Laboratory Medicine - [address] [address] Outr Resulting Lab, Provider Social History Tobacco [...] Outr Resulting Lab MICROBIOLOGY - GENERAL ORDERABLES [facility] [address] [place] [address] * (ABNORMAL) COVID-19 TESTING (07/11/2021 10:58 EST) COVID-19 rt-PCR Result Positive(AA ) Negative 07/12/2021 2:23 EST [facility] Comment: This test has not [...] terminated or revoked sooner. Performed on the Piqqualher Fusion instrument Performing Lab [place] [facility] 07/12/2021 2:23 EST [facility] Swab 07/11/2021 10:5 8 EST 07/11/2021 22:29 EST Provider Outr Resulting Lab MICROBIOLOGY - GENERAL ORDERABLES [facility] [address] [place] [address] documented in this encounter Visit Diagnoses Not on filedocumented in this encounter Additional Health Concerns Infection Onset Date Last Indicated Resolved Time COVID-19 07/11/2021 07/11/2021 07/31/2021 22:1 5 EST documented as of this encounter Care Teams Licensing Officer Relationship Specialty Start Date End Date Fanta Keane MD [address] [place] [phone] PCP - General 11/03/17 documented as of this encounter
--- OUTSIDE RECORDS SUMMARY | 2024-03-30 18:55 | XMS_ITS | Encounter Summary ---
Author Organization [facility] Address [address] [place] [address] Care Team Providers Care Law Firm Consultant Name Role Phone Unknown, Provider Primary Care Provider [phone] Encounter Details Date Type Department Care Team (Late st Contact Info) Description 04/18/2016 Results Only [facility] [phone] Ghulam Murillo MD [address] [place] [address] Social History Tobacco Use Types Packs/Day Years [...] ? ZOE MANN ? Accession #: ? [id number] ? : ? 1985 (Age: 30) ??F [...] 33,35,39,45,51,52, 56,58,59,66, and 67 is detected by service loss control consultant mediated amplification. High and intermediate risk HPV [...] confirmed the above diagnosis. End of Report [facility] 04/18/2016 04/19/2016 Ghulam Murillo MD PATHOLOGY ORDERABLES [facility] [address] [place], [place] [phone] documented in this encounter Visit Diagnoses Not on filedocumented in this encounter Care Teams Law Firm Consultant Relationship Specialty Start Date End Date Unknown, Provider, PCP - General 06/28/09 11/02/17 documented as of this encounter
--- OUTSIDE RECORDS SUMMARY | 2024-03-30 18:55 | XMS_ITS | Encounter Summary ---
Author Organization [facility] Address [address] [place] [address] Care Team Providers Care Financial Compliance Examiner Name Role Phone Fanta Keane MD Primary Care Provider [phone] Encounter Details Date Type Department Care Team (Late st Contact Info) Description 09/10/2022 Lab Requisition [facility] Pathology & Laboratory Medicine - [address] [address] Sima Diaz MD [address] [place] [address],[address] [address] Encounter for other general examination Social History [...] explore management options, if applicable. 09/12/2022 10:31 [facility] Final Diagnosis A. ENDOMETRIUM, BIOPSY: - Fragments of retained fibrotic chorionic villi. See comment. - Background inactive endometrium with decidualized stroma consistent with exogenous hormone use. 09/12/2022 10:31 [facility] Diagnosis Comment Focal plasma cells are present with the fibrotic chorionic villi, but no definitive chronic endometritis is identified. 09/12/2022 10:31 [facility] Attestation There was significant resident/fellow involvement in the diagnostic evaluation of this case. By the signature below, the attending physician certifies that they have personally conducted a gross and/or microscopic examination of the described specimens and rendered or confirmed the above diagnosis. 09/12/2022 10:31 [facility] at 1031 Clinical History Hx of endometritis 09/12/2022 10:31 [facility] Gross Description A. Received in formalin labelled with proper patient identification (initials B, A) and endometrium is an aggregate of wilkinson-white firm tissues, admixed translucent mucus, and a scant amount of blood clot (1.4 x 1.3 x 0.5 cm). Entirely submitted in A1. Day Cartagena 09/10/2022 9:19 09/12/2022 10:31 [facility] Resident/Anselmo w: Julio eHnning 09/12/2022 10:31 [facility] Performing Lab [facility] 09/12/2022 10:31 [facility] Scanned Images 09/12/2022 10:31 [facility] Tissue ENTIRE ENDOMETRIUM / Unknown 09/09/2022 14:40 EST 09/10/2022 7:25 EST Sima Diaz MD PATHOLOGY ORDERABLES [facility] [address] [place] [address] documented in this encounter Visit Diagnoses Diagnosis Encounter for other general examination documented in this encounter Care Teams Financial Compliance Examiner Relationship Specialty Start Date End Date Fanta Keane MD [address] [place] [address] [place] [phone] PCP - General 11/03/17 documented as of this encounter
--- OUTSIDE RECORDS SUMMARY | 2024-03-30 18:55 | XMS_ITS | Encounter Summary ---
Author Organization [facility] Address [address] [place] [address] Care Team Providers Care Groundman Name Role Phone Fanta Villagomez MD Primary Care Provider [phone] Encounter Details Date Type Department Care Team (Late st Contact Info) Description 10/23/2018 Results Only [facility]- [facility] [phone] Zoe Franco MD [facility] [place], [place] [phone] Social History Tobacco Use Types Packs/Day Years [...] ? ZOE MANN ? Accession #: ? [id number] ? : ? 1985 (Age: 33) ??F [...] Rodriguez 10/24/2018 10:57 AM End of Report [facility] 10/23/2018 17:2 8 EST 10/23/2018 17:28 EST Zoe Franco MD PATHOLOGY ORDERABLES Performing Organization Address City/State/[facility] Co de Phone Number [facility] [address] [place] [address] documented in this encounter Visit Diagnoses Not on filedocumented in this encounter Care Teams Groundman Relationship Specialty Start Date End Date Fanta Villagomez MD [address] [place] [phone] PCP - General 11/03/17 documented as of this encounter
--- OUTSIDE RECORDS SUMMARY | 2024-03-30 18:55 | XMS_ITS | Encounter Summary ---
Author Organization [facility] Address [address] [place] [address] Care Team Providers Care Finishing Manager Name Role Phone Fanta Keane MD Primary Care Provider [phone] Encounter Details Date Type Department Care Team (Late st Contact Info) Description 10/26/2021 Lab Requisition [facility] Pathology & Laboratory Medicine - [address] [address] Reshma Donnelly MD [address] [place] [address] [place] [address] Encounter for other general examination [...] management options, if applicable. 10/31/2021 16:12 EST [facility] Final Diagnosis A. INTRAUTERINE CONTENTS, EVACUATION: - Chorionic villi and decidua. 10/31/2021 16:12 [facility] Attestation There was significant resident/fellow involvement in the diagnostic evaluation of this case. By the signature below, the attending physician certifies that they have personally conducted a gross and/or microscopic examination of the described specimens and rendered or confirmed the above diagnosis. 10/31/2021 16:12 [facility] at 1612 Clinical History Missed 10/31/2021 16:12 [facility] Gross Description A. Received in formalin labelled with proper patient identification (initials B, A) and products of conception is an aggregate of wilkinson-brown soft tissue (4.5 x 3.2 x 0.6 cm) containing villous tissue and gestational sac and an aggregate of blood clot (4.5 x 2.7 x 0.7 cm). tissue is not identified. Folder Machine sections submitted in A1-A3. JEFE SIGALA(ASCP) 10/29/2021 11:57 10/31/2021 16:12 [facility] Resident/Anselmo w: Erick Mcrae MD 10/31/2021 16:12 [facility] Performing Lab [facility] 10/31/2021 16:12 [facility] Scanned Images 10/31/2021 16:12 [facility] Tissue PRODUCTS OF CONCEPTION TISSUE SPECIMEN / Unknown 10/26/2021 8:01 EST 10/26/2021 21:52 EST Reshma Donnelly MD PATHOLOGY ORDERABLES [facility] [address] [place] [address] documented in this encounter Visit Diagnoses Diagnosis Encounter for other general examination documented in this encounter Care Teams Finishing Manager Relationship Specialty Start Date End Date Fanta Keane MD [address] [place] [phone] PCP - General 11/03/17 documented as of this encounter
--- OUTSIDE RECORDS SUMMARY | 2024-03-30 18:55 | XMS_ITS | Referral Summary ---
Author Organization [facility] Address [address] [place] [address] Care Team Providers Care Shift Engineer Name Role Phone Fanta Keane MD Primary Care Provider [phone] Social History Tobacco Use Types Packs/Day Years [...] C Antibody Negative Negative 06/12/2022 9:57 EDT [facility] Blood VENOUS BLOOD / Unknown 06/10/2022 15:40 EDT 06/11/2022 16:50 EDT Provider Outr Resulting Lab CHEMISTRY & BLOOD GAS ORDERABLES [facility] [address] [place] [address] from Last 3 Months or Most Recently Relevant to Health Maintenance Care Teams Shift Engineer Relationship Specialty Start Date End Date Fanta Keane MD [address] [place] [phone] [facility] - General 11/03/17
--- OUTSIDE RECORDS SUMMARY | 2024-03-30 18:55 | XMS_ITS | Encounter Summary ---
Author Organization [facility] Address [address] [place] [address] Care Team Providers Care Dolphin Trainer Name Role Phone Fanta Villagomez MD Primary Care Provider [phone] Encounter Details Date Type Department Care Team (Late st Contact Info) Description 09/01/2018 Results Only [facility] [phone] Zoe Franco MD [facility] [place], [place] [phone] Social History Tobacco Use Types Packs/Day Years [...] block A and B have been examined. Dividend Deposit Voucher Clerk slides of this case were reviewed at intradepartmental consultation conference. ?? Immunoperoxidase staining was performed on part A to confirm the high grade squamous intraepithelial lesion and exclude atypical squamous metaplasia. The staining pattern is consistent with a high grade squamous intraepithelial lesion. ? ANTIBODY(CLONE)(BLOC K):RESULT P16 (E6H4TM, [place]) (block 1): positive; nuclear and cytoplasmic in [...] (ASCP) 09/02/2018 9:06 AM End of Report [facility] 09/01/2018 8:24 EST 09/01/2018 8:24 EST Zoe Franco MD PATHOLOGY ORDERABLES Performing Organization Address City/State/[facility] Co de Phone Number [facility] [address] [place] [address] documented in this encounter Visit Diagnoses Not on filedocumented in this encounter Care Teams Dolphin Trainer Relationship Specialty Start Date End Date Fanta Villagomez MD [address] [place] [phone] PCP - General 11/03/17 documented as of this encounter
--- OUTSIDE RECORDS SUMMARY | 2024-03-30 18:55 | XMS_ITS | Encounter Summary ---
Author Organization [facility] Address [address] [place] [address] Care Team Providers Care Academic Affairs Assistant Name Role Phone Fanta Keane MD Primary Care Provider [phone] Encounter Details Date Type Department Care Team (Late st Contact Info) Description 06/11/2022 Lab Requisition [facility] Pathology & Laboratory Medicine - [address] [address] Outr Resulting Lab, Provider Social History Tobacco [...] Negative Negative 06/12/2022 9:57 EDT [facility] Blood VENOUS BLOOD / Unknown 06/10/2022 15:40 EDT 06/11/2022 16:50 EDT Provider Outr Resulting Lab CHEMISTRY & BLOOD GAS ORDERABLES [facility] [address] [place] [address] documented in this encounter Visit Diagnoses Not on filedocumented in this encounter Care Teams Academic Affairs Assistant Relationship Specialty Start Date End Date Fanta Keane MD [address] [place] [phone] PCP - General 11/03/17 documented as of this encounter
--- OUTSIDE RECORDS SUMMARY | 2024-03-30 18:55 | XMS_ITS | Encounter Summary ---
Author Organization [facility] Address [address] [place] [address] Care Team Providers Care Extrusion Utility Worker Name Role Phone Fanta Keane MD Primary Care Provider [phone] Encounter Details Date Type Department Care Team (Late st Contact Info) Description 07/04/2021 Lab Requisition [facility] Pathology & Laboratory Medicine - [address] [address] Outr Resulting Lab, Provider Social History Tobacco [...] Lab MICROBIOLOGY - GENERAL ORDERABLES [facility] [address] [place] [address] * COVID-19 TESTING (07/04/2021 11:45 EST) COVID-19 rt-PCR Result Negative Negative 07/05/2021 2:01 EST [facility] Comment: This test [...] history, and epidemiological information. Performed on the DealerSocket Fusion instrument Performing Lab [facility] 07/05/2021 2:01 EST [facility] Swab 07/04/2021 11:4 5 EST 07/04/2021 22:57 EST Provider Outr Resulting Lab MICROBIOLOGY - GENERAL ORDERABLES [facility] [address] [place] [address] documented in this encounter Visit Diagnoses Not on filedocumented in this encounter Additional Health Concerns Infection Onset Date Last Indicated Resolved Time COVID-19 07/11/2021 07/11/2021 07/31/2021 22:1 5 EST documented as of this encounter Care Teams Extrusion Utility Worker Relationship Specialty Start Date End Date Fanta Keane MD [address] [place] [phone] PCP - General 11/03/17 documented as of this encounter
--- OUTSIDE RECORDS SUMMARY | 2024-03-30 18:55 | XMS_ITS | Encounter Summary ---
Author Organization [facility] Address [address] [place] [address] Care Team Providers Care Archeology Professor Name Role Phone Unknown, Provider Primary Care Provider [phone] Encounter Details Date Type Department Care Team (Latest Contact Info) Description 10/20/2017 8:25 EST - 10/20/2017 23:59 EST Hospital Encounter [address] [address] Unknown, Provider, Discharge Disposition: Home or Self Care Social History Tobacco Use Types Packs/Day Years Used Date Smoking Tobacco: Never Assessed Sex and Gender Information Value Date Recorded Sex Assigned at Not on file Gender Identity Not on file Sexual Orientation Not on file documented as of this encounter Discharge Disposition Disposition Code Departure Means Destination Home or Self Custodial documented in this encounter Plan of Treatment Not on file documented as of this encounter Visit Diagnoses Not on filedocumented in this encounter Care Teams Archeology Professor Relationship Specialty Start Date End Date Unknown, Provider, PCP - General 06/28/09 11/02/17 documented as of this encounter
--- OUTSIDE RECORDS SUMMARY | 2024-03-30 18:55 | XMS_ITS | Encounter Summary ---
Author Organization [facility] Address [address] [place] [address] Care Team Providers Care Manager Utilization Review Name Role Phone Fanta Keane MD Primary Care Provider [phone] Encounter Details Date Type Department Care Team (Latest Contact Info) Description 10/23/2018 18:00 EST - 10/23/2018 23:59 EST Hospital Encounter [address] [address] Unknown, Provider, Discharge Disposition: Home or Self Care Social History Tobacco Use Types Packs/Day Years Used Date Smoking Tobacco: Never Assessed Sex and Gender Information Value Date Recorded Sex Assigned at Not on file Gender Identity Not on file Sexual Orientation Not on file documented as of this encounter Discharge Disposition Disposition Code Departure Means Destination Home or Self [facility] documented in this encounter Plan of Treatment Not on file documented as of this encounter Visit Diagnoses Not on filedocumented in this encounter Care Teams Manager Utilization Review Relationship Specialty Start Date End Date Fanta Keane MD [address] [place] [phone] PCP - General 11/03/17 documented as of this encounter
--- OUTSIDE RECORDS SUMMARY | 2024-03-30 18:55 | XMS_ITS | Encounter Summary ---
Author Organization [facility] Address [address] [place] [address] Care Team Providers Care Nutrition Services Worker Name Role Phone Fanta Keane MD Primary Care Provider [phone] Encounter Details Date Type Department Care Team (Latest Contact Info) Description 09/01/2018 15:01 EST - 09/01/2018 23:59 EST Hospital Encounter [address] [address] Unknown, Provider, Discharge Disposition: Home or Self Care Social History Tobacco Use Types Packs/Day Years Used Date Smoking Tobacco: Never Assessed Sex and Gender Information Value Date Recorded Sex Assigned at Not on file Gender Identity Not on file Sexual Orientation Not on file documented as of this encounter Discharge Disposition Disposition Code Departure Means Destination Home or Self Usp documented in this encounter Plan of Treatment Not on file documented as of this encounter Visit Diagnoses Not on filedocumented in this encounter Care Teams Nutrition Services Worker Relationship Specialty Start Date End Date Fanta Keane MD [address] [place] [phone] PCP - General 11/03/17 documented as of this encounter
--- OUTSIDE RECORDS SUMMARY | 2024-03-30 18:55 | XMS_ITS | Encounter Summary ---
Author Organization [facility] Address [address] [place] [address] Care Team Providers Care Cone Sewer Name Role Phone Fanta Keane MD Primary Care Provider [phone] Encounter Details Date Type Department Care Team (Late st Contact Info) Description 09/10/2022 Lab Requisition [facility] Pathology & Laboratory Medicine - [address] [address] Sima Diaz MD [address] [place] [address],[address] [place] [address] Encounter for other general examination Social History [...] types, PCR Negative Negative 09/19/2022 15:26 EST [facility] Comment:No E6 or E7 mRNA is detected from HPV types 16,18,31,33,35,39,45,51,52,56,58,59,66, and 68 by linux security administrator mediated amplification. Papanicolaou smear specimen (specimen) CERVIX UTERI STRUCTURE / Unknown 09/09/2022 14:40 EST 09/17/2022 16:25 EST Sima Diaz MD MICROBIOLOGY - GENER AL ORDERABLES [facility] [address] [place] [address] * PAP TEST (09/09/2022 14:40 EST) Specimens A. Cervix and/or Endocervix , ThinPrep Imaging System with Manual Evaluation 09/19/2022 15:26 [facility] Specimen Adequacy Satisfactory for Evaluation - transformation zone component present 09/19/2022 15:26 [facility] General Categorization Negative for intraepithelial lesion or malignancy 09/19/2022 15:26 [facility] Descriptive Diagnosis Reactive cellular changes associated with inflammation present (includes repair). 09/19/2022 15:26 [facility] Attestation By the signature below, the attending physician certifies that they have personally conducted a gross and/or microscopic examination of the described specimens and rendered or confirmed the above diagnosis. 09/19/2022 15:26 [facility] at 1526 Clinical History See below 09/19/19 15:26 [facility] HPV The result for the Human Papillomavirus (HPV) Detection-High Risk Types is Negative. No E6 or E7 mRNA is detected from HPV types 16,18,31,33,35,39 ,45,51,52,56,58,5 9,66, and 68 by linux security administrator mediated amplification.Maria Luz ting was performed on specimen [id number] and was resulted on 09/19/2022 1505 EST by EKATERINA, LAB INSTRUMENT RESULTS IN 09/19/2022 15:26 [facility] Performing Lab [facility] 09/19/2022 15:26 EST [facility] Scanned Images 09/19/2022 15:26 EST [facility] Papanicolaou smear specimen (specimen) CERVIX UTERI STRUCTURE / Unknown 09/09/2022 14:40 EST 09/10/2022 9:29 EST Sima Diaz MD PATHOLOGY ORDERABLES Performing Organization Address City/State/[facility] Co de Phone Number [facility] [address] [place] [address] documented in this encounter Visit Diagnoses Diagnosis Encounter for other general examination documented in this encounter Care Teams Cone Sewer Relationship Specialty Start Date End Date Fanta Keane MD [address] [place] [phone] PCP - General 11/03/17 documented as of this encounter
--- OUTSIDE RECORDS SUMMARY | 2024-03-30 18:55 | XMS_ITS | Encounter Summary ---
Author Organization [facility] Address [address] [place] [address] Care Team Providers Care Chief Executive Or Managing Director Name Role Phone Unknown, Provider Primary Care Provider [phone] Encounter Details Date Type Department Care Team (Late st Contact Info) Description 10/20/2017 Results Only [facility] [phone] Zoe Franco MD [facility] [facility] [place], [place] [phone] Social History Tobacco Use Types Packs/Day Years [...] ? ZOE MANN ? Accession #: ? [id number] ? : ? 1985 (Age: 32) ??F [...] undetermined significance (ASC-US). EDUCATIONAL NOTES/RECOMMENDATI ONS ? [facility] recommends following ASCCP's 2012 Updated Consensus Guidelines [...] 33,35,39,45,51,52, 56,58,59,66, and 68 is detected by backup engineer mediated amplification. High and intermediate risk HPV [...] confirmed the above diagnosis. End of Report [facility] 10/20/2017 10/21/2017 Zoe Franco MD PATHOLOGY ORDERABLES [facility] [address] [place] [address] documented in this encounter Visit Diagnoses Not on filedocumented in this encounter Care Teams Chief Executive Or Managing Director Relationship Specialty Start Date End Date Unknown, Provider, PCP - General 06/28/09 11/02/17 documented as of this encounter
--- OUTSIDE RECORDS SUMMARY | 2024-03-30 18:56 | XMS_ITS | Encounter Summary ---
Author Organization [facility] Address [address] [place] [address] Care Team Providers Care Production Officer Name Role Phone Unknown, Provider Primary Care Provider [phone] Encounter Details Date Type Department Care Team (Late st Contact Info) Description 10/30/[address] [facility] [address] [place] [address] [place], [address] [place] [address] Social History Tobacco Use Types [...] ? ZOE MANN ? Accession #: ? [id number] : ? 1985 (Age: 22) ??F ?Collect Date: ? 10/30/2007 Location: ? [facility] ? Receive Date: ? 10/30/2007 Provider: ?[place] TREASURY ASSOCIATE Copy to: ? Specimen/Source: ?ThinPrep Pap Test, Cervix/Endocervix, processed on [employer]ink ThinPrep Imaging System, with manual evaluation Last [...] Report [facility] 10/30/2007 10/30/2007 [place] TREASURY ASSOCIATE PATHOLOGY ORDERABLES Performing Organization Address City/State/[facility] Co de Phone Number [facility] [address] [place] [address] documented in this encounter Visit Diagnoses Not on filedocumented in this encounter Care Teams Production Officer Relationship Specialty Start Date End Date Unknown, Provider, PCP - General 06/28/09 11/02/17 documented as of this encounter
--- OUTSIDE RECORDS SUMMARY | 2024-03-30 18:56 | XMS_ITS | Encounter Summary ---
Author Organization [facility] Address [address] [place] [address] Care Team Providers Care Supervisor Shipping Name Role Phone Unknown, Provider Primary Care Provider [phone] Encounter Details Date Type Department Care Team (Late st Contact Info) Description 05/03/2004 Results Only [facility] [address] [place] [address] Judy Turner MD [address] [place] [phone] Social History Tobacco Use Types Packs/Day Years [...] ? ZOE MANN ? Accession #: ? [id number] : ? 1985 (Age: 18) ??F ?Collect [...] Ashley MD PATHOLOGY ORDERABLES Performing Organization Address City/State/[facility] Co de Phone Number [facility] [address] [place] [address] documented in this encounter Visit Diagnoses Not on filedocumented in this encounter Care Teams Supervisor Shipping Relationship Specialty Start Date End Date Unknown, Provider, PCP - General 06/28/09 11/02/17 documented as of this encounter
--- OUTSIDE RECORDS SUMMARY | 2024-03-30 18:56 | XMS_ITS | Encounter Summary ---
Author Organization [facility] Address [address] [place] [address] Care Team Providers Care Pediatric Dental Assistant Name Role Phone Unknown, Provider Primary Care Provider [phone] Encounter Details Date Type Department Care Team (Late st Contact Info) Description 05/15/2011 Results Only [facility] [phone] Ghulam Murillo MD [address] [place] [address] Social History Tobacco Use Types Packs/Day Years [...] ? ZOE MANN ? Accession #: ? [id number] ? : ? 1985 (Age: 25) ??F [...] MD PATHOLOGY ORDERABLES [facility] [address] [place] [address] documented in this encounter Visit Diagnoses Not on filedocumented in this encounter Care Teams Pediatric Dental Assistant Relationship Specialty Start Date End Date Unknown, Provider, PCP - General 06/28/09 11/02/17 documented as of this encounter
--- OUTSIDE RECORDS SUMMARY | 2024-03-30 18:56 | XMS_ITS | Encounter Summary ---
Author Organization [facility] Address [address] [place] [address] Care Team Providers Care Creosoting Engineer Name Role Phone Unknown, Provider Primary Care Provider [phone] Encounter Details Date Type Department Care Team (Late st Contact Info) Description 03/26/2010 Results Only [facility] [phone] Ghulam Murillo MD [address] [place] [address] Social History Tobacco Use Types Packs/Day Years [...] GENER AL ORDERABLES [facility] [address] [place] [address] * CYTOPATHOLOGY (03/26/2010 0:00 EDT) Pathology Report: CYTOPATHOLOGY REPORT ? Reports generated via electronic interface contain original data; ? however they are lacking the format of the original report. ? Caution should be taken when reading/interpreti ng unformatted reports. ? Name: ? ZOE MANN ? Accession #: ? [id number] ? : ? 1985 (Age: 24) ??F [...] significance (ASC-US). ? EDUCATIONAL NOTES/RECOMMENDATI ONS ? [facility] recommends following the 2006 Consensus Guidelines for the Management of Women with Abnormal Cervical Cancer Screening Tests (JLGTD, ? 2007;11(4):201-222 ). ??Consensus guidelines are available online at ? www.ASCCP.org. ? Document reviewed and electronically signed by: ? Hamilton Murrieta MD ? Report Date: ??03/29/2010 12:50 ? End of Report ? [facility] 03/26/2010 03/27/2010 Ghulam Murillo MD PATHOLOGY ORDERABLES Performing Organization Address City/State/[facility] Co de Phone Number [facility] [address] [place] [address] documented in this encounter Visit Diagnoses Not on filedocumented in this encounter Care Teams Creosoting Engineer Relationship Specialty Start Date End Date Unknown, Provider, PCP - General 06/28/09 11/02/17 documented as of this encounter
--- OUTSIDE RECORDS SUMMARY | 2024-03-30 18:56 | XMS_ITS | Encounter Summary ---
Author Organization [facility] Address [address] [place] [address] Care Team Providers Care Store Receiving Specialist Name Role Phone Unknown, Provider Primary Care Provider [phone] Encounter Details Date Type Department Care Team (Late st Contact Info) Description 10/27/2006 Results Only [facility] - [facility] conversion [address] [place] [address] La Benjamin, [address] [place] [address] Social History Tobacco Use Types [...] ? ZOE MANN ? Accession #: ? [id number] : ? 1985 (Age: 21) ??F ?Collect Date: ? 10/27/2006 Location: ? [facility] ? Receive Date: ? 10/28/2006 Provider: ?LA BENJAMIN PENSION FUND MANAGER Copy to: ? Specimen/Source: ?ThinPrep Pap Test, Cervix/Endocervix, processed on [employer] ThinPrep Imaging System, with manual evaluation Last [...] Report DEEPA[facility] MOR[facility] 10/27/2006 10/28/2006 La Benjamin PENSION FUND MANAGER PATHOLOGY ORDERABLES Performing Organization Address City/State/[facility] Co de Phone Number [facility] [address] [place] [address] documented in this encounter Visit Diagnoses Not on filedocumented in this encounter Care Teams Store Receiving Specialist Relationship Specialty Start Date End Date Unknown, Provider, PCP - General 06/28/09 11/02/17 documented as of this encounter
--- OUTSIDE RECORDS SUMMARY | 2024-03-30 18:56 | XMS_ITS | Encounter Summary ---
Author Organization [facility] Address [address] [place] [address] Care Team Providers Care Benefit Authorizer Name Role Phone Unknown, Provider Primary Care Provider [phone] Encounter Details Date Type Department Care Team (Late st Contact Info) Description 10/29/2010 Results Only [facility] Services - [facility] [place] [address] [place], [place] [phone] Cee Benjamin, [facility] [address] [place] [address] [place] [address] Social History Tobacco Use Types [...] ? SIMA MANN ? Accession #: ? [id number] ? : ? 1985 (Age: 25) ??F ?Collect Date: ? 10/29/2010 ? Location: ? [facility] ? Receive Date: ? 10/31/2010 ? Provider: ?CEE SAROJ DRAPERY MAKER ? Copy to: ? Specimen/Source: ?Pap Test, [...] of Report ? DEEPAK MORENO 10/29/2010 10/31/2010 Cee Benjamin DRAPERY MAKER PATHOLOGY ORDERABLES Performing Organization Address City/State/[facility] Co de Phone Number [facility] [address] [place] [address] documented in this encounter Visit Diagnoses Not on filedocumented in this encounter Care Teams Benefit Authorizer Relationship Specialty Start Date End Date Unknown, Provider, PCP - General 06/28/09 11/02/17 documented as of this encounter
--- OUTSIDE RECORDS SUMMARY | 2024-03-30 18:56 | XMS_ITS | Encounter Summary ---
Author Organization [facility] Address [address] [place] [address] Care Team Providers Care Cigar Wrapper Tender Automatic Name Role Phone Unknown, Provider Primary Care Provider [phone] Encounter Details Date Type Department Care Team (Late st Contact Info) Description 09/20/2005 Results Only [facility] Pediatric Primary Care - [address] [phone] Bertha Tariq MD [address] [place] [phone] Social History Tobacco Use Types Packs/Day [...] ? ZOE MANN ? Accession #: ? [id number] : ? 1985 (Age: 19) ??F ?Collect Date: ? 09/20/2005 Location: ? [facility] ? Receive Date: ? 09/24/2005 Provider: ?BERTHA TARIQ MD Copy to: ? Specimen/Source: ?ThinPrep Pap Test, Cervix/Endocervix, processed on [employer] ThinPrep Imaging System, with manual evaluation Last [...] MD PATHOLOGY ORDERABLES [facility] [address] [place] [address] documented in this encounter Visit Diagnoses Not on filedocumented in this encounter Care Teams Cigar Wrapper Tender Automatic Relationship Specialty Start Date End Date Unknown, Provider, PCP - General 06/28/09 11/02/17 documented as of this encounter
--- OUTSIDE RECORDS SUMMARY | 2024-03-30 18:56 | XMS_ITS | Encounter Summary ---
Author Organization [facility] Address [address] [place] [address] Care Team Providers Care Medical Authorization Specialist Name Role Phone Unavailable Primary Care Provider Unavailabl e Encounter Details Date Type Department Care Team (Late st Contact Info) Description 06/16/2009 Orders Only [facility] Laboratory Services - [facility] ([facility]) [address] [place], [place] [phone] La Benjamin, [facility] [address] [place] [address] [place] [address] Social History Tobacco Use Types [...] 9:58 EDT 06/28/2009 9:58 EST La Benjamin METROLOGY TECHNICIAN MICROBIOLOGY - GENER AL ORDERABLES [facility] [address] [place] [address] * CYTOPATHOLOGY (06/16/2009 0:00 EDT) Pathology Report: CYTOPATHOLOGY REPORT ? Reports generated via electronic interface contain original data; ? however they are lacking the format of the original report. ? Caution should be taken when reading/interpreti ng unformatted reports. ? Name: ? SIMA MANN ? Accession #: ? [id number] ? : ? 1985 (Age: 23) ??F ?Collect Date: ? 06/16/2009 ? Location: ? [facility] ? Receive Date: ? 06/16/2009 ? Provider: ?LA SAROJ METROLOGY TECHNICIAN ? Copy to: ? Specimen/Source: ?Pap Test, [...] significance (ASC-US). ? EDUCATIONAL NOTES/RECOMMENDATI ONS ? [facility] recommends following the 2006 Consensus Guidelines for the Management of Women with Abnormal Cervical Cancer Screening Tests (JLGTD, ? 2007;11(4):201-222 ). ??Consensus guidelines are available online at ? www.ASCCP.org. ? Document reviewed and electronically signed by: ? ABDELMONEM ELHOSSEINY MD ? Report Date: ??06/27/2009 15:18 ? End of Report ? DEEPAK MORENO 06/16/2009 06/16/2009 La Benjamin METROLOGY TECHNICIAN PATHOLOGY ORDERABLES [facility] [address] [place] [address] documented in this encounter Visit Diagnoses Not on filedocumented in this encounter
--- OUTSIDE RECORDS SUMMARY | 2024-03-30 18:56 | XMS_ITS | Encounter Summary ---
Author Organization [facility] Address [address] [place] [address] Care Team Providers Care Structural Layout Worker Name Role Phone Unknown, Provider Primary Care Provider [phone] Encounter Details Date Type Department Care Team (Late st Contact Info) Description 07/31/[address] [facility] [phone] Ghulam Murillo MD [address] [place] [address] Social History Tobacco Use Types Packs/Day Years [...] ? ZOE MANN ? Accession #: ? [id number] ? : ? 1985 (Age: 23) ??F ? Collect Date: ? 07/31/2009 ? Location: ? [facility] ? Receive Date: ? 08/01/2009 ? Provider: GHULAM S IRINA MD ? Copy to: CEE SAROJ UI DESIGNER ? Final Pathologic Diagnosis: ? A. ?Cervix, [...] Gross Description: ? Received in formalin labelled oZe Mann and 12 o'clock ectocervical ?? bx [...] MD PATHOLOGY ORDERABLES [facility] [address] [place] [address] documented in this encounter Visit Diagnoses Not on filedocumented in this encounter Care Teams Structural Layout Worker Relationship Specialty Start Date End Date Unknown, Provider, PCP - General 06/28/09 11/02/17 documented as of this encounter
--- OUTSIDE RECORDS SUMMARY | 2024-03-30 18:56 | XMS_ITS | Encounter Summary ---
Author Organization [facility] Address [address] [place] [address] Care Team Providers Care Heel Emery Buffer Name Role Phone Unknown, Provider Primary Care Provider [phone] Encounter Details Date Type Department Care Team (Late st Contact Info) Description 12/01/2002 Results Only [facility] Pediatric Primary Care - [address] [phone] Bertha Tariq MD [address] [place] [phone] Social History Tobacco Use Types Packs/Day [...] ? ZOE MANN ? Accession #: ? [id number] : ? 1985 (Age: 17) ??F ?Collect [...] Tariq MD PATHOLOGY ORDERABLES [facility] [address] [place] [address] documented in this encounter Visit Diagnoses Not on filedocumented in this encounter Care Teams Heel Emery Buffer Relationship Specialty Start Date End Date Unknown, Provider, PCP - General 06/28/09 11/02/17 documented as of this encounter
[2024-04-03 05:38] LABS: Methylphenidate 93 ng/mL (Cutoff: 10); Ritalinic Acid 3168 ng/mL (Cutoff: 50)
== END 2024-03-30 18:52 | disposition home or self-care (01) ==
LOC: NCHCN 18:51
PROVIDERS: PCP Family Medicine; Visit Provider Student in an Organized Health Care Education/Training Program
DX: F90.9 Attention-deficit hyperactivity disorder, unspecified type (principal); Z79.899 Other long term (current) drug therapy
CPT/HCPCS: 80360